=== PATIENT | female | born 1970 | race Caucasian/White ===

== ENCOUNTER → 2020-03-28 13:59 | Outpatient (BNVA) | payer MEDICAID, SELFPAY | PROVIDERS: Family Provider Family Medicine; PCP Family Medicine; Visit Provider Family Medicine | DX: R35.0 Frequency of micturition (principal); N39.0 Urinary tract infection, site not specified; R30.0 Dysuria; I10 Essential (primary) hypertension | CPT/HCPCS: 80053; 81003 ==

== ENCOUNTER → 2020-07-04 15:48 | Outpatient (BNVA) | payer MEDICAID, SELFPAY | PROVIDERS: Family Provider Family Medicine; PCP Family Medicine; Visit Provider Nurse Practitioner Family | DX: Z11.59 Encounter for screening for other viral diseases (principal); J06.9 Acute upper respiratory infection, unspecified | CPT/HCPCS: 87635 ==

== ENCOUNTER 2020-11-19 15:15 | Emergency (ER) | payer MEDICAID, SELFPAY ==
[2020-11-19] VITALS (8 sets, daily range): BP systolic 110–143; BP diastolic 76–92; PULSE 86–95; RESP 15–17; TEMP 36.2–36.5; O2SAT 98–100; BMI 31.9
--- NOTE | 2020-11-19 16:28 | XRR_ITS ---
PROCEDURE INFORMATION: Exam: XR Chest Exam date and time: 11/19/2020 4:40 PM Age: 50 years old Clinical indication: Cough; Prior surgery; Surgery date: 6+ months; Surgery type: Port, RT breast; Patient HX: PT has a HX of breast CA with chemo, last chemo 3-4 yrs ago TECHNIQUE: Imaging protocol: XR of the chest Views: 1 view. COMPARISON: No relevant prior studies available. FINDINGS: Tubes, catheters and devices: Infusion port catheter tip is in the superior vena cava. Lungs: Visualized portions of the lungs are clear. Pleural spaces: Unremarkable. No pleural effusion. No pneumothorax. Heart/Mediastinum: Heart is within normal limits of size. Bones/joints: Unremarkable. XR/XR chest 1V portable [id number] IMPRESSION: No acute infiltrates.
--- NOTE | 2020-11-19 17:20 | W.ED.NAVMDI ---
Documented by User: PAYTON Lawler 11/19/20 22:56 HPI - Nausea/Vomiting/Diarrhea General: Chief complaint: Nausea/Vomiting/Diarrhea Stated complaint: N/V, fatigue Time Seen by Provider: 11/19/20 16:37 History of Present Illness: HPI Narrative: Patient with nausea increased urination and thirst over the last week or 2. Was supposed to be worked up for diabetes. Was unable to make and to provider. Denies fever or chills. MD elicited complaint: nausea and diarrhea Onset (ago): week(s) Associated nausea: Yes Associated symtoms: Reports myalgias and nausea; Denies anxiety, change in vision, chest pain or headache(s) Review of Systems Const: Denies: fever(s), chills or body aches Eyes: Reports: blurry vision; Denies: change in vision ENMT: Reports: other (Increased thirst); Denies: throat pain or nasal congestion Card: Denies: chest pain or dyspnea on exertion Resp: Denies: dyspnea, productive cough or non-productive cough GI: Reports: nausea : Reports: urinary frequency Musc: Reports: other (Muscle aches); Denies: extremity pain Skin/Breast: Denies: rash Neuro: Denies: headache(s) Psych: Denies: anxiety or depression Sim/Lymph: Denies: easy bruising PFSH ED PFSH: Social History Smoking and tobacco status: current every day smoker cigarettes [ Other cigarette details: uses vape ] Alcohol intake: never Physical Exam Const: COMMON NORMALS: no acute distress, average body habitus and patient oriented x3 HENMT: COMMON NORMALS: normocephalic HEAD & SCALP: normal to inspection and normocephalic FACE & SINUS: normal facial exam Eye: COMMON NORMALS: conjunctivae normal GENERAL EYE: appearance normal, both eyes and all related structures CONJUNCTIVA: Yes conjunctivae normal Neck/C-Spine: COMMON NORMALS: no JVD Chest: COMMONS NORMALS: normal inspection of the chest Resp: COMMON NORMALS: normal respiratory effort and clear to auscultation bilaterally AUSCULTATION: clear to auscultation bilaterally Cardio: COMMON NORMALS: no JVD, regular rate and regular rhythm RATE: regular rate RHYTHM: regular rhythm GI: COMMON NORMALS: Normal to inspection, nondistended, normoactive bowel sounds present Extremity: COMMON NORMALS: normal to inspection and full ROM Neuro: COMMON NORMALS: patient oriented x3 Course Vital Signs: Vital signs: Vital Signs Temperature 97.5 F L 11/19/20 21:44 Pulse Rate 90 11/19/20 21:44 Respiratory Rate 16 11/19/20 21:44 Blood Pressure 131/82 11/19/20 21:44 Pulse Oximetry 100 11/19/20 21:44 MDM - Nausea/Vomiting/Diarrhea Lab Data: Labs: Lab Results 11/19/20 11/19/20 11/19/20 Range/Units 17:10 17:10 17:58 WBC 8.0 (4.0-10.0) 10^3/ uL RBC 2.55 L (4.1-5.3) 10^6/u L Hgb 6.4 L* (11.5-15.3) g/dL Hct 19.3 L* (37.0-47.0) % MCV 75.7 L (81-99) fL MCH 25.1 L (28.0-34.0) pg MCHC 33.2 (30.0-36.0) g/dL RDW 19.0 H (12.1-15.1) % Plt Count 309 (130-400) 10^3/c mm MPV 10.7 H (7.4-10.4) fL Neut % (Auto) 84.6 % Lymph % (Auto) 8.3 % [place] % (Auto) 4.4 % Eos % (Auto) 0.4 % Baso % (Auto) 0.4 % Neut # (Auto) 6.75 (1.8-7.7) 10^3/u L Lymph # (Auto) 0.7 L (0.8-4.8) 10^3/u L [place] # (Auto) 0.4 (0.2-0.9) 10^3/u L Eos # (Auto) 0.0 (0.0-0.8) 10^3/u L Baso # (Auto) 0.0 (0.0-0.1) 10^3/u L Nucleated RBC % (a uto) 0.3 % Nucleated RBCs # 0.0 /100WBC Sodium 124 L (136-145) mmol/L Potassium 4.5 (3.5-5.1) mmol/L Chloride 84 L (98-107) mmol/L Carbon Dioxide 8 L* (22-29) mmol/L Anion Gap 36.5 H (5-19) BUN 163 H* (6-20) mg/dL Creatinine 19.4 H* (0.5-0.9) mg/dL GFR Calculation 1.9 L (90-130) mL/min Glucose 92 (65-115) mg/dL Calculated Osmolal ity 311 H (285-295) mOsm/k g Calcium 8.4 L (8.5-10.5) mg/dL Total Bilirubin 0.2 (0.15-1.2) mg/dL AST 12 (0-32) U/L ALT 12 (0-33) U/L Alkaline Phosphata se 88 (35-105) IU/L Total Protein 6.9 (6.6-8.7) g/dL Albumin 3.7 (3.5-5.2) g/dL Globulin 3.2 (1.3-4.6) g/dL Lipase 200 H (13-60) U/L Urine Color (Yellow) Urine Appearance (CLEAR) Urine pH (5-7) Ur Specific Gravit y (1.005-1.030) Urine Protein (Negative) Urine Glucose (UA) (Normal) Urine Ketones (Negative) Urine Blood (Negative) Urine Nitrate (Negative) Urine Bilirubin (Negative) Urine Urobilinogen (Negative) mg/dL Ur Leukocyte Mechelle ase (Negative) Urine RBC (0-2) /hpf Urine WBC (0-5) /hpf Ur Squamous Epith Cells (0-5) /hpf Amorphous Sediment Urine Bacteria (NONE) /hpf Blood Type O Positive Rho(D) Type Positive Antibody Screen Negative Crossmatch See Detail 11/19/20 Range/Units 21:04 WBC (4.0-10.0) 10^3/ uL RBC (4.1-5.3) 10^6/u L Hgb (11.5-15.3) g/dL Hct (37.0-47.0) % MCV (81-99) fL MCH (28.0-34.0) pg MCHC (30.0-36.0) g/dL RDW (12.1-15.1) % Plt Count (130-400) 10^3/c mm MPV (7.4-10.4) fL Neut % (Auto) % Lymph % (Auto) % [place] % (Auto) % Eos % (Auto) % Baso % (Auto) % Neut # (Auto) (1.8-7.7) 10^3/u L Lymph # (Auto) (0.8-4.8) 10^3/u L [place] # (Auto) (0.2-0.9) 10^3/u L Eos # (Auto) (0.0-0.8) 10^3/u L Baso # (Auto) (0.0-0.1) 10^3/u L Nucleated RBC % (a uto) % Nucleated RBCs # /100WBC Sodium (136-145) mmol/L Potassium (3.5-5.1) mmol/L Chloride (98-107) mmol/L Carbon Dioxide (22-29) mmol/L Anion Gap (5-19) BUN (6-20) mg/dL Creatinine (0.5-0.9) mg/dL GFR Calculation (90-130) mL/min Glucose (65-115) mg/dL Calculated Osmolal ity (285-295) mOsm/k g Calcium (8.5-10.5) mg/dL Total Bilirubin (0.15-1.2) mg/dL AST (0-32) U/L ALT (0-33) U/L Alkaline Phosphata se (35-105) IU/L Total Protein (6.6-8.7) g/dL Albumin (3.5-5.2) g/dL Globulin (1.3-4.6) g/dL Lipase (13-60) U/L Urine Color Yellow (Yellow) Urine Appearance Sl cloudy A (CLEAR) Urine pH 5 (5-7) Ur Specific Gravit y 1.010 (1.005-1.030) Urine Protein Neg (Negative) Urine Glucose (UA) Norm (Normal) Urine Ketones Negative (Negative) Urine Blood 3+ H (Negative) Urine Nitrate Positive H (Negative) Urine Bilirubin Neg (Negative) Urine Urobilinogen Norm (Negative) mg/dL Ur Leukocyte Mechelle ase 2+ H (Negative) Urine RBC Too numerous to c nt H (0-2) /hpf Urine WBC Too numerous to c nt H (0-5) /hpf Ur Squamous Epith Cells 0-4 H (0-5) /hpf Amorphous Sediment Not Reportable Urine Bacteria 4+ H (NONE) /hpf Blood Type Rho(D) Type Antibody Screen Crossmatch Discharge Plan Discharge Patient Disposition: Xfer Other Clinical Impression: Bladder cancer, Acute renal failure, Severe anemia, Acute hyponatremia, Acute urinary obstruction Condition: Stable Referrals: Ortiz Clark DO [Primary Care Provider] - Coding Level of Care Code ED Hospital Admitting Clerk for Chg Fwd Exam Comprehensive Documented by User: Kalen Herrera MD 11/19/20 21:17 HPI - Nausea/Vomiting/Diarrhea General: Chief complaint: Nausea/Vomiting/Diarrhea Stated complaint: N/V, fatigue Time Seen by Provider: 11/19/20 16:37 PFSH ED PFSH: Social History Smoking and tobacco status: current every day smoker cigarettes [ Other cigarette details: uses vape ] Alcohol intake: never Course Vital Signs: Vital signs: Vital Signs Temperature 97.5 F L 11/19/20 21:44 Pulse Rate 90 11/19/20 21:44 Respiratory Rate 16 11/19/20 21:44 Blood Pressure 131/82 11/19/20 21:44 Pulse Oximetry 100 11/19/20 21:44 MDM - Nausea/Vomiting/Diarrhea MDM Narrative: Medical decision making narrative: I took over care of this patient from the midlevel provider. She has anemia which is severe 6.4. Guaiac is negative for blood. Creatinine is 19.4 and BUN 163. Potassium normal. She is in acute renal failure cause unknown and this is a new diagnosis today. Discussed with Dr. Brock who accepts for further care and will consult nephrology and surgery upstairs. The patient continues to urinate a normal amount she says. Gave her a liter of IV fluids prior to admission. Also typed and crossmatched for transfusion of 1 unit PRBC. Discussed with the hospitalist Dr Brock after the patient's CT scan but came back showing a primary cancer of the bladder obstructing the urethra and bilateral ureterovesicular junctions. Associated bladder distention and hydroureter and hydronephrosis. Discussed with Dr. Ibarra who recommended transfer as the patient likely needs urostomy tubes placed prior to a stenting procedure.. Discussed with patient and family and they preferred transfer to [place]. Discussed with [facility] physician Dr. Herrera who accepts for transfer. Lab Data: Labs: Lab Results 11/19/20 11/19/20 11/19/20 Range/Units 17:10 17:10 17:58 WBC 8.0 (4.0-10.0) 10^3/ uL RBC 2.55 L (4.1-5.3) 10^6/u L Hgb 6.4 L* (11.5-15.3) g/dL Hct 19.3 L* (37.0-47.0) % MCV 75.7 L (81-99) fL MCH 25.1 L (28.0-34.0) pg MCHC 33.2 (30.0-36.0) g/dL RDW 19.0 H (12.1-15.1) % Plt Count 309 (130-400) 10^3/c mm MPV 10.7 H (7.4-10.4) fL Neut % (Auto) 84.6 % Lymph % (Auto) 8.3 % [place] % (Auto) 4.4 % Eos % (Auto) 0.4 % Baso % (Auto) 0.4 % Neut # (Auto) 6.75 (1.8-7.7) 10^3/u L Lymph # (Auto) 0.7 L (0.8-4.8) 10^3/u L [place] # (Auto) 0.4 (0.2-0.9) 10^3/u L Eos # (Auto) 0.0 (0.0-0.8) 10^3/u L Baso # (Auto) 0.0 (0.0-0.1) 10^3/u L Nucleated RBC % (a uto) 0.3 % Nucleated RBCs # 0.0 /100WBC Sodium 124 L (136-145) mmol/L Potassium 4.5 (3.5-5.1) mmol/L Chloride 84 L (98-107) mmol/L Carbon Dioxide 8 L* (22-29) mmol/L Anion Gap 36.5 H (5-19) BUN 163 H* (6-20) mg/dL Creatinine 19.4 H* (0.5-0.9) mg/dL GFR Calculation 1.9 L (90-130) mL/min Glucose 92 (65-115) mg/dL Calculated Osmolal ity 311 H (285-295) mOsm/k g Calcium 8.4 L (8.5-10.5) mg/dL Total Bilirubin 0.2 (0.15-1.2) mg/dL AST 12 (0-32) U/L ALT 12 (0-33) U/L Alkaline Phosphata se 88 (35-105) IU/L Total Protein 6.9 (6.6-8.7) g/dL Albumin 3.7 (3.5-5.2) g/dL Globulin 3.2 (1.3-4.6) g/dL Lipase 200 H (13-60) U/L Urine Color (Yellow) Urine Appearance (CLEAR) Urine pH (5-7) Ur Specific Gravit y (1.005-1.030) Urine Protein (Negative) Urine Glucose (UA) (Normal) Urine Ketones (Negative) Urine Blood (Negative) Urine Nitrate (Negative) Urine Bilirubin (Negative) Urine Urobilinogen (Negative) mg/dL Ur Leukocyte Mechelle ase (Negative) Urine RBC (0-2) /hpf Urine WBC (0-5) /hpf Ur Squamous Epith Cells (0-5) /hpf Amorphous Sediment Urine Bacteria (NONE) /hpf Blood Type O Positive Rho(D) Type Positive Antibody Screen Negative Crossmatch See Detail 11/19/20 Range/Units 21:04 WBC (4.0-10.0) 10^3/ uL RBC (4.1-5.3) 10^6/u L Hgb (11.5-15.3) g/dL Hct (37.0-47.0) % MCV (81-99) fL MCH (28.0-34.0) pg MCHC (30.0-36.0) g/dL RDW (12.1-15.1) % Plt Count (130-400) 10^3/c mm MPV (7.4-10.4) fL Neut % (Auto) % Lymph % (Auto) % [place] % (Auto) % Eos % (Auto) % Baso % (Auto) % Neut # (Auto) (1.8-7.7) 10^3/u L Lymph # (Auto) (0.8-4.8) 10^3/u L [place] # (Auto) (0.2-0.9) 10^3/u L Eos # (Auto) (0.0-0.8) 10^3/u L Baso # (Auto) (0.0-0.1) 10^3/u L Nucleated RBC % (a uto) % Nucleated RBCs # /100WBC Sodium (136-145) mmol/L Potassium (3.5-5.1) mmol/L Chloride (98-107) mmol/L Carbon Dioxide (22-29) mmol/L Anion Gap (5-19) BUN (6-20) mg/dL Creatinine (0.5-0.9) mg/dL GFR Calculation (90-130) mL/min Glucose (65-115) mg/dL Calculated Osmolal ity (285-295) mOsm/k g Calcium (8.5-10.5) mg/dL Total Bilirubin (0.15-1.2) mg/dL AST (0-32) U/L ALT (0-33) U/L Alkaline Phosphata se (35-105) IU/L Total Protein (6.6-8.7) g/dL Albumin (3.5-5.2) g/dL Globulin (1.3-4.6) g/dL Lipase (13-60) U/L Urine Color Yellow (Yellow) Urine Appearance Sl cloudy A (CLEAR) Urine pH 5 (5-7) Ur Specific Gravit y 1.010 (1.005-1.030) Urine Protein Neg (Negative) Urine Glucose (UA) Norm (Normal) Urine Ketones Negative (Negative) Urine Blood 3+ H (Negative) Urine Nitrate Positive H (Negative) Urine Bilirubin Neg (Negative) Urine Urobilinogen Norm (Negative) mg/dL Ur Leukocyte Mechelle ase 2+ H (Negative) Urine RBC Too numerous to c nt H (0-2) /hpf Urine WBC Too numerous to c nt H (0-5) /hpf Ur Squamous Epith Cells 0-4 H (0-5) /hpf Amorphous Sediment Not Reportable Urine Bacteria 4+ H (NONE) /hpf Blood Type Rho(D) Type Antibody Screen Crossmatch Discharge Plan Discharge Patient Disposition: Xfer Other Clinical Impression: Bladder cancer, Acute renal failure, Severe anemia, Acute hyponatremia, Acute urinary obstruction Condition: Stable Referrals: Ortiz Clark DO [Primary Care Provider] - Coding Level of Care Code ED Hospital Admitting Clerk for Chg Fwd Exam Comprehensive
[2020-11-19 17:22] LABS: Basophils % 0.4 %; Eosinophils % 0.4 %; Lymphocytes # 0.7 10^3/uL (0.8-4.8); Lymphocytes % 8.3 %; Mean Corpuscular HGB Conc 33.2 g/dL (30.0-36.0); Mean Corpuscular Hemoglobin 25.1 pg (28.0-34.0); Mean Corpuscular Volume 75.7 fL (81-99); Mean Platelet Volume 10.7 fL (7.4-10.4); Monocytes # 0.4 10^3/uL (0.2-0.9); Monocytes % 4.4 %; Neutrophils # 6.75 10^3/uL (1.8-7.7); Neutrophils % 84.6 %; Nucleated Red Blood Cells % 0.3 %; Platelet Count 309 10^3/cmm (130-400); Red Blood Count 2.55 10^6/uL (4.1-5.3)
[2020-11-19 17:34] LABS: Hematocrit 19.3 % (37.0-47.0); Hemoglobin 6.4 g/dL (11.5-15.3)
[2020-11-19 18:00] LABS: Alanine Aminotransferase 12 U/L (0-33); Albumin Level 3.7 g/dL (3.5-5.2); Alkaline Phosphatase 88 IU/L (35-105); Aspartate Amino Transferase 12 U/L (0-32); Calcium 8.4 mg/dL (8.5-10.5); Chloride 84 mmol/L (98-107); Globulin 3.2 g/dL (1.3-4.6); Glomerular Filtration Rate 1.9 mL/min (90-130); Glucose 92 mg/dL (65-115); Lipase 200 U/L (13-60); Sodium 124 mmol/L (136-145); Total Bilirubin 0.2 mg/dL (0.15-1.2); Total Protein 6.9 g/dL (6.6-8.7)
[2020-11-19 18:11] LABS: Anion Gap 36.5 (5-19); Blood Urea Nitrogen 163 mg/dL (6-20); Carbon Dioxide 8 mmol/L (22-29); Osmolality Calculated 311 mOsm/kg (285-295); Potassium 4.5 mmol/L (3.5-5.1)
--- NOTE | 2020-11-19 18:13 | CTR_ITS ---
PROCEDURE INFORMATION: Exam: CT Abdomen And Pelvis Without Contrast Exam date and time: 11/19/2020 6:19 PM Age: 50 years old Clinical indication: Abdominal pain; Additional info: Abd pain TECHNIQUE: Imaging protocol: Computed tomography of the abdomen and pelvis without contrast. Radiation optimization: All CT scans at this facility use at least one of these dose optimization techniques: automated exposure control; mA and/or kV adjustment per patient size (includes targeted exams where dose is matched to clinical indication); or iterative reconstruction. COMPARISON: No relevant prior studies available. RADIATION DOSE METRICS: Total DLP (mGy-cm): 1464.47 FINDINGS: Liver: Normal. No mass. Gallbladder and bile ducts: Normal. No calcified stones. No ductal dilation. Pancreas: Normal. No ductal dilation. Spleen: Normal. No splenomegaly. Adrenal glands: Normal. No mass. Kidneys and ureters: [id number] bilateral hydronephrosis and hydroureter. Stomach and bowel: Colonic constipation is present. Appendix: No evidence of appendicitis. Intraperitoneal space: Unremarkable. No free air. No significant fluid collection. Vasculature: See Urinary bladder finding. Lymph nodes: Unremarkable. No enlarged lymph nodes. Urinary bladder: There are multiple masses arising from the bladder wall both endophytic an exophytic. The largest is at the base of the bladder and measures 9.4 cm in the transverse dimension. The bladder masses appear to obstruct the bilateral UVJ. Urethra appears to be obstructed as well. The bladder is distended. Reproductive: Unremarkable as visualized. Bones/joints: Unremarkable. No acute fracture. Soft tissues: Unremarkable. CT/CT abdomen pelvis wo con [id number] IMPRESSION: 1. Multiple masses arise from the bladder wall. Top differential diagnosis is transitional cell carcinoma. There is resultant bilateral hydronephrosis and hydroureter. The bladder is distended consistent with bladder outlet obstruction as well. 2. Colonic constipation is present. Radiation Dose CTDIVOL = (mGy): DLP = 1464.47 (mGy-cm)
[2020-11-19] MEDS: sodium chloride 0.9% 1,000 ML 999 ML IV (20:18)
[2020-11-19 21:24] LABS: Bilirubin Urine Neg (Negative); Blood Urine 3+ (Negative); Glucose Urine UA Norm (Normal); Ketones Urine Negative (Negative); Leukocyte Esterase Urine 2+ (Negative); Nitrate Urine Positive (Negative); Protein Urine Neg (Negative); Urine Color Yellow (Yellow); Urobilinogen Urine Norm (Negative); pH Urine 5 (5-7)
[2020-11-19 21:27] LABS: Add Urine Culture? Yes; Bacteria Urine 4+ /hpf; RBC Urine TOO NUMEROUS TO CNT /hpf (0-2); Squamous Epithelial Cell Urine 0-4 /hpf (0-5); WBC Urine TOO NUMEROUS TO CNT /hpf (0-5)
== END 2020-11-19 21:49 | disposition other institution (70) ==
PROVIDERS: Physician Assistant; Emergency Provider Family Medicine; PCP Family Medicine
DX: D64.89 Other specified anemias (principal); E87.1 Hypo-osmolality and hyponatremia; N13.9 Obstructive and reflux uropathy, unspecified; N17.9 Acute kidney failure, unspecified; C67.9 Malignant neoplasm of bladder, unspecified; F17.210 Nicotine dependence, cigarettes, uncomplicated
CPT/HCPCS: 36430; 51702; 71045; 74176; 80053; 81001; 83690; 85025; 86850; 86900; 86920; 87086; 96360; 99285; J7030; P9016

== ENCOUNTER 2022-09-17 | Emergency (ER) | payer MEDICAID, SELFPAY ==
[2022-09-17] VITALS (20 sets, daily range): BP systolic 94–111; BP diastolic 50–81; PULSE 87–109; RESP 11–19; TEMP 36.8–36.9; O2SAT 89–99; BMI 22.8
--- NOTE | 2022-09-17 00:05 | ECG_ITS ---
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 Measurements Intervals [place] Rate: 111 P: 62 [place]: 150 QRS: 17 QRSD: 106 T: 93 QT: 358 QTc: 488 Interpretive Statements SINUS TACHYCARDIA NONSPECIFIC T-WAVE ABNORMALITY INTERPRETATION BASED ON A DEFAULT AGE OF 40 YEARS No previous ECG available for comparison Electronically Signed On 09-17-2022 9:29:51 SHINGLE CATCHER by Laura Dooley M.D. [id number]
--- NOTE | 2022-09-17 00:08 | CTR_ITS ---
PROCEDURE INFORMATION: Exam: CT Chest Without Contrast; Diagnostic Exam date and time: 09/17/2022 1:46 AM Age: 52 years old Clinical indication: Abnormal findings; Abnormal lab test; Abnormal kidney function lab tests and elevated wbc; Other: N/a; Prior surgery; Surgery type: Partial mastectomy. Chest port. Ileostomy. Patient HX: Wbc of 25k. Creat. Of 8. Bacteriuria. ; Additional info: AMS TECHNIQUE: Imaging protocol: Diagnostic computed tomography of the chest without contrast. Radiation optimization: All CT scans at this facility use at least one of these dose optimization techniques: automated exposure control; mA and/or kV adjustment per patient size (includes targeted exams where dose is matched to clinical indication); or iterative reconstruction. COMPARISON: CR (CHEST, ) 09/17/2022 12:26 AM RADIATION DOSE METRICS: Total DLP (mGy-cm): 760.44 FINDINGS: Tubes, catheters and devices: A right port is noted. Lungs: Lungs show no dominant mass or spiculated nodule. No consolidation. No evidence of CHF. Pleural spaces: No effusion or pneumothorax. Heart: The heart is normal size. No pericardial effusion. Coronary arteries: No evidence of significant coronary artery calcification. Lymph nodes: No overt lymphadenopathy. Vasculature: No acute finding noted. No aortic aneurysm. Bones/joints: No acute or aggressive bone lesion. Soft tissues: Unremarkable. PROCEDURE INFORMATION: Exam: CT Abdomen And Pelvis Without Contrast Exam date and time: 09/17/2022 1:46 AM Age: 52 years old Clinical indication: Abnormal findings; Abnormal lab test; Abnormal kidney function lab tests and elevated wbc; Other: N/a; Prior surgery; Surgery type: Partial mastectomy. Chest port. Ileostomy. Patient HX: Wbc of 25k. Creat. Of 8. Bacteriuria. ; Additional info: AMS TECHNIQUE: Imaging protocol: Computed tomography of the abdomen and pelvis without contrast. Radiation optimization: All CT scans at this facility use at least one of these dose optimization techniques: automated exposure control; mA and/or kV adjustment per patient size (includes targeted exams where dose is matched to clinical indication); or iterative reconstruction. COMPARISON: CT abdomen pelvis wo con [id number] 11/19/2020 6:41 PM RADIATION DOSE METRICS: Total DLP (mGy-cm): 760.44 FINDINGS: Lungs: The visualized lung bases are clear. Liver: Large liver. Gallbladder and bile ducts: No calcified gallstones or biliary dilation identified. Pancreas: Unremarkable with no suspicious mass. No ductal dilation. Spleen: The spleen is not enlarged. No suspicious mass is noted. Adrenal glands: Unchanged bilateral adrenal hyperplasia. Kidneys and ureters: Lobular scarred kidneys present with essentially resolved hydronephrosis from prior. Stomach and bowel: Advanced constipation. No small bowel obstruction, abscess or free air. Mild sigmoid diverticulosis. Multifocal bowel postop changes. Appendix: No evidence of appendicitis. Intraperitoneal space: See Stomach and bowel finding. Vasculature: Advanced diffuse vascular calcification noted. Lymph nodes: Multiple left retroperitoneal mainly periaortic lymph nodes measure up to 2.3 cm. Urinary bladder: The bladder is surgically absent. Reproductive: Absent uterus. Bones/joints: No acute fracture. Diffuse osteopenia. Soft tissues: A right mid abdominal urostomy is seen with a parastomal fat hernia. Small fat umbilical hernia. CT/[place] [id number] IMPRESSION: No acute finding. IMPRESSION: 1. No definite acute finding. 2. Interval cystectomy with formation of a right mid abdominal urostomy and virtually resolved bilateral hydroureteronephrosis. The kidneys are lobular and scarred on a chronic basis. 3. There is vqaq-[id number]-[id number] retroperitoneal lymphadenopathy. These nodes should be appropriately followed up. These nodes may be reactive or metastatic. 4. Constipation with no bowel obstruction. Numerous chronic findings above.
--- NOTE | 2022-09-17 00:08 | CTR_ITS ---
PROCEDURE INFORMATION: Exam: CT Head Without Contrast Exam date and time: 09/17/2022 1:41 AM Age: 52 years old Clinical indication: Altered mental status/memory loss; Confusion or disorientation; Patient HX: AMS. Patient acting confused. TECHNIQUE: Imaging protocol: Computed tomography of the head without contrast. Radiation optimization: All CT scans at this facility use at least one of these dose optimization techniques: automated exposure control; mA and/or kV adjustment per patient size (includes targeted exams where dose is matched to clinical indication); or iterative reconstruction. COMPARISON: No relevant prior studies available. RADIATION DOSE METRICS: Total DLP (mGy-cm): 1599.48 FINDINGS: Brain: No focal hemorrhage or midline shift is identified. Cerebral ventricles: No ventriculomegaly or evidence of acute hydrocephalus. Paranasal sinuses: The partially assessed sinuses are grossly clear. Mastoid air cells: Visualized mastoid air cells are well aerated. Bones/joints: No displaced skull fracture is noted. Soft tissues: Unremarkable. CT/CT head wo con* [id number] IMPRESSION: 1. No focal hemorrhage or midline shift. 2. The exam is motion limited. This causes some likely artifactual blurring of the delaney-white matter interface on a few levels. 3. If there is concern for acute CVA, MRI may be helpful.
--- NOTE | 2022-09-17 00:08 | XRR_ITS ---
PROCEDURE INFORMATION: Exam: XR Chest Exam date and time: 09/17/2022 12:26 AM Age: 52 years old Clinical indication: Shortness of breath; Chest pressure; Prior surgery; Surgery type: RT partial mastectomy. Port; Patient HX: C/O chest pain with SOB. History of breast cancer. ; Additional info: AMS TECHNIQUE: Imaging protocol: Radiologic exam of the chest. Views: 1 view. COMPARISON: CR XR chest 1V portable [id number] 11/19/2020 4:31 PM FINDINGS: Tubes, catheters and devices: Right IJ port in place. Lungs: A few minute calcified lung nodules are seen incidentally. No consolidation. Pleural spaces: Unremarkable. No pleural effusion. No pneumothorax. Heart/Mediastinum: The heart is large. Vasculature: Diffuse vascular calcification. Bones/joints: Unremarkable. Soft tissues: Right breast and axillary clips. XR/XR chest 1V portable [id number] IMPRESSION: Chronic findings above, negative for acute process.
--- NOTE | 2022-09-17 00:11 | ED_ITS ---
HPI - General Adult General: Chief complaint: General Medical Stated complaint: CP/SOB/AMS Time Seen by Provider: 09/17/22 00:06 Source: patient and EMS Mode of arrival: EMS Limitations: altered mental status History of Present Illness: 52-year-old female history of breast and bladder cancer she has had her bladder removed has a urostomy per EMS patient's been having weakness along with some chest pain shortness of breath fatigue and altered male status over the last few days they states a history from her and family is very difficult he states that she has some sort of infection diagnosed at her clinic and is currently on Bactrim she had mental decline they state over the last 2 days here she is able to tell me her name is not really able to answer many questions she has had some dyspnea and cough she is afebrile here denies any pain anywhere. Review of Systems General: Reports: ROS unobtainable due to mental status PFS ED PFSH: Medical History (Updated 09/17/22 @ 02:29 by Shahana Perez MD) History of breast cancer Surgical History (Updated 09/17/22 @ 00:12 by Shahana Perez MD) History of partial mastectomy of right breast Social History Smoking and tobacco status: current every day smoker cigarettes [ Other cigarette details: uses vape] Alcohol intake: never Physical Exam Const: COMMON NORMALS: alert; negative for patient oriented x3 GENERAL APPEARANCE: ill appearing ORIENTATION/CONSCIOUSNESS: Yes oriented to person; not oriented to place and not oriented to time HENMT: COMMON NORMALS: normocephalic and atraumatic HEAD & SCALP: normocephalic and atraumatic Eye: COMMON NORMALS: Equal, round and reactive pupils present and EOMs intact bilaterally PUPIL: Yes Equal, round and reactive pupils present Neck/C-Spine: COMMON NORMALS: full ROM and supple Chest: COMMONS NORMALS: normal inspection of the chest and normal palpation of entire chest wall Resp: COMMON NORMALS: normal respiratory effort, No retractions, No use of accessory muscles and clear to auscultation bilaterally AUSCULTATION: clear to auscultation bilaterally Cardio: COMMON NORMALS: regular rhythm and No murmurs present (Cardio) RATE: tachycardic RHYTHM: regular rhythm GI: COMMON NORMALS: Normal to inspection, nondistended, normoactive bowel s ounds present, Soft to palpation, non-tender and no masses PALPATION: Yes Soft to palpation Extremity: COMMON NORMALS: normal to inspection and full ROM Neuro: COMMON NORMALS: moves all extremities and no focal motor deficits; negative for patient oriented x3 SENSORIUM/ORIENTATION: Yes alert, Yes oriented to person, No oriented to place and No oriented to time Psych: COMMON NORMALS: cooperative; negative for mental status grossly normal and negative for Normal thought process present THOUGHT PROCESS: abnormal Skin: COMMON NORMALS: no rashes or lesions noted and no wounds GENERAL SKIN EXAM: no rashes or lesions noted Course Vital Signs: Vital signs: Vital Signs Temperature 98.4 F 09/17/22 00:04 Pulse Rate 92 09/17/22 02:50 Respiratory Rate 15 09/17/22 02:50 Blood Pressure 105/65 09/17/22 02:30 Pulse Oximetry 97 09/17/22 02:50 Oxygen Delivery Me thod 09/17/22 00:45 [facility] - General Adult Medical Decision Making Patient presents here with acute renal failure with a severe metabolic acidosis patient also is altered mental status likely due to her metabolic acidosis she also tested positive for amphetamines she does have an elevated white count a possible UTI treated antibiotics did speak to outpatient psychiatrist at [facility] and will transfer there for ICU availability Lab Data 09/17/22 00:14 09/17/22 00:14 Radiology Impressions Chest X-Ray 09/17/22 00:08 IMPRESSION: Chronic findings above, negative for acute process. Chest/Abdomen/Pelvis CT 09/17/22 00:08 IMPRESSION: No acute finding. IMPRESSION: 1. No definite acute finding. 2. Interval cystectomy with formation of a right mid abdominal urostomy and virtually resolved bilateral hydroureteronephrosis. The kidneys are lobular and scarred on a chronic basis. 3. There is [id number] retroperitoneal lymphadenopathy. These nodes should be appropriately followed up. These nodes may be reactive or metastatic. 4. Constipation with no bowel obstruction. Numerous chronic findings above. Head CT 09/17/22 00:08 IMPRESSION: 1. No focal hemorrhage or midline shift. 2. The exam is motion limited. This causes some likely artifactual blurring of the delaney-white matter interface on a few levels. 3. If there is concern for acute CVA, MRI may be helpful. Laboratory Results WBC 25.7 10^3/uL (4.0-10.0) H 09/17/22 00:14 RBC 3.09 10^6/uL (4.1-5.3) L 09/17/22 00:14 Hgb 8.3 g/dL (11.5-15.3) L 09/17/22 00:14 Hct 26.5 % (37.0-47.0) L 09/17/22 00:14 MCV 85.8 fl (81-99) 09/17/22 00:14 MCH 26.9 pg (28.0-34.0) L 09/17/22 00:14 MCHC 31.3 g/dL (30.0-36.0) 09/17/22 00:14 RDW 18.3 % (12.1-15.1) H 09/17/22 00:14 Plt Count 253 10^3/cmm (130-400) 09/17/22 00:14 MPV 11.4 fL (7.4-10.4) H 09/17/22 00:14 Neut % (Auto) 87.3 % 09/17/22 00:14 Lymph % (Auto) 1.3 % 09/17/22 00:14 Harper % (Auto) 4.2 % 09/17/22 00:14 Eos % (Auto) 0.0 % 09/17/22 00:14 Baso % (Auto) 0.2 % 09/17/22 00:14 Neut # (Auto) 22.50 10^3/uL (1.8-7.7) H 09/17/22 00:14 Lymph # (Auto) 0.3 10^3/uL (0.8-4.8) L 09/17/22 00:14 Harper # (Auto) 1.1 10^3/uL (0.2-0.9) H 09/17/22 00:14 Eos # (Auto) 0.0 10^3/uL (0.0-0.8) 09/17/22 00:14 Baso # (Auto) 0.0 10^3/uL (0.0-0.1) 09/17/22 00:14 Nucleated RBC % (auto) 0.1 % 09/17/22 00:14 Nucleated RBCs # 0.0 /100WBC 09/17/22 00:14 PT 15.90 SECONDS (12.1-14.9) H 09/17/22 00:14 INR 1.24 (0.8-1.2) H 09/17/22 00:14 Specimen Type Arterial 09/17/22 02:07 Sample Site Brachial, right 09/17/22 02:07 ABG pH 7.04 (7.35-7.45) L* 09/17/22 02:07 ABG pCO2 14.1 mmHg (35-45) L* 09/17/22 02:07 ABG pO2 120.0 mmHg (80.0-100.0) H 09/17/22 02:07 ABG HCO3 3.8 mmol/L (22-26) L 09/17/22 02:07 ABG Base Excess -24.7 mmol/L (-2.0-2.0) L 09/17/22 02:07 Dajuan Test N/a 09/17/22 02:07 Hematocrit 22.5 % (37-47) L 09/17/22 02:07 O2 Delivery Device None 09/17/22 02:07 FiO2 21.0 % 09/17/22 02:07 Manufacturing Sales Representative ID Benitadavid 09/17/22 02:07 Sodium 131 mmol/L (136-145) L 09/17/22 00:14 Potassium 4.3 mmol/L (3.5-5.1) 09/17/22 00:14 Chloride 103 mmol/L (98-107) 09/17/22 00:14 Carbon Dioxide 4 mmol/L (22-29) L* 09/17/22 00:14 Anion Gap 28.3 (5-19) H 09/17/22 00:14 BUN 149 mg/dL (6-20) H* 09/17/22 00:14 Creatinine 8.0 mg/dL (0.5-0.9) H* 09/17/22 00:14 GFR Calculation 5.2 mL/min (90-130) L 09/17/22 00:14 Glucose 76 mg/dL (65-115) 09/17/22 00:14 Calculated Osmolality 319 mOsm/kg (285-295) H 09/17/22 00:14 Lactate 0.6 mmol/L (0.5-2.2) 09/17/22 00:14 Calcium 7.4 mg/dL (8.5-10.5) L 09/17/22 00:14 Total Bilirubin 0.2 mg/dL (0.15-1.2) 09/17/22 00:14 AST 9 U/L (0-32) 09/17/22 00:14 ALT 18 U/L (0-33) 09/17/22 00:14 Alkaline Phosphatase 146 U/L (35-105) H 09/17/22 00:14 Troponin T Baseline 82 ng/L (0-10) H 09/17/22 00:14 Troponin T 120 Minute 70.18 ng/L (0-10) H 09/17/22 02:15 Delta Troponin T -11.82 ABS# (0-10) L 09/17/22 02:15 NT-Pro-B Natriuret Pep 82800 pg/mL (0-125) H 09/17/22 00:14 Total Protein 7.3 g/dL (6.6-8.7) 09/17/22 00:14 Albumin 3.8 g/dL (3.5-5.2) 09/17/22 00:14 Globulin 3.5 g/dL (1.3-4.6) 09/17/22 00:14 TSH 0.78 uIU/mL (0.27-4.20) 09/17/22 00:14 Urine Color Yellow (Yellow) 09/17/22 00:32 Urine Appearance Sl hazy (CLEAR) A 09/17/22 00:32 Urine pH 6 (5-7) 09/17/22 00:32 Ur Specific [place] 1.010 (1.005-1.030) 09/17/22 00:32 Urine Protein 1+ (Negative) H 09/17/22 00:32 Urine Glucose (UA) Norm (Normal) 09/17/22 00:32 Urine Ketones Negative (Negative) 09/17/22 00:32 Urine Blood 3+ (Negative) H 09/17/22 00:32 Urine Nitrate Negative (Negative) 09/17/22 00:32 Urine Bilirubin Neg (Negative) 09/17/22 00:32 Urine Urobilinogen Norm mg/dL (Negative) 09/17/22 00:32 Ur Leukocyte Esterase 2+ (Negative) H 09/17/22 00:32 Urine RBC Too numerous to cnt /hpf (0-2) H 09/17/22 00:32 Urine WBC Too numerous to cnt /hpf (0-5) H 09/17/22 00:32 Ur Squamous Epith Cells 5-10 /hpf (0-5) H 09/17/22 00:32 Amorphous Sediment Not Reportable 09/17/22 00:32 Urine Bacteria 3+ /hpf (NONE) H 09/17/22 00:32 Urine Opiates Screen Negative ng/mL (Negative) 09/17/22 00:32 Ur Barbiturates Screen Negative ng/mL (Negative) 09/17/22 00:32 Ur Phencyclidine Scrn Negative ng/mL (Negative) 09/17/22 00:32 Ur Amphetamines Screen Positive ng/mL (Negative) H 09/17/22 00:32 U Benzodiazepines Scrn Positive ng/mL (Negative) H 09/17/22 00:32 Urine Cocaine Screen Negative ng/mL (Negative) 09/17/22 00:32 U Marijuana (THC) Screen Negative ng/mL (Negative) 09/17/22 00:32 Ethyl Alcohol < 10 mg/dL (0-10) 09/17/22 00:14 Influenza Type A Ag negative (Negative) 09/17/22 00:19 Influenza Type B Ag negative (Negative) 09/17/22 00:19 SARS-CoV-2 Ag (Rapid) negative (Negative) 09/17/22 00:19 EKG Data EKG 1: I personally reviewed and interpreted this EKG as follows: EKG interpretation date: 09/17/22 EKG interpretation time: 00:05 Interpretation: sinus tach hr [address] or t wave abnormalities Computer generated interpretation: Chest X-Ray 09/17/22 00:08 IMPRESSION: Chronic findings above, negative for acute process. Chest/Abdomen/Pelvis CT 09/17/22 00:08 IMPRESSION: No acute finding. IMPRESSION: 1. No definite acute finding. 2. Interval cystectomy with formation of a right mid abdominal urostomy and virtually resolved bilateral hydroureteronephrosis. The kidneys are lobular and scarred on a chronic basis. 3. There is yheh-we-fokdzuqo retroperitoneal lymphadenopathy. These nodes should be appropriately followed up. These nodes may be reactive or metastatic. 4. Constipation with no bowel obstruction. Numerous chronic findings above. Head CT 09/17/22 00:08 IMPRESSION: 1. No focal hemorrhage or midline shift. 2. The exam is motion limited. This causes some likely artifactual blurring of the delaney-white matter interface on a few levels. 3. If there is concern for acute CVA, MRI may be helpful. Critical Care Time Critical Care Time: Critical Care Time: Yes Total Critical Care Time: 45 Attestation: The high probability of a clinically significant, sudden or life threatening deterioration of the patient's endocrine system(s) required my full and direct attention, intervention and personal management. The critical care time is as shown. This time is in addition to time spent performing any reported procedures but includes the following: [x] Data and vital sign review and interpretation [x] Patient assessment, examination and intervention [x] Documentation [x] Medication orders and management Discharge Plan Discharge Patient Disposition: Xfer Short-Term Hosp Clinical Impression: Altered mental status, Acute kidney failure, Metabolic acidosis, Methamp hetamine abuse Condition: Stable Referrals: Ortiz Clark DO [Primary Care Provider] - Coding Level of Care Code ED Fruit Farmer for Chg Fwd Exam Comprehensive
[2022-09-17 00:36] LABS: Hematocrit 26.5 % (37.0-47.0); Hemoglobin 8.3 g/dL (11.5-15.3); Mean Corpuscular HGB Conc 31.3 g/dL (30.0-36.0); Mean Corpuscular Hemoglobin 26.9 pg (28.0-34.0); Mean Corpuscular Volume 85.8 fl (81-99); Mean Platelet Volume 11.4 fL (7.4-10.4); Platelet Count 253 10^3/cmm (130-400); Red Blood Count 3.09 10^6/uL (4.1-5.3); Red Cell Distribution Width 18.3 % (12.1-15.1); White Blood Count 25.7 10^3/uL (4.0-10.0)
--- NOTE | 2022-09-17 00:40 | PC.NURSE ---
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
[2022-09-17 00:44] LABS: Slide Review Slide Review Perform
[2022-09-17 00:51] LABS: Influenza A by IFA negative (Negative); Influenza B by IFA negative (Negative); SARS Covid-2 Antigen negative (Negative)
[2022-09-17] MEDS: sodium chloride 0.9% 1,000 ML 999 ML IV (00:51)
[2022-09-17 00:55] LABS: INR 1.24 (0.8-1.2)
[2022-09-17 00:55] LABS: Add Urine Microscopic? YES; Bilirubin Urine Neg (Negative); Blood Urine 3+ (Negative); Glucose Urine UA Norm (Normal); Ketones Urine Negative (Negative); Leukocyte Esterase Urine 2+ (Negative); Nitrate Urine Negative (Negative); Protein Urine 1+ (Negative); Urine Appearance SL Hazy (CLEAR); Urine Color Yellow (Yellow); Urobilinogen Urine Norm (Negative); pH Urine 6 (5-7)
[2022-09-17 00:58] LABS: RBC Urine TOO NUMEROUS TO CNT /hpf (0-2)
[2022-09-17 00:59] LABS: Add Urine Culture? Yes; Bacteria Urine 3+ /hpf; WBC Urine TOO NUMEROUS TO CNT /hpf (0-5)
[2022-09-17 01:01] LABS: Troponin(5th) Baseline 82 ng/L (0-10)
[2022-09-17 01:02] LABS: Amphetamines Screen Urine Positive (Negative); Barbiturates Screen Urine Negative (Negative); Benzodiazepines Screen Urine Positive (Negative); Cocaine Screen Urine Negative (Negative); Opiate Screen Urine Negative (Negative); PCP Screen Urine Negative (Negative); THC Screen Urine Negative (Negative)
[2022-09-17 01:02] LABS: Lactate (Lactic Acid level) 0.6 mmol/L (0.5-2.2)
[2022-09-17 01:07] LABS: Alanine Aminotransferase 18 U/L (0-33); Albumin Level 3.8 g/dL (3.5-5.2); Alkaline Phosphatase 146 U/L (35-105); Anion Gap 28.3 (5-19); Aspartate Amino Transferase 9 U/L (0-32); Calcium 7.4 mg/dL (8.5-10.5); Chloride 103 mmol/L (98-107); Globulin 3.5 g/dL (1.3-4.6); Glomerular Filtration Rate 5.2 mL/min (90-130); Glucose 76 mg/dL (65-115); NT Pro B Type Natriuretic Pept 12483 pg/mL (0-125); Potassium 4.3 mmol/L (3.5-5.1); Sodium 131 mmol/L (136-145); Thyroid Stimulating Hormone 0.78 uIU/mL (0.27-4.20); Total Bilirubin 0.2 mg/dL (0.15-1.2); Total Protein 7.3 g/dL (6.6-8.7)
[2022-09-17] MEDS: piperacillin-tazobactam 3.375 GM in sodium chloride 0.9% (plus) 50 ML IV (01:12)
[2022-09-17 01:33] LABS: Alcohol Level < 10 mg/dL (0-10); Osmolality Calculated 319 mOsm/kg (285-295)
[2022-09-17 01:35] LABS: Blood Urea Nitrogen 149 mg/dL (6-20); Carbon Dioxide 4 mmol/L (22-29); Creatinine Clr Calc Pharmacy 8.3196
[2022-09-17] MEDS: vancomycin 1,000 MG in sodium chloride 0.9% 250 ML 250 MG IV (02:00)
--- NOTE | 2022-09-17 02:08 | ECG_ITS ---
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 Measurements Intervals [place] Rate: 93 P: 56 MT: 155 QRS: 16 QRSD: 110 T: 96 QT: 382 QTc: 477 Interpretive Statements SINUS RHYTHM POSSIBLE LATERAL MYOCARDIAL INFARCTION , OF INDETERMINATE AGE [30 ms Q WAVE IN I/aVL/V5/V6] Compared to ECG 09/17/2022 00:05:52 Myocardial infarct finding now present Sinus tachycardia no longer present T-wave abnormality no longer present Electronically Signed On 09-17-2022 20:45:03 BENEFITS CONSULTING ANALYST by Laura Dooley M.D. [email or web address]
[2022-09-17 02:18] LABS: Arterial Blood Gas Hematocrit 22.5 % (37-47); Base Excess ABG -24.7 mmol/L (-2.0-2.0); Blood Gas Sample Type Arterial; HCO3 ABG 3.8 mmol/L (22-26)
[2022-09-17 02:19] LABS: Blood Gas Sample Site Brachial, right
[2022-09-17 02:20] LABS: ABG PCO2 14.1 mmHg (35-45); ABG PH Result 7.04 (7.35-7.45)
[2022-09-17 02:49] LABS: Troponin 5 2HR 70.18 ng/L (0-10)
[2022-09-17 02:51] LABS: Troponin 5 2HR Delta -11.82 ABS# (0-10)
[2022-09-17] MEDS: sodium bicarbonate 150 MEQ in dextrose 5% 1,000 ML 100 MEQ IV (03:05)
[2022-09-17 03:30] LABS: Absolute Eosinophils 0.2 10^3/cmm (0.0-0.7); Absolute Neutrophil 23.4 10^3/cmm (1.4-6.5); Absolute Segmented Neutrophil 22.4 10/cmm (1.6-7.1); Anisocytosis 2+; Burr Cells 1+; Eosinophils 1 %; Lymphocytes 2 %; Lymphocytes Absolute 0.5 10^3/cmm (1.2-3.4); Monocytes Absolute 1.3 10^3/cmm (0.1-0.6); Ovalocytes 1+; Platelet Estimate Normal (Normal); Segmented Neutrophils 87 %; Total Cells Counted 100 (0-100)
[2022-09-18 12:47] LABS: Acinetobacter baumannii Not Detected (NOT DETECT); Bacteroides fragilis Not Detected (NOT DETECT); CTX-M Not Detected (NOT DETECT); Citrobacter Not Detected (NOT DETECT); Cronobacter sakazakii Not Detected (NOT DETECT); Enterobacter cloacae complex Not Detected (NOT DETECT); Enterobacter non cloacae Not Detected (NOT DETECT); Fusobacterium necrophorum Not Detected (NOT DETECT); Fusobacterium nucleatum Not Detected (NOT DETECT); Haemophilus influenzae Not Detected (NOT DETECT); IMP Resistance Gene Not Detected (NOT DETECT); KPC Resistance Gene Not Detected (NOT DETECT); Klebsiella pneumoniae group Not Detected (NOT DETECT); Morganella morganii Not Detected (NOT DETECT); NDM Resistance Gene Not Detected (NOT DETECT); Neisseria meningitidis Not Detected (NOT DETECT); OXA Resistance Gene Not Detected (NOT DETECT); Pan Candida Not Detected (NOT DETECT); Pan Gram-Positive Not Detected (NOT DETECT); Proteus mirabilis Not Detected (NOT DETECT); Pseudomonas aeruginosa Detected (NOT DETECT); Salmonella Not Detected (NOT DETECT); Serratia Not Detected (NOT DETECT); Serratia marcescens Not Detected (NOT DETECT); Stenotrophomonas maltophilia Not Detected (NOT DETECT); VIM Resistance Gene Not Detected (NOT DETECT)
== END 2022-09-17 04:31 | disposition short-term general hospital (02) ==
PROVIDERS: Emergency Provider Emergency Medicine; PCP Family Medicine
DX: R41.82 Altered mental status, unspecified (principal); F15.10 Other stimulant abuse, uncomplicated; N17.9 Acute kidney failure, unspecified; E87.20 Acidosis, unspecified; Z20.822 Contact with and (suspected) exposure to COVID-19; F17.210 Nicotine dependence, cigarettes, uncomplicated; Z85.3 Personal history of malignant neoplasm of breast; Z85.51 Personal history of malignant neoplasm of bladder; Z90.6 Acquired absence of other parts of urinary tract
CPT/HCPCS: 36600; 70450; 71045; 71250; 74176; 80053; 80306; 80307; 81001; 82803; 83605; 83880; 84443; 84484; 85007; 85025; 85610; 87040; 87077; 87086; 87150; 87186; 87205; 87426; 87804; 93005; 96365; 96366; 96367; 99285; J2543; J3370; J7030; J7050; J7070

== ENCOUNTER → 2023-03-20 11:44 | Outpatient (BNVA) | payer MEDICAID, SELFPAY | PROVIDERS: PCP Family Medicine; Visit Provider Nurse Practitioner Family | DX: E87.6 Hypokalemia (principal); C79.51 Secondary malignant neoplasm of bone; N18.4 Chronic kidney disease, stage 4 (severe) | CPT/HCPCS: 80053 ==

== ENCOUNTER 2023-04-01 21:10 | Inpatient (IN) | payer MEDICAID, SELFPAY ==
[2023-04-01] VITALS (8 sets, daily range): BP systolic 172–217; BP diastolic 108–118; PULSE 60–68; RESP 17–20; TEMP 36.7; O2SAT 90–94; BMI 22.8
--- NOTE | 2023-04-01 21:20 | ED_ITS ---
HPI - General Adult General: Chief complaint: General Medical Stated complaint: LEG PAIN Time Seen by Provider: 04/01/23 21:16 Source: patient and EMS Mode of arrival: EMS Limitations: no limitations History of Present Illness: 53-year-old female has a history of hypertension she is sent here from the senior living she had had a recent leg surgery and has been at the senior living states she has been dealing with hypertension since being there she was recently at [facility] and had her meds adjusted and states that tonight her blood pressure had increased again. She has no other complaints denies any chest pain denies any shortness of breath denies any pain anywhere Associated symptoms: Deny chest pain, dyspnea, headache(s), nausea, rash or vomiting Review of Systems Const: Denies: fever(s), chills, body aches or change in appetite Eyes: Denies: blurry vision or eye discomfort ENMT: Denies: throat pain or dental pain Card: Denies: chest pain Resp: Denies: dyspnea GI: Denies: abdominal pain, nausea, vomiting or diarrhea : Denies: dysuria Musc: Denies: neck pain or back pain Skin/Breast: Denies: rash Neuro: Denies: headache(s) Psych: Denies: depression Sim/Lymph: Denies: easy bruising All/Imm: Denies: urticaria PFSH ED PFSH: Medical History History of breast cancer Surgical History (Updated 04/02/23 @ 01:35 by Sujit Stafford MD) History of partial mastectomy of right breast History of urostomy Social History Smoking and tobacco status: current every day smoker cigarettes [ Other c igarette details: uses vape] Alcohol intake: never Physical Exam Const: COMMON NORMALS: no acute distress, patient oriented x3 and healthy appearing HENMT: COMMON NORMALS: normocephalic and atraumatic HEAD & SCALP: normocephalic and atraumatic Eye: COMMON NORMALS: Equal, round and reactive pupils present and EOMs intact bilaterally PUPIL: Yes Equal, round and reactive pupils present Neck/C-Spine: COMMON NORMALS: full ROM and supple Chest: COMMONS NORMALS: normal inspection of the chest and normal palpation of entire chest wall Resp: COMMON NORMALS: normal respiratory effort, No retractions, No use of accessory muscles and clear to auscultation bilaterally AUSCULTATION: clear to auscultation bilaterally Cardio: COMMON NORMALS: regular rate, regular rhythm and No murmurs present (Cardio) RATE: regular rate RHYTHM: regular rhythm GI: COMMON NORMALS: Normal to inspection, nondistended, normoactive bowel sounds present, Soft to palpation, non-tender and no masses PALPATION: Yes Soft to palpation Extremity: COMMON NORMALS: normal to inspection and full ROM Neuro: COMMON NORMALS: patient oriented x3, moves all extremities and no focal motor deficits Psych: COMMON NORMALS: mental status grossly normal, Normal thought process present and cooperative THOUGHT PROCESS: Normal thought process present Skin: COMMON NORMALS: no rashes or lesions noted and no wounds GENERAL SKIN EXAM: no rashes or lesions noted Course Vital Signs: Vital signs: Vital Signs Temperature 98.0 F 04/01/23 21:11 Pulse Rate 62 04/02/23 01:23 Respiratory Rate 16 04/02/23 01:23 Blood Pressure 195/109 04/02/23 01:23 Pulse Oximetry 92 04/02/23 01:23 Oxygen Delivery Me thod Room Air 04/02/23 01:16 MDM - General Adult Medical Decision Making Patient presents here with hypertensive urgency given multiple IV meds blood pressures continue to be high she has had extensive history including cancer patient seen by Dr. Rojo will start on nitro drip and admit to the ICU Medical Records I reviewed the patient's medical records. Lab Data I reviewed the patient's lab results. 04/01/23 21:18 04/01/23 21:18 Radiology Impressions Chest X-Ray 04/01/23 23:31 IMPRESSION: 1. Stable right Mediport catheter. 2. Borderline to mild cardiomegaly. 3. Hyperaerated lungs consistent with COPD . Laboratory Results WBC 9.7 10^3/uL (4.0-10.0) 04/01/23 21:18 RBC 3.82 10^6/uL (4.1-5.3) L 04/01/23 21:18 Hgb 10.8 g/dL (11.5-15.3) L 04/01/23 21:18 Hct 33.0 % (37.0-47.0) L 04/01/23 21:18 MCV 86.4 fl (81-99) 04/01/23 21:18 MCH 28.3 pg (28.0-34.0) 04/01/23 21:18 MCHC 32.7 g/dL (30.0-36.0) 04/01/23 21:18 RDW 18.4 % (12.1-15.1) H 04/01/23 21:18 Plt Count 192 10^3/cmm (130-400) 04/01/23 21:18 MPV 9.7 fL (7.4-10.4) 04/01/23 21:18 Neut % (Auto) 82.9 % 04/01/23 21:18 Lymph % (Auto) 6.3 % 04/01/23 21:18 Bowie % (Auto) 5.0 % 04/01/23 21:18 Eos % (Auto) 0.9 % 04/01/23 21:18 Baso % (Auto) 0.5 % 04/01/23 21:18 Neut # (Auto) 8.01 10^3/uL (1.8-7.7) H 04/01/23 21:18 Lymph # (Auto) 0.6 10^3/uL (0.8-4.8) L 04/01/23 21:18 Bowie # (Auto) 0.5 10^3/uL (0.2-0.9) 04/01/23 21:18 Eos # (Auto) 0.1 10^3/uL (0.0-0.8) 04/01/23 21:18 Baso # (Auto) 0.1 10^3/uL (0.0-0.1) 04/01/23:18 Nucleated RBC % (auto) 0 % 04/01/23 21:18 Nucleated RBCs # 0.0 /100WBC 04/01/23 21:18 Sodium 132 mmol/L (136-145) L 04/01/23 21:18 Potassium 3.7 mmol/L (3.5-5.1) 04/01/23 21:18 Chloride 93 mmol/L (98-107) L 04/01/23 21:18 Carbon Dioxide 27 mmol/L (22-29) 04/01/23 21:18 Anion Gap 15.7 (5-19) 04/01/23 21:18 BUN 56 mg/dL (6-20) H 04/01/23 21:18 Creatinine 2.5 mg/dL (0.5-0.9) H 04/01/23 21:18 GFR Calculation 20.0 mL/min (90-130) L 04/01/23 21:18 Glucose 98 mg/dL (65-115) 04/01/23 21:18 Calculated Osmolality 289 mOsm/kg (285-295) 04/01/23 21:18 Calcium 9.6 mg/dL (8.5-10.5) 04/01/23 21:18 Troponin T Baseline 70 ng/L (0-10) H 04/01/23 21:18 Troponin T 120 Minute 68.83 ng/L (0-10) H 04/01/23 23:50 Delta Troponin T -1.17 ABS# (0-10) L 04/01/23 23:50 EKG Data EKG 1: I personally reviewed and interpreted this EKG as follows: EKG interpretation date: 04/01/23 EKG interpretation time: 21:21 Interpretation: nsr hr [address] or t wave abnormalities qrs 114 qtc 469 Computer generated interpretation: Chest X-Ray 04/01/23 23:31 IMPRESSION: 1. Stable right Mediport catheter. 2. Borderline to mild cardiomegaly. 3. Hyperaerated lungs consistent with COPD . Critical Care Time Critical Care Time: Critical Care Time: Yes Total Critical Care Time: 55 Attestation: The high probability of a clinically significant, sudden or life threatening deterioration of the patient's htn system(s) required my full and direct attention, intervention and personal management. The critical care time is as shown. This time is in addition to time spent performing any reported procedures but includes the following: [x] Data and vital sign review and interpretation [x] Patient assessment, examination and intervention [x] Documentation [x] Medication orders and management Discharge Plan Discharge Patient Disposition: Admitted As Inpatient Admit Provider: uSjit Stafford Clinical Impression: Hypertensive urgency Condition: Stable Discharge Diet: Advance as tolerated Discharge Activity: Resume usual activity Coding Level of Care Code ED Septic Tank Setter for Chg Kimani
[2023-04-01 21:27] LABS: Basophils # 0.1 10^3/uL (0.0-0.1); Basophils % 0.5 %; Eosinophils # 0.1 10^3/uL (0.0-0.8); Eosinophils % 0.9 %; Hemoglobin 10.8 g/dL (11.5-15.3); Lymphocytes # 0.6 10^3/uL (0.8-4.8); Lymphocytes % 6.3 %; Mean Corpuscular HGB Conc 32.7 g/dL (30.0-36.0); Mean Corpuscular Hemoglobin 28.3 pg (28.0-34.0); Mean Corpuscular Volume 86.4 fl (81-99); Mean Platelet Volume 9.7 fL (7.4-10.4); Monocytes # 0.5 10^3/uL (0.2-0.9); Neutrophils # 8.01 10^3/uL (1.8-7.7); Neutrophils % 82.9 %; Nucleated Red Blood Cells % 0 %; Platelet Count 192 10^3/cmm (130-400); Red Blood Count 3.82 10^6/uL (4.1-5.3); Red Cell Distribution Width 18.4 % (12.1-15.1); White Blood Count 9.7 10^3/uL (4.0-10.0)
[2023-04-01] MEDS: hyDRALAzine 20 mg/mL INJ 1 mL 10 MG IVP ×2 (21:29→22:16)
[2023-04-01 21:50] LABS: Anion Gap 15.7 (5-19); Blood Urea Nitrogen 56 mg/dL (6-20); Calcium 9.6 mg/dL (8.5-10.5); Carbon Dioxide 27 mmol/L (22-29); Chloride 93 mmol/L (98-107); Glucose 98 mg/dL (65-115); Osmolality Calculated 289 mOsm/kg (285-295); Potassium 3.7 mmol/L (3.5-5.1); Sodium 132 mmol/L (136-145)
[2023-04-01] MEDS: sodium chloride 0.9% 500 ML 999 ML IV (22:16)
[2023-04-01] MEDS: morphine 4 mg/mL SDV 1 mL IVP (22:35)
[2023-04-01] MEDS: ondansetron 2 mg/ML SDV 2 mL 4 MG IVP (22:35)
[2023-04-01] MEDS: hyDRALAzine 20 mg/mL INJ 1 mL IVP ×2 (22:38→23:31)
[2023-04-01] MEDS: cloNIDine 0.1 mg Tablet PO (22:39)
[2023-04-01] MEDS: cloNIDine 0.1 mg Tablet 0.2 MG PO (23:16)
--- NOTE | 2023-04-01 23:30 | ECG_ITS ---
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
--- NOTE | 2023-04-01 23:31 | XRR_ITS ---
PROCEDURE INFORMATION: Exam: XR Chest Exam date and time: 04/01/2023 11:34 PM Age: 53 years old Clinical indication: Other: HTN TECHNIQUE: Imaging protocol: Radiologic exam of the chest. Views: 1 view. COMPARISON: [place] [id number] 09/17/2022 1:46 AM FINDINGS: Tubes, catheters and devices: Stable right Mediport catheter. Lungs: Hyperaerated lungs consistent with COPD . Pleural spaces: Unremarkable. No pleural effusion. No pneumothorax. Heart/Mediastinum: Borderline to mild cardiomegaly. Bones/joints: Unremarkable. XR/XR chest 1V portable [id number] IMPRESSION: 1. Stable right Mediport catheter. 2. Borderline to mild cardiomegaly. 3. Hyperaerated lungs consistent with COPD .
[2023-04-02] VITALS (98 sets, daily range): BP systolic 118–202; BP diastolic 83–127; PULSE 44–71; RESP 6–23; TEMP 36.2–36.7; O2SAT 80–100
[2023-04-02 00:21] LABS: Troponin(5th) Baseline 70 ng/L (0-10)
[2023-04-02 00:21] LABS: Troponin 5 2HR 68.83 ng/L (0-10)
[2023-04-02 00:22] LABS: Troponin 5 2HR Delta -1.17 ABS# (0-10)
--- NOTE | 2023-04-02 00:59 | CTR_ITS ---
PROCEDURE INFORMATION: Exam: CT Head Without Contrast Exam date and time: 04/02/2023 1:26 AM Age: 53 years old Clinical indication: Stroke-like symptoms; Altered mental status/memory loss; Additional info: Decreased loc. partial mastectomy. TECHNIQUE: Imaging protocol: Computed tomography of the head without contrast. Radiation optimization: All CT scans at this facility use at least one of these dose optimization techniques: automated exposure control; mA and/or kV adjustment per patient size (includes targeted exams where dose is matched to clinical indication); or iterative reconstruction. Other technique: STROKE PROTOCOL was implemented. REPORTING DATA: Count of CT and Cardiac NM exams in prior 12 months: This patient has received 2 known CTs and 0 known cardiac nuclear medicine studies in the 12 months prior to the current study. COMPARISON: CT head wo con* [id number] 09/17/2022 1:41 AM RADIATION DOSE METRICS: Total DLP (mGy-cm): 1167.02 FINDINGS: Brain: Mild cerebral atrophy and ischemic leukoencephalopathy. Cerebral ventricles: No ventriculomegaly. Paranasal sinuses: Visualized sinuses are unremarkable. No fluid levels. Mastoid air cells: Visualized mastoid air cells are well aerated. Bones/joints: Interval appearance of multiple lytic lesions throughout the calvarium consistent with multiple myeloma versus bone metastasis. Multiple additional lytic bone lesions which have broken through the inner table suggesting possible extradural soft tissue lesions. Soft tissues: 1.5 x 0.7 cm soft tissue mass extending into the right occipital scalp from lytic bone destruction, axial series 5, image 40. 1.4 x 0.9 cm soft tissue lesion extending into the left frontal scalp in the region of the lytic bone destruction. Axial series 5, image 30. Additional lytic bone destruction with soft tissue extension into the right forehead soft tissues, axial series 5, image 24. CT/CT head wo con* [id number] IMPRESSION: 1. Interval appearance of multiple lytic lesions throughout the calvarium consistent with multiple myeloma versus bone metastasis. 2. 1.5 x 0.7 cm soft tissue mass extending into the right occipital scalp from lytic bone destruction, axial series 5, image 40. 3. 1.4 x 0.9 cm soft tissue lesion extending into the left frontal scalp in the region of the lytic bone destruction. Axial series 5, image 30. 4. Additional lytic bone destruction with soft tissue extension into the right forehead soft tissues, axial series 5, image 24. 5. Multiple additional lytic bone lesions which have broken through the inner table suggesting possible extradural soft tissue lesions. 6. No acute intracranial findings. CT with contrast and MRI with contrast or more sensitive for detection of intracranial metastasis. ASSESSMENT: ASPECTS ([place] Stroke Program Early CT Score) is 10.
--- NOTE | 2023-04-02 01:14 | P.HP_ITS ---
Providers/Chief Complaint Admitting Physician: Sujit Stafford MD Primary Care Provider: Ortiz Clark DO Chief Complaint: LEG PAIN History of Present Illness Bee Manjarrez is a 53 year old female with history of breast cancer, bladder cancer, and concern for lytic lesion in the pelvis with recent hospitalization at [facility] for marked hypertension from March 25 through presenting from the retirement for evaluation of hypertension. Unfortunately records from [facility] are not available. In talking with the nurse from the nursing facility, patient requested to go to [facility] instead of [facility] where all of her health care has been given recently. There has been concern that she has metastatic bladder cancer. She recently had a hip fracture and repair. Her most recent hospital stay from March 25 through metoprolol was increased to 100 mg twice daily from 25 twice a day, nifedipine from 30 to 90 mg daily, Aldactone added, Bumex added, clonidine added, and hydralazine added. I am not for sure if she got any significant other work-up. There are no medications that appear to have been withdrawn from her nursing facility record. During this time patient has been relatively asymptomatic according to the nursing facility. She usually does not have any chest pain or shortness of breath. She does seem somewhat sluggish, especially in the emergency department currently. This is hard to delineate whether it is significant as she recently received from morphine. There is no history of any fever. She denies any headache, or vomiting. Secondary to concern of marked hypertension, likely hypertensive urgency and possible look encephalopathy from this nitroglycerin drip has been ordered to lower blood pressure approximately 20%, no lower than 160 systolic. Will also check CT head. Further evaluation in the ICU to include echocardiogram and renal artery duplex Review of Systems General: Reports: 10 or more systems reviewed and unremarkable except in HPI and below Card: Denies: chest pain Resp: Denies: dyspnea Medications/Allergies Home Medications Medication Instructions Recorded Confirmed Last Taken Type buspirone 30 mg tablet 30 mg PO BID #60 tabs 06/29/20 07/04/20 Unknown Rx lisinopril 5 mg tablet 5 mg PO DAILY #30 tabs 07/03/20 07/04/20 Unknown Rx cyclobenzaprine 10 mg tablet 10 mg PO DAILY PRN muscle spasm 11/13/20 Unknown R x #20 tabs trazodone 50 mg tablet See Rx Instructions PO .at HS PRN 12/05/21 Unknown Rx insomnia #45 tabs albuterol 90 mcg/actuation aerosol mcg inhalation 04/01/23 Unknown History inhaler apixaban 2.5 mg tablet 2.5 mg PO BID 04/01/23 04/01/23 Unknown History bumetanide 1 mg tablet 1 mg PO DAILY 04/01/23 04/01/23 Unknown History clonidine HCl 0.1 mg tablet mg PRN 04/01/23 Unknown History docusate sodium 100 mg tablet 100 mg PO BID 04/01/23 04/01/23 Unknown History hydralazine 50 mg tablet 50 mg PO TID 04/01/23 04/01/23 Unknown History metoprolol tartrate 100 mg tablet 100 mg PO BID 04/01/23 04/01/23 Unknown History morphine 30 mg tablet,extended 30 mg PO Q12H 04/01/23 04/01/23 Unknown History release nifedipine 90 mg tablet,extended 90 mg PO DAILY 04/01/23 04/01/23 Unknown History release ondansetron 8 mg disintegrating 8 mg PO Q8H PRN Nausea 04/01/23 04/01/23 Unknown History tablet oxycodone-acetaminophen 5 mg-325 1 tab PO Q4H PRN Pain 04/01/23 04/01/23 Unknown History mg tablet spironolactone 25 mg tablet 25 mg PO DAILY 04/01/23 04/01/23 Unknown History Allergies Allergy/AdvReac Type Severity Reaction Status Date / Time No Known Allergies Allergy Verified 04/01/23 21:20 PFSH Acute PFSH: Medical History (Updated 04/02/23 @ 01:43 by Sujit Stafford MD) Anemia Chronic renal failure History of breast cancer Tobacco dependency Surgical History (Updated 04/02/23 @ 01:35 by Sujit Stafford MD) History of partial mastectomy of right breast History of urostomy Social History Smoking and tobacco status: current every day smoker cigarettes [ Other cigarette details: uses vape] Alcohol intake: never Other PFSH information: Supplemental PFSH Information: I could not obtain a meaningful family history for the patient currently. Vitals/I&O/Wt Last Vital Signs Temp 98.0 F 04/01/23 21:11 Pulse 58 L 04/02/23 00:45 Resp 16 04/02/23 00:45 BP 194/113 04/02/23 00:45 Pulse Ox 93 04/02/23 00:45 O2 Del Method Room Air 04/02/23 00:45 04/01/23 04/01/23 04/02/23 14:59 22:59 06:59 Intake Total 500 / 500 Balance 500 / 500 Weight last 48 hrs Weight 68.039 kg Physical Exam Narrative: General exam demonstrates a white female, who opens her eyes and answers few questions but seems sleepy. HEENT: Pupils round. Left eye with esotropia. Oropharynx clear Neck is supple no lymphadenopathy thyromegaly Cardiovascular regular rate and rhythm, 2/6 systolic murmur Lungs few faint expiratory wheezes bilaterally Abdomen is soft with positive bowel sounds. No obvious organomegaly. Urostomy noted. exam is deferred Extremities no cyanosis clubbing or edema Skin no rash Neuro no obvious focal deficits, but patient somewhat sleepy, and seems confused regarding the state of her malignancy. Data 04/01/23 21:18 04/01/23 21:18 Other Labs: I have ordered liver function tests Troponin 70 with repeat of 68 Calcium normal Chest x-ray by my read demonstrates COPD, cardiomegaly, port. Head CT by my read demonstrates bony mets, awaiting final read EKG by my read demonstrates sinus bradycardia, normal axis, flipped T waves laterally, biphasic T in V1 While dictating this her records from [facility] returned, and they had done an echocardiogram demonstrating an EF of 50-50 provide percent, dilation of left atrium, right ventricular systolic pressure around 40, moderate aortic regurgitation, left ventricular hypertrophy. A renal artery duplex was also done demonstrating no renal artery stenosis. A&P Assessment and plan (1) Hypertensive urgency: Patient has hypertensive urgency There is concern of endorgan dysfunction with encephalopathy. Unfortunately her baseline is not completely known. Initiate nitroglycerin drip, titrate to approximately 20% blood pressure reduction. For her a systolic of around 160. As blood pressure becomes under better control consider adding long-acting nitrate in the form of Imdur Continue current doses of metoprolol, Bumex, Aldactone, nifedipine Consider increasing hydralazine doses Could consider addition of angiotensin receptor kalia or ADRI inhibitor Echocardiogram and renal artery duplex of already been done At this point I do not think it will likely be useful considering her widespread malignancy to evaluate for pheochromocytoma (2) Acute encephalopathy: Will try to figure out what her exact baseline is. Hopefully will be able to contact family or friends at some point. (3) Chronic renal failure: Baseline renal function close to normal Monitor BMP daily (4) Anemia: Continue to follow CBC, monitor CBC daily (5) Bladder cancer: Patient with evidence of widespread metastasis to bone Discharge planning to try to determine if she has follow-up for malignancy, or overall plan. There seems to be some confusion in regards to who is treating her cancer on evaluation of her old records at [facility]. Plan Tobacco dependency Chronic pain, currently getting morphine History of diastolic heart failure. She does not appear to be fluid overloaded currently. Likely COPD. DuoNeb as needed, budesonide twice daily Other medical problems as outlined in past medical history Full code currently Eliquis for DVT prophylaxis Attestations Medical Necessity Statement*: Will require greater than 2 midnight stay for evaluation and treatment of hypertensive urgency Critical Care Time: The high probability of a clinically significant, sudden or life threatening deterioration of the patient's [neurologic, vascular] system(s) required my full and direct attention, intervention and personal management. The critical care time is as shown. This time is in addition to time spent performing any reported procedures but includes the following: [x] Data and vital sign review and interpretation [x] Patient assessment, examination and intervention [x] Documentation [x] Medication orders and management Critical Care Time (min): 61 Coding Level of Care Code Critical Care >/= 30 minutes Critical care time (in minutes): 61 The high probability of a clinically significant, sudden or life threatening deterioration, as referenced in this documentation, required my full and direct attention, intervention and personal management. The critical care time shown is in addition to time spent performing any reported separately billable procedures and includes the following: [x] Data and vital sign review and interpretation [x ] Patient assessment, examination and intervention [x] Medication orders and management [x] Patient/Family updates as able [x] Care Coordination and Documentation. Diagnoses Hypertensive urgency I16.0 Acute encephalopathy G93.40 Chronic renal failure N18.9 Anemia D64.9 Bladder cancer C67.9
[2023-04-02] MEDS: nitroglycerin drip 50 MG/250 ML PREMIX 6 MG IV (01:15)
--- NOTE | 2023-04-02 01:30 | ECG_ITS ---
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 Measurements Intervals [place] Rate: 67 P: 59 DE: 153 QRS: 17 QRSD: 114 T: 112 QT: 454 QTc: 480 Interpretive Statements SINUS RHYTHM POSSIBLE LEFT ATRIAL ENLARGEMENT [-0.1mV P-WAVE IN V1/V2] LEFT VENTRICULAR HYPERTROPHY AND ST-T CHANGE [VOLTAGE CRITERIA PLUS ST/T ABNORMALITY] Compared to ECG 09/17/2022 02:17:18 Left ventricular hypertrophy now present ST (T wave) deviation now present Myocardial infarct finding no longer present Electronically Signed On 04-02-2023 10:22:08 CDT by Brenna Torres M.D. [email or web address]/store/NU/[id number] f
[2023-04-02 01:57] LABS: Alanine Aminotransferase 29 U/L (0-33); Alkaline Phosphatase 26 U/L (35-105); Aspartate Amino Transferase 24 U/L (0-32); Globulin 2.6 g/dL (1.3-4.6); Total Bilirubin 0.4 mg/dL (0.15-1.2); Total Protein 5.6 g/dL (6.6-8.7)
[2023-04-02] MEDS: morphine ER (12 HR) 30 mg tablet PO ×2 (02:46→14:08)
[2023-04-02 04:00] LABS: Basophils % 0.5 %; Eosinophils # 0.1 10^3/uL (0.0-0.8); Eosinophils % 1.3 %; Hematocrit 28.8 % (37.0-47.0); Hemoglobin 9.2 g/dL (11.5-15.3); Lymphocytes # 0.7 10^3/uL (0.8-4.8); Lymphocytes % 7.8 %; Mean Corpuscular HGB Conc 31.9 g/dL (30.0-36.0); Mean Corpuscular Hemoglobin 27.7 pg (28.0-34.0); Mean Corpuscular Volume 86.7 fl (81-99); Mean Platelet Volume 10.3 fL (7.4-10.4); Monocytes # 0.5 10^3/uL (0.2-0.9); Monocytes % 6.1 %; Neutrophils # 6.93 10^3/uL (1.8-7.7); Neutrophils % 80.2 %; Nucleated Red Blood Cells % 0 %; Platelet Count 190 10^3/cmm (130-400); Red Blood Count 3.32 10^6/uL (4.1-5.3); Red Cell Distribution Width 18.3 % (12.1-15.1); White Blood Count 8.6 10^3/uL (4.0-10.0)
[2023-04-02 04:26] LABS: Troponin 5 6HR 70.24 ng/L (0-10)
[2023-04-02 04:37] LABS: Troponin 5 6HR Delta 0.24 ng/L (0-12)
[2023-04-02 04:38] LABS: Alanine Aminotransferase 29 U/L (0-33); Alkaline Phosphatase 307 U/L (35-105); Anion Gap 14.4 (5-19); Aspartate Amino Transferase 22 U/L (0-32); Blood Urea Nitrogen 53 mg/dL (6-20); Calcium 9.1 mg/dL (8.5-10.5); Carbon Dioxide 27 mmol/L (22-29); Chloride 95 mmol/L (98-107); Globulin 1.9 g/dL (1.3-4.6); Glomerular Filtration Rate 19.1 mL/min (90-130); Glucose 101 mg/dL (65-115); Magnesium 1.9 mg/dL (1.7-2.3); Osmolality Calculated 291 mOsm/kg (285-295); Potassium 3.4 mmol/L (3.5-5.1); Sodium 133 mmol/L (136-145); Total Bilirubin 0.4 mg/dL (0.15-1.2); Total Protein 4.9 g/dL (6.6-8.7)
--- NOTE | 2023-04-02 05:30 | ECG_ITS ---
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 Measurements Intervals [place] Rate: 68 P: 50 [place]: 152 QRS: -11 QRSD: 105 T: 132 QT: 426 QTc: 456 Interpretive Statements SINUS RHYTHM LEFT VENTRICULAR HYPERTROPHY AND ST-T CHANGE [VOLTAGE CRITERIA PLUS ST/T ABNORMALITY] Compared to ECG 04/01/2023 23:38:12 Left ventricular hypertrophy now present ST (T wave) deviation now present Sinus bradycardia no longer present Myocardial infarct finding no longer present Electronically Signed On 04-02-2023 21:20:52 CDT by Laura Dooley M.D. [id number]
[2023-04-02] MEDS: acetaminophen 325 mg Tablet 650 MG PO (06:20)
--- NOTE | 2023-04-02 08:00 | PC.NURSE ---
Stoma bag to catheter drainage system. Stoma WNL.
[2023-04-02] MEDS: budesonide 0.5 mg/2 mL Neb INHALATION ×2 (08:30→21:44)
[2023-04-02] MEDS: ipratropium-albuterol 3 mL Neb INHALATION ×2 (08:30→21:44)
--- NOTE | 2023-04-02 08:44 | XRR_ITS ---
PROCEDURE INFORMATION: Exam: XR Osseous Survey; Complete Axial And Appendicular Skeleton Exam date and time: 04/02/2023 9:22 AM Age: 53 years old Clinical indication: Condition or disease; Prior surgery; Surgery date: 6+ months; Surgery type: Partial mast port hyst urostomy; Patient HX: HX of breast cancer, multiple myeloma TECHNIQUE: Imaging protocol: Radiological examination. Complete osseous survey. Axial and appendicular skeleton. COMPARISON: CR (CHEST, ) 04/01/2023 11:34 PM FINDINGS: Bones/joints: Multiple lytic lesions are seen within the calvarium. There is a suspected pathological comminuted displaced fracture of the right humeral head and neck. There is a suspected pathological fracture of the left mid femoral diaphysis. A compression screw and long intramedullary garo are seen in the left femur. There is an approximately 4 cm oval lytic lesion in the distal left tibia. There is a suspected lucency in the proximal right femoral diaphysis with scalloping of the endosteal margins. Remaining long bones are unremarkable. No abnormalities are seen in the spine, ribcage, or pelvis. Soft tissues: Unremarkable. XR/XR bone survey* [id number] IMPRESSION: Abnormal bone survey with findings described above.
[2023-04-02] MEDS: NIFEdipine ER (24 hr) 30 mg Tablet 90 MG PO (08:55)
[2023-04-02] MEDS: docusate sodium 100 mg Capsule PO ×2 (08:55→17:40)
[2023-04-02] MEDS: hyDRALAzine 50 mg Tablet PO ×3 (08:56→20:30)
[2023-04-02] MEDS: apixaban 5 mg Tablet 2.5 MG PO ×2 (08:56→17:40)
[2023-04-02] MEDS: metoprolol tartrate 50 mg Tablet 100 MG PO ×2 (08:56→17:40)
[2023-04-02] MEDS: pantoprazole DR 40 mg Tablet PO (08:56)
[2023-04-02] MEDS: cloNIDine 0.1 mg Tablet PO ×2 (08:58→17:40)
[2023-04-02 09:26] LABS: Ferritin 730 ng/mL (15-150); Iron 75 ug/dL (37-145); Percent Saturation 47.7 % (20-50); Total Iron Binding Capacity 157 mcg/dl; Unsaturated Iron Binding 82 ug/dL (112-347)
[2023-04-02 09:38] LABS: LAB Peripheral Smear Sent for Review
--- NOTE | 2023-04-02 12:23 | CTR_ITS ---
PROCEDURE INFORMATION: Exam: CT Chest Without Contrast; Diagnostic Exam date and time: 04/02/2023 1:38 PM Age: 53 years old Clinical indication: Other: Lymphadenoapthy; Prior surgery; Surgery date: 6+ months; Surgery type: Hip, ostomy, breast TECHNIQUE: Imaging protocol: Diagnostic computed tomography of the chest without contrast. Radiation optimization: All CT scans at this facility use at least one of these dose optimization techniques: automated exposure control; mA and/or kV adjustment per patient size (includes targeted exams where dose is matched to clinical indication); or iterative reconstruction. REPORTING DATA: Count of CT and Cardiac NM exams in prior 12 months: This patient has received 2 known CTs and 0 known cardiac nuclear medicine studies in the 12 months prior to the current study. COMPARISON: 1[place] [id number] 09/17/2022 1:46 AM 2. CR (CHEST, ) 04/01/2023 11:34 PM RADIATION DOSE METRICS: Total DLP (mGy-cm): 684.13 FINDINGS: Tubes, catheters and devices: Right chest port terminates in the SVC just above the superior cavoatrial junction. Lungs: Mild atelectasis associated with pleural effusions. No pulmonary mass. Pleural spaces: Small bilateral pleural effusions. No pneumothorax. Heart: Unremarkable. No cardiomegaly. No pericardial effusion. Coronary arteries: Mild coronary artery calcification. Lymph nodes: Mediastinal lymphadenopathy evidenced by right lower paratracheal lymph node measuring 1.3 cm on axial image 25 of series 3, previously 0.8 cm and subcarinal lymph node measuring 1.1 cm in the short axis, previously 0.6 cm. Asymmetric left lower neck masslike soft tissue fullness. Vasculature: Mild atherosclerotic calcification without aortic aneurysm. Bones/joints: Displaced and angulated pathologic fracture at the proximal right humerus. Destructive lytic lesion at the left acromion. Small nonaggressive lucent lesion at the inferior right scapula. Moderate C6 compression fracture in the setting of lytic lesion. Milder compression fracture of the T1 vertebral body in the setting of lytic lesion. Severe compression deformity of the T3 vertebral body. Expansile lucent lesion at the left T8 transverse process. Multifocal lytic lesions at the T10 vertebra. Lytic lesion at the anterior right T12 vertebral body. Soft tissues: Multiple right breast and axillary surgical clips. PROCEDURE INFORMATION: Exam: CT Abdomen And Pelvis Without Contrast Exam date and time: 04/02/2023 1:38 PM Age: 53 years old Clinical indication: Other: Lymphadenoapthy; Prior surgery; Surgery date: 6+ months; Surgery type: Hip, ostomy, breast TECHNIQUE: Imaging protocol: Computed tomography of the abdomen and pelvis without contrast. Radiation optimization: All CT scans at this facility use at least one of these dose optimization techniques: automated exposure control; mA and/or kV adjustment per patient size (includes targeted exams where dose is matched to clinical indication); or iterative reconstruction. REPORTING DATA: Count of CT and Cardiac NM exams in prior 12 months: This patient has received 2 known CTs and 0 known cardiac nuclear medicine studies in the 12 months prior to the current study. COMPARISON: [place] [id number] 09/17/2022 1:[address] abdomen pelvis wo con [id number] 11/19/2020 6:41 PM 3. CR XR bone survey* [id number] 04/02/2023 9:22 AM RADIATION DOSE METRICS: Total DLP (mGy-cm): 684.13 FINDINGS: Liver: Enlarged liver measuring 19.6 cm in craniocaudal dimension with numerous hypodense lesions. Gallbladder and bile ducts: Normal. No calcified stones. No ductal dilation. Pancreas: Fatty infiltration of the pancreas. Spleen: Normal. Adrenal glands: Mild bilateral adrenal gland thickening. Kidneys and ureters: Bilateral lobulated renal atrophy. Ureteroileal conduit. No calculi or hydronephrosis. Stomach and bowel: No bowel dilatation. Stable ureteral ileostomy changes. Mild colonic diverticulosis. Appendix: Normal. Intraperitoneal space: No free air, free fluid, or well-organized fluid collection. Vasculature: Moderate aortoiliac atherosclerotic calcification. Lymph nodes: Retroperitoneal lymphadenopathy with index left para-aortic lymph node measuring 4.7 x 3.4 cm on axial image 35 of series 9 and right iliac lymph node measuring 6.5 by 4.0 cm on axial image 50 of series 9. Urinary bladder: Prior cystectomy. Reproductive: The uterus is surgically absent. Bones/joints: Multifocal lucent lesions at the L2 and L3 vertebral bodies. Mild compression deformity of the L5 vertebral body in the setting of lytic lesion. Multiple additional lytic lesions throughout the sacrum, pelvis, and proximal femora. Partially visualized proximal left femoral nail and screw. Soft tissues: Stable appearance of right abdominal ostomy and small fat containing umbilical hernia. Diffuse body wall edema. CT/[place] [id number] IMPRESSION: 1. Small bilateral pleural effusions. 2. Multiple lytic lesions with right proximal humerus pathologic fracture, pathologic C6, T1, and T3 vertebral body compression fractures. Destructive left acromial lesion. Additional sites of involvement detailed above. 3. Mediastinal lymphadenopathy. Suspect left supraclavicular and cervical lymphadenopathy. 4. Constellation of findings most suspicious for metastatic disease or possibly multiple myeloma. IMPRESSION: 1. Hepatomegaly with numerous hypodense liver lesions suspicious for metastatic disease. 2. Retroperitoneal lymphadenopathy. Suspect malignancy. 3. Multiple osseous lytic lesions with mild compression deformity of the L5 vertebral body in keeping with metastatic disease or multiple myeloma. 4. Bilateral renal atrophy and cystectomy status post ureteroileal conduit. 5. Atherosclerosis.
--- NOTE | 2023-04-02 12:44 | CTR_ITS ---
PROCEDURE INFORMATION: Exam: CT Right Upper Extremity Without Contrast, Shoulder Exam date and time: 04/02/2023 1:42 PM Age: 53 years old Clinical indication: Pain; Shoulder; Right TECHNIQUE: Imaging protocol: Computed tomography of the right upper extremity without contrast. Exam focused on the shoulder. Radiation optimization: All CT scans at this facility use at least one of these dose optimization techniques: automated exposure control; mA and/or kV adjustment per patient size (includes targeted exams where dose is matched to clinical indication); or iterative reconstruction. REPORTING DATA: Count of CT and Cardiac NM exams in prior 12 months: This patient has received 2 known CTs and 0 known cardiac nuclear medicine studies in the 12 months prior to the current study. COMPARISON: 1. CR XR bone survey* [id number] 04/02/2023 9:[address] [place] [id number] 04/02/2023 1:[address] [place] [id number] 09/17/2022 1:46 AM RADIATION DOSE METRICS: Total DLP (mGy-cm): 263.43 FINDINGS: Bones/joints: Destructive expansile proximal right humerus lytic lesion with displaced angulated pathologic fracture involving the head and neck. Associated joint effusion and inferior subluxation of the humeral head with respect to the glenoid. Soft tissues: Normal. Other findings: For findings in the chest, please refer to the separately dictated chest CT report under a separate accession number. CT/CT shoulder RT wo con* [id number] IMPRESSION: Displaced angulated pathologic fracture involving the humeral head and neck from aggressive/destructive expansile lytic lesion concerning for metastatic disease or multiple myeloma.
--- NOTE | 2023-04-02 16:14 | PM.PN ---
Subjective Subjective: - Patient was examined multiple times throughout the morning -She tells me that she had a history of breast cancer, ER VA positive, HER2/eve positive, status postlumpectomy, she received chemotherapy, -She was also diagnosed with urothelial cancer, she had a cystectomy and diverting urostomy, at [facility] -She got chemotherapy through [facility] in [place] roughly 2 years ago, but she had to stop it as her mom was sick and she had to take care of her, at that time she was also receiving dialysis -So for roughly the last 2 years also she has not received any chemotherapy or dialysis -She tells me that since then she has been functioning at home, by herself, taking care of herself, -When 1 day, roughly in early February, she started developing pain in her left lower extremity, and she suddenly felt a pop -She was diagnosed with a pathologic femur fracture at [facility], and had surgery -I reviewed the records, and she had gamma nailing, -Her biopsy came back positive for urothelial cancer, metastatic -She was also hospitalized for hypertensive urgency, acute renal failure, metastatic bone disease -She had hypertensive emergency at that time, she also had acute on chronic CHF exacerbation, hyponatremia, CKD stage IV, intractable cancer related pain, anemia chronic disease, -She was then sent to long-term facility, for which she has been there for roughly about a week -She was readmitted at [facility] for altered mental status -She tells me that she since her left femur surgery she does describe an incident in which she fell on her right shoulder -She indeed does have a pathologic fracture of her right shoulder, but really does not complain of any pain -I had extensive discussion with orthopedic team about her right shoulder pathologic fracture, for now they recommended a CT of the right shoulder and conservative management, further discussion based upon CT scan findings -I done a CT scan abdomen pelvis, it seems as if she has diffuse metastatic lesions in her spine, with evidence of compression fracture, she also has lesions in the liver, she also has mediastinal lymphadenopathy, concerning for metastatic disease -I have gone over these findings with Dr. Smith, he recommended for her to have next generation sequencing, and to follow-up, through outpatient clinic -Was reexamined, her granddaughter is at bedside -I discussed findings as above, I am concerned for diffusely metastatic urothelial cancer, and now her poor performance status, she continues to have episodes of hypertensive emergency, they are difficult to control, and with the renal failure it looks like her creatinine is roughly at baseline compared to her lab work from [facility] but I do not know what her kidney function was before she went to [place], but it seems as if her kidney function during her hospitalization is not in the month of February was anywhere between 1.8-2.6, -We will have to discuss with nephrology service -She will reexamined in the evening time, she continues to be on the nitroglycerin drip, we will have to tailor her blood pressure medications, watch her kidney function -she tells me that she does not want to , she wants to pursue treatment for her bladder cancer Vitals/I&O/Wt Last Vital Signs Temp 97.1 F L 04/02/23 07:45 Pulse 53 L 04/02/23 15:15 Resp 13 04/02/23 15:15 BP 160/105 04/02/23 15:15 Pulse Ox 95 04/02/23 15:15 O2 Del Method Nasal Cannula 04/02/23 15:15 O2 Flow Rate 2 04/02/23 15:15 04/02/23 04/02/23 04/02/23 06:59 14:59 22:59 Intake Total 527.50 / 527.50 1399.70 / 1399.70 Output Total 40 / 40 Balance 487.50 / 487.50 1399.70 / 1399.70 Weight last 48 hrs Weight 60.645 kg Weight 68.039 kg Physical Exam Const: COMMON NORMALS: no acute distress and patient oriented x3 Cardio: COMMON NORMALS: regular rate, regular rhythm, S1 normal heart sound present and S2 normal heart sound present RATE: regular rate RHYTHM: regular rhythm HEART SOUNDS: S1 normal heart sound present and S2 normal heart sound present GI: COMMON NORMALS: Normal to inspection, nondistended, normoactive bowel sounds present and non-tender OTHER: Diverting urostomy in place Extremity: COMMON NORMALS: no pedal edema Neuro: COMMON NORMALS: patient oriented x3 Psych: COMMON NORMALS: mental status grossly normal Data 04/02/23 03:29 04/02/23 03:29 A&P Assessment and plan (1) Hypertensive urgency: (2) Acute encephalopathy: (3) Chronic renal failure: (4) Anemia: (5) Bladder cancer: (6) Urothelial cancer: (7) Cancer, metastatic to bone: (8) Humerus head fracture: (9) Pathologic fracture of femur: (10) Pathological fracture of right humerus with delayed healing: (11) Protein calorie malnutrition: (12) Physical deconditioning: (13) Metastasis to liver: (14) Mediastinal lymphadenopathy: (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: (16) Retroperitoneal lymphadenopathy: (17) Hx of total cystectomy: (18) Closed compression fracture of body of lumbar vertebra: (19) NSTEMI (non-ST elevated myocardial infarction): (20) Intractable pain: Plan Hypertensive urgency -This is patient's second hospitalization in the last week for hypertensive urgency -Last hospitalization was at [facility] -Currently on nitro drip -Continue clonidine, hydralazine, nifedipine, metoprolol, spironolactone -Wean as tolerated -Requires ICU admission as she is on nitro drip Acute encephalopathy -Still has cognitive slowing -But is alert and oriented to person, to place, not to time -We will consider head MRI based on clinical progress Head CT shows multiple lytic lesions throughout the calvarium 1. ? Interval appearance of multiple lytic lesions throughout the calvarium consistent with multiple myeloma versus bone metastasis. 2. ? 1.5 x 0.7 cm soft tissue mass extending into the right occipital scalp from lytic bone destruction, axial series 5, image 40. 3. ? 1.4 x 0.9 cm soft tissue lesion extending into the left frontal scalp in the region of the lytic bone destruction. Axial series 5, image 30. 4. ? Additional lytic bone destruction with soft tissue extension into the right forehead soft tissues, axial series 5, image 24. 5. ? Multiple additional lytic bone lesions which have broken through the inner table suggesting possible extradural soft tissue lesions. 6. ? No acute intracranial findings. CT with contrast and MRI with contrast or more sensitive for detection of intracranial metastasis. CKD stage IV -From records from [facility], her creatinine ranges from 1.8-2.7 -She does report a history of dialysis, through her right [facility]ip[facility], roughly 2 years ago when she used to receive chemotherapy -Consult nephrology -She might need dialysis for blood pressure control NSTEMI -Likely type II, supply demand ischemia, from hypertensive urgency -No chest pain complaints -We will monitor Metastatic urothelial cancer -Status post cystectomy, ileal conduit -She was receiving chemotherapy and dialysis to [facility] roughly 2 years ago but had to stop due to an illness in her mother for which she had to help take care of her -Biopsy results from her left femur, from [facility] show that she has metastatic urothelial cancer -Now metastatic to bone, with pathologic fractures, compression deformities, metastasis to the liver -We will have her follow-up with Dr. Smith as outpatient, Protein calorie malnutrition, consult dietary Physical deconditioning, PT OT, right shoulder in a sling Right humeral head fracture Displaced angulated pathologic fracture involving the humeral head and neck from aggressive/destructive expansile lytic lesion concerning for metastatic disease or multiple myeloma. -Currently in a sling -Discussed with orthopedic service, medical management, CT -Patient wants to pursue treatments, will potentially have to discuss with oncology orthopedic service at [place] Multiple osseous lytic lesions with mild compression deformity of the L5 vertebral body in keeping with metastatic disease or multiple myeloma. 2. ? Multiple lytic lesions with right proximal humerus pathologic fracture, pathologic C6, T1, and T3 vertebral body compression fractures. Destructive left acromial lesion. Additional sites of involvement detailed above. -No back pain complaints -We will monitor Has evidence of liver metastasis, retroperitoneal and mediastinal lymphadenopathy 1. ? Hepatomegaly with numerous hypodense liver lesions suspicious for metastatic disease. 2. ? Retroperitoneal lymphadenopathy. Suspect malignancy. 3. ? Mediastinal lymphadenopathy. Suspect left supraclavicular and cervical lymphadenopathy. ? Full code currently Eliquis for DVT prophylaxis Attestations Medical Necessity Statement*: Patient requires hospitalization, inpatient, greater than 2 midnights, for hypertensive urgency remains on nitro glycerin drip, in the intensive care unit, acute encephalopathy, metastatic urethral cancer with acute right humeral head fracture, multiple compression fractures, evidence of metastatic disease, acute renal failure, physical deconditioning, protein calorie malnutrition, Coding Level of Care Code Critical Care >/= 30 minutes Critical care time (in minutes): 60 The high probability of a clinically significant, sudden or life threatening deterioration, as referenced in this documentation, required my full and direct attention, intervention and personal management. The critical care time shown is in addition to time spent performing any reported separately billable procedures and includes the following: [x] Data and vital sign review and interpretation [x] Patient assessment, examination and intervention [x] Medication orders and management [x] Patient/Family updates as able [x] Care Coordination and Documentation. Diagnoses Hypertensive urgency I16.0 Acute encephalopathy G93.40 Chronic renal failure N18.9 Anemia D64.9 Bladder cancer C67.9 Urothelial cancer C68.9 Cancer, metastatic to bone C79.51 Humerus head fracture S42.293A Pathologic fracture of femur M84.453A Pathological fracture of right humerus with delayed healing M84.421G Protein calorie malnutrition E46 Physical deconditioning R53.81 Metastasis to liver C78.7 Mediastinal lymphadenopathy R59.0 Cancer of left acromial process C40.02 Retroperitoneal lymphadenopathy R59.0 Hx of total cystectomy Z90.6 Closed compression fracture of body of lumbar vertebra S32.000A NSTEMI (non-ST elevated myocardial infarction) I21.4 Intractable pain R52
[2023-04-02] MEDS: spironolactone 25 mg Tablet PO (17:40)
[2023-04-02] MEDS: nitroglycerin drip 50 MG/250 ML PREMIX 9 MG IV (18:45)
--- NOTE | 2023-04-02 19:17 | PC.NURSE ---
Shift summary: Pt has rested in bed throughout the shift. She has been to xray and CT today, she has tolerated both fairly well. Pathological fracture on right humoral head noted, so now pt has shoulder immobilizer in place. She is less drowsy later in the day. She does not complain about pain. She remains on Nitro gtt, now down to 30mcg/min. her heart rate has been 47-66 this shift, Sinus. She Has ate adequately. She really likes Sprite, chicken broth, chocolate milk and ice cream. She has stated multiple times today she does not want to . Her Granddaughter was in to visit today. Family is suppose to gather tomorrow and speak with Dr Gomes about her condition and plan of care. Urinary stoma red and intact. 425ml of foul smellng urine noted. No BM noted.
[2023-04-02] MEDS: oxyCODONE-APAP 5-325 mg Tablet 1 TAB PO (20:33)
--- NOTE | 2023-04-02 21:55 | P.CONIM_ITS ---
Providers/Reason For Consult Consulting Physician/Specialty*: [facility]/Nephrology Reason for Consult*: CKD hYPERTENSIVE URGENCY Attending Physician: Josias Gomes MD Primary Care Provider: Ortiz Clark DO History of Present Illness History of Present Illness Bee Manjarrez is a 53 year old female With past medical history of breast cancer and urothelial cancer which is metastatic, history of hypertension was recently admitted to the hospital at [place] for malignant hypertension. Her medications were adjusted and was discharged . She was sent back to the ED due to altered mental status and elevated blood pressure.Patient reports that she was not taking any blood pressure medications currently at home. Blood pressures in the ED were 190s to 200s systolic 1 teens diastolic. Patient was started on nitroglycerin drip and is transferred to ICU. Currently blood pressures improved, continues to be on nitro drip and oral meds being titrated. Also she has a history of CKD with a creatinine in the 2 range usually. She did have prior ESTEFANIA's in the past. Renal ultrasound pending, UA is negative for protein and negative for blood. Review of Systems Narrative: Other ROS negative Medications/Allergies Home Medications Medication Instructions Recorded Confirmed Last Taken Type apixaban 2.5 mg tablet 2.5 mg PO BID 04/01/23 04/02/23 Unknown History bumetanide 1 mg tablet 1 mg PO DAILY 04/01/23 04/01/23 Unknown History clonidine HCl 0.1 mg tablet 0.1 mg PO Q1H PRN Blood Pressure 04/01/23 04/02/23 Unknown History docusate sodium 100 mg tablet 100 mg PO BID 04/01/23 04/02/23 Unknown History hydralazine 50 mg tablet 50 mg PO TID 04/01/23 04/02/23 Unknown History metoprolol tartrate 100 mg tablet 100 mg PO BID 04/01/23 04/02/23 Unknown History morphine 30 mg tablet,extended 30 mg PO Q12H 04/01/23 04/02/23 Unknown History release nifedipine 90 mg tablet,extended 90 mg PO DAILY 04/01/23 04/02/23 Unknown History release ondansetron 8 mg disintegrating 8 mg PO Q8H PRN Nausea 04/01/23 04/02/23 Unknown History tablet oxycodone-acetaminophen 5 mg-325 1 tab PO Q4H PRN Pain 04/01/23 04/02/23 Unknown History mg tablet spironolactone 25 mg tablet 25 mg PO DAILY 04/01/23 04/02/23 Unknown History acetaminophen 325 mg tablet 650 mg PO Q4H PRN Pain 04/02/23 04/02/23 Unknown History albuterol sulfate 90 mcg/actuation 2 puff inhalation Q6H PRN 04/02/23 04/02/23 Unknown History aerosol inhaler Shortness Of Breath Or Wheezing Allergies Allergy/AdvReac Type Severity Reaction Status Date / Time No Known Allergies Allergy Verified 04/01/23 21:20 Current Medications Generic Name Dose Route Start Last Admin Trade Name Freq PRN Reason Stop Dose Admin Acetaminophen 650 mg 04/02/23 01:47 04/02/23 06:20 Acetaminophen 325 Mg Tablet PO 650 mg Q6H PRN Administration MILD PAIN Albuterol/Ipratropium 3 ml 04/02/23 01:47 04/02/23 21:44 Ipratropium-Albuterol 3 Ml Neb INHALATION 3 ml Q6H PRN Administration SHORTNESS OF BREATH Apixaban 2.5 mg 04/02/23 09:00 04/02/23 17:40 Apixaban 5 Mg Tablet PO 2.5 mg BID MARY Administration Budesonide 0.5 mg 04/02/23 08:00 04/02/23 21:44 Budesonide 0.5 Mg/2 Ml Neb INHALATION 0.5 mg BID.RESPIRATORY MARY Administration Clonidine HCl 0.1 mg 04/02/23 09:00 04/02/23 17:40 Clonidine 0.1 Mg Tablet PO 0.1 mg BID MARY Administration Docusate Sodium 100 mg 04/02/23 09:00 04/02/23 17:40 Docusate Sodium 100 Mg Capsule PO 100 mg BID MARY Administration Hydralazine HCl 50 mg 04/02/23 09:00 04/02/23 20:30 Hydralazine 50 Mg Tablet PO 50 mg TID MARY Administration Nitroglycerin/Dextrose 50 mg in 250 mls @ 0 mls/hr 04/02/23 01:00 04/02/23 18:45 Nitroglycerin Drip IV 30 mcg/min .Q0M MARY 9 mls/hr Administration Protocol Per Protocol Metoprolol Tartrate 100 mg 04/02/23 09:00 04/02/23 17:40 Metoprolol Tartrate 50 Mg Tablet PO 100 mg BID MARY Administration Morphine Sulfate 30 mg 04/02/23 01:47 04/02/23 14:08 Morphine Er (12 Hr) 30 Mg Tablet PO 30 mg Q12H MARY Administration Nifedipine 90 mg 04/02/23 09:00 04/02/23 08:55 Nifedipine Er (24 Hr) 30 Mg Tablet PO 90 mg DAILY MARY Administration Oxycodone/Acetaminophen 1 tab 04/02/23 01:47 04/02/23 20:33 Oxycodone-Apap 5-325 Mg Tablet PO 1 tab Q4H PRN Administration Pain Pantoprazole Sodium 40 mg 04/02/23 09:00 04/02/23 08:[address] 40 Mg Tablet PO 40 mg DAILY MARY Administration Spironolactone 25 mg 04/02/23 16:15 04/02/23 17:40 Spironolactone 25 Mg Tablet PO 25 mg DAILY MARY Administration PFSH Acute PFSH: Medical History (Updated 04/02/23 @ 17:23 by Joisas Gomes MD) Anemia Chronic renal failure Depressed History of breast cancer Tobacco dependency Surgical History (Updated 04/02/23 @ 17:23 by Josias Gomes MD) History of partial mastectomy of right breast History of urostomy Social History Smoking and tobacco status: current every day smoker cigarettes [ Other cigarette details: uses vape] Alcohol intake: never Vitals/I&O/Wt Last Vital Signs Temp 97.1 F L 04/02/23 07:45 Pulse 50 L 04/02/23 20:00 Resp 18 04/02/23 20:33 BP 118/93 04/02/23 19:00 Pulse Ox 98 04/02/23 20:33 O2 Del Method Nasal Cannula 04/02/23 20:00 O2 Flow Rate 2 04/02/23 20:00 04/02/23 04/02/23 04/02/23 06:59 14:59 22:59 Intake Total 527.50 / 527.50 1399.70 / 1399.70 472.8 / 1872.50 Output Total 40 / 40 425 / 425 Balance 487.50 / 487.50 1399.70 / 1399.70 47.8 / 1447.50 Weight last 48 hrs Weight 60.645 kg Weight 68.039 kg Physical Exam Narrative: Awake alert, no acute distress, on nitroglycerin drip, On room air HEENT Respiratory rate and rhythm per report Clear to auscultation per report No pedal edema Data 04/02/23 03:29 04/02/23 03:29 A&P Assessment and plan (1) Hypertensive urgency: (2) Chronic renal failure: Plan 1. Chronic kidney disease stage III: Baseline creatinine is in the 2 range, creatinine is currently at 2.6. 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 No proteinuria no hematuria on UA. Renal ultrasound pending. Continue to monitor. Arrange nephrology follow-up at discharge No indication for starting [employer] currently. 2. Hypertensive urgency: Unclear if patient was compliant with BP meds. Reports that she is not taking any BP meds at home. She presented with a blood pressure of 200 systolic and 1 teens diastolic and currently on nitro drip. She is on metoprolol 100 twice daily hydralazine 100mg 3 times daily and nifedipine extended release 90 mg daily, clonidine is 6.2 twice daily, Aldactone 25 g daily and Cardura added today. -We will do further work-up as has refractory HTN -We will check Doppler renal ultrasound also check cortisol, renin and aldosterone levels, check catecholamine levels -Check urine drug screen - add lasix 40 mg IV bid -If creatinine remains stable, could consider adding low-dose ADRI inhibitor 3. History of CHF: Order echo, has elevated BNP 4. History of metastatic malignancy Patient evaluated using audiovisual cart. Time spent 40 minutes Consult Attestations Medical Necessity Statement: per medicine Coding Level of Care Code Acute Code for Chg Fwd Diagnoses Hypertensive urgency I16.0 Chronic renal failure N18.9
[2023-04-02 22:18] LABS: Add Urine Microscopic? YES; Bilirubin Urine Neg (Negative); Blood Urine Neg (Negative); Glucose Urine UA Norm (Normal); Ketones Urine Negative (Negative); Leukocyte Esterase Urine 2+ (Negative); Nitrate Urine Negative (Negative); Protein Urine Neg (Negative); RBC Urine 0-4 /hpf (0-2); Sulfosalicylic Acid Urine Positive (Negative); Urine Appearance SL Hazy (CLEAR); Urine Color Yellow (Yellow); Urobilinogen Urine Neg (Negative); pH Urine 9 (5-7)
[2023-04-02 22:19] LABS: Add Urine Culture? Yes; Amorphous Sediment Urine 2+ /hpf; Bacteria Urine 1+ /hpf
[2023-04-03] VITALS (103 sets, daily range): BP systolic 109–199; BP diastolic 70–136; PULSE 48–68; RESP 6–21; TEMP 36.2–36.7; O2SAT 85–97
[2023-04-03] MEDS: morphine ER (12 HR) 30 mg tablet PO ×2 (01:09→13:16)
[2023-04-03 04:19] LABS: Basophils % 0.6 %; Eosinophils # 0.1 10^3/uL (0.0-0.8); Hemoglobin 9.6 g/dL (11.5-15.3); Lymphocytes # 0.7 10^3/uL (0.8-4.8); Mean Corpuscular Hemoglobin 28.2 pg (28.0-34.0); Mean Corpuscular Volume 88.2 fl (81-99); Mean Platelet Volume 10.4 fL (7.4-10.4); Monocytes # 0.3 10^3/uL (0.2-0.9); Monocytes % 4.7 %; Neutrophils # 5.73 10^3/uL (1.8-7.7); Neutrophils % 80.7 %; Nucleated Red Blood Cells % 0 %; Platelet Count 170 10^3/cmm (130-400); Red Cell Distribution Width 18.2 % (12.1-15.1); White Blood Count 7.1 10^3/uL (4.0-10.0)
[2023-04-03 04:35] LABS: INR 1.05 (0.8-1.2)
[2023-04-03 04:51] LABS: Alanine Aminotransferase 24 U/L (0-33); Albumin Level 3.2 g/dL (3.5-5.2); Alkaline Phosphatase 297 U/L (35-105); Anion Gap 17.9 (5-19); Aspartate Amino Transferase 17 U/L (0-32); Blood Urea Nitrogen 56 mg/dL (6-20); C Reactive Protein 31.5 mg/L (0.0-4.9); Calcium 8.7 mg/dL (8.5-10.5); Carbon Dioxide 25 mmol/L (22-29); Chloride 92 mmol/L (98-107); Glomerular Filtration Rate 18.3 mL/min (90-130); Glucose 123 mg/dL (65-115); Magnesium 1.8 mg/dL (1.7-2.3); Osmolality Calculated 289 mOsm/kg (285-295); Phosphorus 5.9 mg/dL (2.5-4.5); Potassium 3.9 mmol/L (3.5-5.1); Sodium 131 mmol/L (136-145); Total Bilirubin 0.3 mg/dL (0.15-1.2); Total Protein 5.2 g/dL (6.6-8.7)
[2023-04-03 05:02] LABS: Procalcitonin 0.68 ng/mL (0-0.5)
[2023-04-03 05:14] LABS: Creatine Phosphokinase 22 U/L (26-192)
--- NOTE | 2023-04-03 08:08 | USCV_ITS ---
Bee Manjarrez Age: 53 Gender: F : 1970 Exam Date: 04/03/2023 08:38 Ordering Phys: Josias Gomes MD Technologist: Jaylen Ricks Exam Location: [facility] [place] Indication: htn Aortic Velocity @ SMA (cm/s) RIGHT KIDNEY LEFT KIDNEY Velocity (cm/s) Velocity (cm/s) Sys/Strauss Sys/Strauss Resistive Index Resistive Index 140.0 / 27.7 0.80 Proximal Renal Artery 74.0 / 22.9 0.69 63.3 / 10.1 0.84 Mid Renal Artery 75.6 / 27.6 0.64 53.1 / 13.1 0.75 Distal Renal Artery 72.5 / 20.5 0.72 60.3 / 10.7 0.82 Hilar 66.2 / 24.4 0.63 46.0 / 11.3 0.75 Upper Pole 71.7 / 14.2 0.80 49.5 / 11.9 0.76 Mid Pole 74.8 / 18.1 0.76 69.2 / 11.3 0.84 Lower Pole 85.8 / 29.1 0.66 1.40 Renal Aortic Ratio 0.70 Accleration Index (cm/sec2) 1485.0 Hilar 656.00 0 2388.0 Upper Pole 808.00 0 2671.0 Mid Pole 940.00 0 763.00 Lower Pole 2148.0 0 110.9 Kidney Length (mm) 110.0 FINDINGS Mild renal atropy. Limited visualization of the kidneys. Multiple liver metastatic sites. No evidence of abdominal aortic aneurysm. There is no evidence of hemodynamically significant right renal artery stenosis. There is no evidence of hemodynamically significant left renal artery stenosis. CONCLUSIONS No sonographic evidence of renal aortic stenosis or aneurysm. Dr. Danika Lozada DO (Electronically Signed) Final Date: 03 April 2023 12:53 S
[2023-04-03] MEDS: apixaban 5 mg Tablet 2.5 MG PO ×2 (08:20→17:00)
[2023-04-03] MEDS: NIFEdipine ER (24 hr) 30 mg Tablet 90 MG PO (08:21)
[2023-04-03] MEDS: hyDRALAzine 50 mg Tablet 100 MG PO ×3 (08:21→20:14)
[2023-04-03] MEDS: cloNIDine 0.1 mg Tablet 0.2 MG PO ×2 (08:21→17:00)
[2023-04-03] MEDS: spironolactone 25 mg Tablet PO (08:21)
[2023-04-03] MEDS: pantoprazole DR 40 mg Tablet PO (08:22)
[2023-04-03] MEDS: metoprolol tartrate 50 mg Tablet 100 MG PO ×2 (08:22→17:01)
[2023-04-03] MEDS: docusate sodium 100 mg Capsule PO ×2 (08:22→17:01)
[2023-04-03] MEDS: doxazosin 1 mg Tablet PO (08:27)
[2023-04-03] MEDS: ipratropium-albuterol 3 mL Neb INHALATION ×2 (09:34→20:04)
[2023-04-03] MEDS: budesonide 0.5 mg/2 mL Neb INHALATION ×2 (09:34→20:04)
[2023-04-03] MEDS: FUROsemide 10 mg/mL SDV 4mL 40 MG IVP ×2 (10:20→21:47)
[2023-04-03] MEDS: oxyCODONE-APAP 5-325 mg Tablet 1 TAB PO ×2 (11:02→20:14)
[2023-04-03 11:29] LABS: KAPPA LIGHT CHAIN, FREE, SERUM 54.1 mg/L (3.3-19.4); KAPPA/LAMBDA LIGHT CHAINS FREE 1.23 (0.26-1.65); LAMBDA LIGHT CHAIN, FREE, SERU 43.9 mg/L (5.7-26.3)
[2023-04-03 11:55] LABS: ALBUMIN 2.5 g/dL (3.8-4.8); ALPHA 1 GLOBULIN 0.6 g/dL (0.2-0.3); ALPHA 2 GLOBULIN 0.7 g/dL (0.5-0.9); BETA 1 GLOBULIN 0.3 g/dL (0.4-0.6); BETA 2 GLOBULIN 0.3 g/dL (0.2-0.5); GAMMA GLOBULIN 0.6 g/dL (0.8-1.7)
--- NOTE | 2023-04-03 12:17 | USCV_ITS ---
Bee Manjarrze Age: 53 Gender: F : 1970 Exam Date: 04/03/2023 13:45 Ordering Phys: Josias Gomes MD Technologist: DEVORA [place] [facility] [place]ication: RT LEG PAIN HISTORY: Lower extremity pain. PROCEDURES: Venous duplex imaging was performed in bilateral lower extremities. The following venous structures were evaluated: common femoral vein, profunda vein, proximal portion of the greater saphenous vein, superficial femoral vein, and the popliteal vein. In addition, the posterior tibial and peroneal trunk were evaluated. Serial compression, augmentation maneuvers, and spectral Doppler flow evaluation were performed. FINDINGS: No evidence of DVT seen in any vessel visualized at this time. CONCLUSIONS No evidence of right lower extremity DVT. No evidence of left lower extremity DVT. Trent Bruce MD (Electronically Signed) Final Date: 03 April 2023 14:41 S
--- NOTE | 2023-04-03 15:48 | PM.PN ---
Subjective Subjective: - Patient was examined multiple times throughout the morning -Early she was examined, she complains of right lower extremity pain, especially under her thigh, she denies a history of DVTs she is on Eliquis -She continues to have resistant hypertension remains on nitro drip, -Which were titrating, monitoring her blood pressures, but blood pressure still 180s over 110 -Her clonidine dose was increased, I started her on Cardura she was given Lasix -Spoke to nephrology, the concern is that she might have a secondary reason for resistant hypertension, urine catecholamines ordered, renal aldosterone level, renal artery ultrasound -Had a family meeting with patient's family, her nieces, and her fianc? -She tells me that she wants to continue to live, she wants to continue to fight, she was walking 2 weeks ago -She was able to get up with physical therapy here, she tells me that she wants to proceed with treatment for her cancer -Her family is worried about her risk of further fractures, risk of falls, they are also worried about her elevated blood pressures -I discussed her evidence of metastatic urothelial cancer, discussed her performance status especially given her right shoulder fracture, I am discussing with physicians at [facility] for surgical evaluation, currently her kidney function is stable, there wondering how long she has to live -I advised him that our goal is to try to improve her blood pressure so that she can be discharged in the hospital I am going to have her follow-up with Dr. Smith as outpatient -For her right shoulder will have to get a surgical consultation from specialist, at [facility], -They voiced understanding, all questions answered I am-also getting the records from [facility] in [place], and from [facility] Vitals/I&O/Wt Last Vital Signs Temp 97.2 F L 04/03/23 04:00 Pulse 60 04/03/23 14:00 Resp 14 04/03/23 14:00 BP 125/83 04/03/23 14:00 Pulse Ox 93 04/03/23 14:00 O2 Del Method Nasal Cannula 04/03/23 09:34 O2 Flow Rate 2 04/03/23 09:34 04/03/23 04/03/23 04/03/23 06:59 14:59 22:59 Intake Total 404.35 / 2499.35 240 / 240 Output Total 500 / 1275 Balance -95.65 / 1224.35 240 / 240 Weight last 48 hrs Weight 61.689 kg Weight 60.645 kg Weight 68.039 kg Physical Exam Const: COMMON NORMALS: no acute distress and patient oriented x3 Resp: COMMON NORMALS: normal respiratory effort, No retractions, No use of accessory muscles and clear to auscultation bilaterally AUSCULTATION: clear to auscultation bilaterally Cardio: COMMON NORMALS: regular rate, regular rhythm, S1 normal heart sound present and S2 normal heart sound present RATE: regular rate RHYTHM: regular rhythm HEART SOUNDS: S1 normal heart sound present and S2 normal heart sound present GI: COMMON NORMALS: Normal to inspection, nondistended, normoactive bowel sounds present and non-tender Extremity: COMMON NORMALS: no pedal edema NARRATIVE EXTREMITY EXAM: Right shoulder in a sling Neuro: COMMON NORMALS: patient oriented x3 Psych: COMMON NORMALS: mental status grossly normal Data 04/03/23 04:05 04/03/23 04:05 A&P Assessment and plan (1) Hypertensive urgency: (2) Acute encephalopathy: (3) Chronic renal failure: (4) Anemia: (5) Bladder cancer: (6) Urothelial cancer: (7) Cancer, metastatic to bone: (8) Humerus head fracture: (9) Pathologic fracture of femur: (10) Pathological fracture of right humerus with delayed healing: (11) Protein calorie malnutrition: (12) Physical deconditioning: (13) Metastasis to liver: (14) Mediastinal lymphadenopathy: (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: (16) Retroperitoneal lymphadenopathy: (17) Hx of total cystectomy: (18) Closed compression fracture of body of lumbar vertebra: (19) NSTEMI (non-ST elevated myocardial infarction): (20) Intractable pain: (21) Resistant hypertension: Plan Hypertensive urgency -This is patient's second hospitalization in the last week for hypertensive urgency -We will look for secondary causes for resistant hypertension including renin aldosterone level urine catecholamines, renal artery ultrasound -Last hospitalization was at [facility] -Currently on nitro drip -Continue clonidine, hydralazine, nifedipine, metoprolol, spironolactone, Lasix, Cardura -Wean as tolerated -Requires ICU admission as she is on nitro drip, requires blood pressure monitoring, titration Acute encephalopathy -Overall back to baseline -But is alert and oriented to person, to place, not to time -We will consider head MRI based on clinical progress Head CT shows multiple lytic lesions throughout the calvarium 1. ? Interval appearance of multiple lytic lesions throughout the calvarium consistent with multiple myeloma versus bone metastasis. 2. ? 1.5 x 0.7 cm soft tissue mass extending into the right occipital scalp from lytic bone destruction, axial series 5, image 40. 3. ? 1.4 x 0.9 cm soft tissue lesion extending into the left frontal scalp in the region of the lytic bone destruction. Axial series 5, image 30. 4. ? Additional lytic bone destruction with soft tissue extension into the right forehead soft tissues, axial series 5, image 24. 5. ? Multiple additional lytic bone lesions which have broken through the inner table suggesting possible extradural soft tissue lesions. 6. ? No acute intracranial findings. CT with contrast and MRI with contrast or more sensitive for detection of intracranial metastasis. CKD stage IV -From records from [facility], her creatinine ranges from 1.8-2.7 -She does report a history of dialysis, through her right Mediport, roughly 2 years ago when she used to receive chemotherapy -Consult nephrology NSTEMI -Likely type II, supply demand ischemia, from hypertensive urgency -No chest pain complaints -We will monitor Metastatic urothelial cancer -Status post cystectomy, ileal conduit -She was receiving chemotherapy and dialysis to [facility] roughly 2 years ago but had to stop due to an illness in her mother for which she had to help take care of her -Biopsy results from her left femur, from [facility] show that she has metastatic urothelial cancer -Now metastatic to bone, with pathologic fractures, compression deformities, metastasis to the liver -We will have her follow-up with Dr. Smith as outpatient, Protein calorie malnutrition, consult dietary Physical deconditioning, PT OT, right shoulder in a sling Right humeral head fracture Displaced angulated pathologic fracture involving the humeral head and neck from aggressive/destructive expansile lytic lesion concerning for metastatic disease or multiple myeloma. -Currently in a sling -Discussed with orthopedic service, medical management, CT -Patient wants to pursue treatments, will potentially have to discuss with oncology orthopedic service at [facility] Multiple osseous lytic lesions with mild compression deformity of the L5 vertebral body in keeping with metastatic disease or multiple myeloma. 2. ? Multiple lytic lesions with right proximal humerus pathologic fracture, pathologic C6, T1, and T3 vertebral body compression fractures. Destructive left acromial lesion. Additional sites of involvement detailed above. -No back pain complaints -We will monitor -No back pain complaints -Can consider back brace if she becomes symptomatic Has evidence of liver metastasis, retroperitoneal and mediastinal lymphadenopathy 1. ? Hepatomegaly with numerous hypodense liver lesions suspicious for metastatic disease. 2. ? Retroperitoneal lymphadenopathy. Suspect malignancy. 3. ? Mediastinal lymphadenopathy. Suspect left supraclavicular and cervical lymphadenopathy. ? Full code currently Eliquis for DVT prophylaxis Plan for today add Cardura increase clonidine dose continue nitro drip ordered renal artery ultrasound, urine catecholamines, renin aldosterone, PT OT, speak to nephrology, spoke to [facility], Attestations Medical Necessity Statement*: Patient requires hospitalization for hypertensive urgency Coding Level of Care Code Critical Care >/= 30 minutes Critical care time (in minutes): 45 The high probability of a clinically significant, sudden or life threatening deterioration, as referenced in this documentation, required my full and direct attention, intervention and personal management. The critical care time shown is in addition to time spent performing any reported separately billable procedures and includes the following: [x] Data and vital sign review and interpretation [x] Patient assessment, examination and intervention [x] Medication orders and management [x] Patient/Family updates as able [x] Care Coordination and Documentation. Diagnoses Hypertensive urgency I16.0 Acute encephalopathy G93.40 Chronic renal failure N18.9 Anemia D64.9 Bladder cancer C67.9 Urothelial cancer C68.9 Cancer, metastatic to bone C79.51 Humerus head fracture S42.293A Pathologic fracture of femur M84.453A Pathological fracture of right humerus with delayed healing M84.421G Protein calorie malnutrition E46 Physical deconditioning R53.81 Metastasis to liver C78.7 Mediastinal lymphadenopathy R59.0 Cancer of left acromial process C40.02 Retroperitoneal lymphadenopathy R59.0 Hx of total cystectomy Z90.6 Closed compression fracture of body of lumbar vertebra S32.000A NSTEMI (non-ST elevated myocardial infarction) I21.4 Intractable pain R52 Resistant hypertension I10
[2023-04-03 16:15] LABS: Creatinine, Random Urine 68 mg/dL (20-275); Protein, Total, Random 957 mg/dL (5-24); Protein/Creatinine Ratio 14.074 (0.024-0.184); Protein/Creatinine Ratio 14074 mg/g creat (24-184)
--- NOTE | 2023-04-03 19:27 | PM.PN ---
Subjective Subjective: no new complaints Medications: Reviewed: Yes Vitals/I&O/Wt Last Vital Signs Temp 98.0 F 04/07/23 10:42 Pulse 56 L 04/07/23 11:00 Resp 14 04/07/23 11:00 BP 139/82 04/07/23 12:00 Pulse Ox 98 04/07/23 11:00 O2 Del Method Room Air 04/07/23 11:00 O2 Flow Rate 2 04/07/23 10:00 Physical Exam Const: COMMON NORMALS: no acute distress and alert Neuro: SENSORIUM/ORIENTATION: Yes alert Data 04/07/23 03:00 04/07/23 11:00 A&P Assessment and plan (1) Hypertensive urgency: (2) Chronic renal failure: Plan 1. Chronic kidney disease stage III: Baseline creatinine is in the 2 range, creatinine is currently at 2.6. 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 No proteinuria no hematuria on UA. Renal ultrasound pending. Continue to monitor. 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 2. Hypertensive urgency: Unclear if patient was compliant with BP meds. Reports that she is not taking any BP meds at home. She presented with a blood pressure of 200 systolic and 110's diastolic. s/p nitro drip. She is on metoprolol 100 twice daily hydralazine 100mg 3 times daily and nifedipine extended release 90 mg daily, clonidine is 0.2 twice daily, Aldactone 25 g daily and Cardura 1 mg BID -We will do further work-up as pt has refractory HTN -No REJI on Doppler renal ultrasound -check cortisol, renin and aldosterone levels, check catecholamine levels -Check urine drug screen - added lasix 40 mg IV bid 3. History of CHF: Order echo, has elevated BNP 4. History of metastatic malignancy Patient evaluated using audiovisual cart. Time spent 40 minutes Attestations Medical Necessity Statement*: per medicine Coding Level of Care Code Acute Code for Chg Fwd Diagnoses Hypertensive urgency I16.0 Chronic renal failure N18.9
[2023-04-04] VITALS (82 sets, daily range): BP systolic 105–197; BP diastolic 67–115; PULSE 55–83; RESP 6–24; TEMP 36.5–36.9; O2SAT 86–98
[2023-04-04] MEDS: morphine ER (12 HR) 30 mg tablet PO ×2 (01:21→14:17)
[2023-04-04 05:02] LABS: Basophils # 0.1 10^3/uL (0.0-0.1); Basophils % 0.5 %; Eosinophils # 0.1 10^3/uL (0.0-0.8); Eosinophils % 0.7 %; Hematocrit 30.1 % (37.0-47.0); Hemoglobin 9.2 g/dL (11.5-15.3); Lymphocytes # 0.7 10^3/uL (0.8-4.8); Lymphocytes % 7.4 %; Mean Corpuscular HGB Conc 30.6 g/dL (30.0-36.0); Mean Corpuscular Hemoglobin 27.8 pg (28.0-34.0); Mean Corpuscular Volume 90.9 fl (81-99); Mean Platelet Volume 10.9 fL (7.4-10.4); Monocytes # 0.5 10^3/uL (0.2-0.9); Monocytes % 4.9 %; Neutrophils # 8.03 10^3/uL (1.8-7.7); Neutrophils % 84.2 %; Nucleated Red Blood Cells % 0 %; Platelet Count 148 10^3/cmm (130-400); Red Blood Count 3.31 10^6/uL (4.1-5.3); Red Cell Distribution Width 18.2 % (12.1-15.1); White Blood Count 9.6 10^3/uL (4.0-10.0)
[2023-04-04 05:26] LABS: Magnesium 1.7 mg/dL (1.7-2.3)
[2023-04-04 05:28] LABS: Blood Urea Nitrogen 56 mg/dL (6-20); Calcium 8.5 mg/dL (8.5-10.5); Carbon Dioxide 22 mmol/L (22-29); Chloride 93 mmol/L (98-107); Glomerular Filtration Rate 18.3 mL/min (90-130); Glucose 118 mg/dL (65-115); Osmolality Calculated 289 mOsm/kg (285-295); Sodium 131 mmol/L (136-145)
[2023-04-04 05:34] LABS: Anion Gap 19.2 (5-19); Potassium 3.2 mmol/L (3.5-5.1)
[2023-04-04] MEDS: potassium chloride ER 20 mEq Tablet 40 MEQ PO (08:12)
[2023-04-04] MEDS: doxazosin 1 mg Tablet PO (08:12)
[2023-04-04] MEDS: NIFEdipine ER (24 hr) 30 mg Tablet 90 MG PO (08:12)
[2023-04-04] MEDS: spironolactone 25 mg Tablet PO (08:13)
[2023-04-04] MEDS: pantoprazole DR 40 mg Tablet PO (08:13)
[2023-04-04] MEDS: apixaban 5 mg Tablet 2.5 MG PO ×2 (08:13→17:23)
[2023-04-04] MEDS: cloNIDine 0.1 mg Tablet 0.3 MG PO ×2 (08:13→17:22)
[2023-04-04] MEDS: docusate sodium 100 mg Capsule PO ×2 (08:13→17:22)
[2023-04-04] MEDS: hyDRALAzine 50 mg Tablet 100 MG PO ×3 (08:14→21:18)
[2023-04-04] MEDS: ipratropium-albuterol 3 mL Neb INHALATION ×2 (08:57→20:12)
[2023-04-04] MEDS: budesonide 0.5 mg/2 mL Neb INHALATION ×2 (08:57→20:12)
[2023-04-04] MEDS: FUROsemide 10 mg/mL SDV 4mL 40 MG IVP ×2 (09:13→21:19)
[2023-04-04 09:15] LABS: Albumin,Urine Random 50 %; Alpha-1-Globulins Urine Random 13 %; Alpha-2-Globulins Urine Random 9 %; Beta-Globulin,Urine Random 17 %; Gamma Globulin,Urine Random 12 %
[2023-04-04 09:45] LABS: Amphetamines Screen Urine Negative (Negative); Barbiturates Screen Urine Negative (Negative); Benzodiazepines Screen Urine Negative (Negative); Cocaine Screen Urine Negative (Negative); Opiate Screen Urine Positive (Negative); PCP Screen Urine Negative (Negative); THC Screen Urine Negative (Negative)
--- NOTE | 2023-04-04 13:47 | P.PN_ITS ---
Vitals/I&O/Wt Last Vital Signs Temp 98.0 F 04/04/23 04:00 Pulse 70 04/04/23 12:00 Resp 12 04/04/23 12:00 BP 177/102 04/04/23 12:00 Pulse Ox 91 04/04/23 12:00 O2 Del Method Nasal Cannula 04/04/23 08:50 O2 Flow Rate 2.5 04/04/23 08:50 04/03/23 04/04/23 04/04/23 22:59 06:59 14:59 Intake Total 500.72 / 740.72 250 / 990.72 600 / 600 Output Total 1550 / 1550 1200 / 2750 Balance -1049.28 / -809.28 -950 / -1759.28 600 / 600 Weight last 48 hrs Weight 61.507 kg Weight 61.689 kg Physical Exam Const: COMMON NORMALS: no acute distress and patient oriented x3 Resp: COMMON NORMALS: normal respiratory effort, No retractions, No use of accessory muscles and clear to auscultation bilaterally AUSCULTATION: clear to auscultation bilaterally Cardio: COMMON NORMALS: regular rate, regular rhythm, S1 normal heart sound present and S2 normal heart sound present RATE: regular rate RHYTHM: regular rhythm HEART SOUNDS: S1 normal heart sound present and S2 normal heart sound present GI: COMMON NORMALS: Normal to inspection, nondistended, normoactive bowel sounds present and non-tender Extremity: COMMON NORMALS: no pedal edema Neuro: COMMON NORMALS: patient oriented x3 Psych: COMMON NORMALS: mental status grossly normal Data 04/04/23 04:48 04/04/23 04:48 Micro: Microbiology 04/02/23 21:15 Urine Culture - Preliminary Urine,Clean Catch Gram Negative Rods A&P Assessment and plan (1) Hypertensive urgency: (2) Acute encephalopathy: (3) Chronic renal failure: (4) Anemia: (5) Bladder cancer: (6) Urothelial cancer: (7) Cancer, metastatic to bone: (8) Humerus head fracture: (9) Pathologic fracture of femur: (10) Pathological fracture of right humerus with delayed healing: (11) Protein calorie malnutrition: (12) Physical deconditioning: (13) Metastasis to liver: (14) Mediastinal lymphadenopathy: (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: (16) Retroperitoneal lymphadenopathy: (17) Hx of total cystectomy: (18) Closed compression fracture of body of lumbar vertebra: (19) NSTEMI (non-ST elevated myocardial infarction): (20) Intractable pain: (21) Resistant hypertension: Plan Hypertensive urgency -This is patient's second hospitalization in the last week for hypertensive urgency -We will look for secondary causes for resistant hypertension including renin aldosterone level urine catecholamines so far pending -renal artery ultrasound so far no significant ultrasound evidence of renal artery stenosis -Last hospitalization was at [facility] -Currently off nitro drip -Continue clonidine, hydralazine, nifedipine, metoprolol, spironolactone, Lasix, Cardura -Wean as tolerated -We will move out of ICU Acute encephalopathy -Overall back to baseline -But is alert and oriented to person, to place, not to time -We will consider head MRI based on clinical progress Head CT shows multiple lytic lesions throughout the calvarium 1. ? Interval appearance of multiple lytic lesions throughout the calvarium consistent with multiple myeloma versus bone metastasis. 2. ? 1.5 x 0.7 cm soft tissue mass extending into the right occipital scalp from lytic bone destruction, axial series 5, image 40. 3. ? 1.4 x 0.9 cm soft tissue lesion extending into the left frontal scalp in the region of the lytic bone destruction. Axial series 5, image 30. 4. ? Additional lytic bone destruction with soft tissue extension into the right forehead soft tissues, axial series 5, image 24. 5. ? Multiple additional lytic bone lesions which have broken through the inner table suggesting possible extradural soft tissue lesions. 6. ? No acute intracranial findings. CT with contrast and MRI with contrast or more sensitive for detection of intracranial metastasis. CKD stage IV -From records from [facility], her creatinine ranges from 1.8-2.7 -She does report a history of dialysis, through her right Mediport, roughly 2 years ago when she used to receive chemotherapy -Consult nephrology NSTEMI -Likely type II, supply demand ischemia, from hypertensive urgency -No chest pain complaints -We will monitor Metastatic urothelial cancer -Status post cystectomy, ileal conduit -She was receiving chemotherapy and dialysis to [facility] roughly 2 years ago but had to stop due to an illness in her mother for which she had to help take care of her -Biopsy results from her left femur, from [facility] show that she has metastatic urothelial cancer -Now metastatic to bone, with pathologic fractures, compression deformities, metastasis to the liver -We will have her follow-up with Dr. Smith as outpatient, Protein calorie malnutrition, consult dietary Physical deconditioning, PT OT, right shoulder in a sling Left femur fracture, status post pinning at [facility] Right humeral head fracture Displaced angulated pathologic fracture involving the humeral head and neck from aggressive/destructive expansile lytic lesion concerning for metastatic disease or multiple myeloma. -Currently in a sling -Discussed with orthopedic service, medical management, CT -Patient wants to pursue treatments, will potentially have to discuss with spoke to Dr. Walker, at [facility], he is agreed to see the patient as outpatient, for surgical consultation, I have had nursing staff fax over her information for possible consultation next week in office Multiple osseous lytic lesions with mild compression deformity of the L5 vertebral body in keeping with metastatic disease or multiple myeloma. 2. ? Multiple lytic lesions with right proximal humerus pathologic fracture, pathologic C6, T1, and T3 vertebral body compression fractures. Destructive left acromial lesion. Additional sites of involvement detailed above. -No back pain complaints -We will monitor -No back pain complaints -TLSO brace Has evidence of liver metastasis, retroperitoneal and mediastinal lymphadenopathy 1. ? Hepatomegaly with numerous hypodense liver lesions suspicious for metastatic disease. 2. ? Retroperitoneal lymphadenopathy. Suspect malignancy. 3. ? Mediastinal lymphadenopathy. Suspect left supraclavicular and cervical lymphadenopathy. ? Full code currently Eliquis for DVT prophylaxis Plan for today increase clonidine 0.3 twice daily, add Imdur, I looked at records from [facility], seems as if she was on immunotherapy back in August 2021, [place], awaiting her further records, spoke to oncology about her improving performance status, plan for today up out of bed, monitor for lightheadedness and dizziness risk of falls as she is on multiple blood pressure medications, spoke to patient, spoke to nursing staff Attestations Medical Necessity Statement*: Patient requires hospitalization for hypertensive urgency, Diagnoses Hypertensive urgency I16.0 Acute encephalopathy G93.40 Chronic renal failure N18.9 Anemia D64.9 Bladder cancer C67.9 Urothelial cancer C68.9 Cancer, metastatic to bone C79.51 Humerus head fracture S42.293A Pathologic fracture of femur M84.453A Pathological fracture of right humerus with delayed healing M84.421G Protein calorie malnutrition E46 Physical deconditioning R53.81 Metastasis to liver C78.7 Mediastinal lymphadenopathy R59.0 Cancer of left acromial process C40.02 Retroperitoneal lymphadenopathy R59.0 Hx of total cystectomy Z90.6 Closed compression fracture of body of lumbar vertebra S32.000A NSTEMI (non-ST elevated myocardial infarction) I21.4 Intractable pain R52 Resistant hypertension I10
[2023-04-04] MEDS: isosorbide mononitrate ER 60 mg Tablet PO (14:17)
--- NOTE | 2023-04-04 15:38 | P.PN_ITS ---
Subjective Subjective: BP still high off Nitro drip Medications: Reviewed: Yes Vitals/I&O/Wt Last Vital Signs Temp 98.0 F 04/04/23 04:00 Pulse 73 04/04/23 14:30 Resp 13 04/04/23 14:30 BP 197/105 04/04/23 14:30 Pulse Ox 91 04/04/23 14:30 O2 Del Method Nasal Cannula 04/04/23 08:50 O2 Flow Rate 2.5 04/04/23 08:50 04/04/23 04/04/23 04/04/23 06:59 14:59 22:59 Intake Total 250 / 990.72 600 / 600 Output Total 1200 / 2750 Balance -950 / -1759.28 600 / 600 Weight last 48 hrs Weight 61.507 kg Weight 61.689 kg Physical Exam Narrative: Awake alert, no acute distress, on nitroglycerin drip, On room air HEENT Respiratory rate and rhythm per report Clear to auscultation per report No pedal edema Data 04/04/23 04:48 04/04/23 04:48 Micro: Microbiology 04/02/23 21:15 Urine Culture - Preliminary Urine,Clean Catch Gram Negative Rods A&P Assessment and plan (1) Hypertensive urgency: (2) Chronic renal failure: Plan 1. Chronic kidney disease stage III: Baseline creatinine is in the 2 range, creatinine is currently at 2.6. 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 No proteinuria no hematuria on UA. Renal ultrasound pending. Continue to monitor. 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 2. Hypertensive urgency: Unclear if patient was compliant with BP meds. Reports that she is not taking any BP meds at home. She presented with a blood pressure of 200 systolic and 110's diastolic. s/p nitro drip. She is on metoprolol 100 twice daily hydralazine 100mg 3 times daily and nifedipine extended release 90 mg daily, clonidine is 0.2 twice daily, Aldactone 25 g daily and Cardura 1 mg BID -We will do further work-up as pt has refractory HTN -No REJI on Doppler renal ultrasound -check cortisol, renin and aldosterone levels, check catecholamine levels -Check urine drug screen - added lasix 40 mg IV bid 3. History of CHF: Order echo, has elevated BNP 4. History of metastatic malignancy Patient evaluated using audiovisual cart. Time spent 40 minutes Attestations Medical Necessity Statement*: per medicine Coding Level of Care Code Acute Code for Chg Fwd Diagnoses Hypertensive urgency I16.0 Chronic renal failure N18.9
[2023-04-04] MEDS: metoprolol tartrate 50 mg Tablet 100 MG PO (17:23)
[2023-04-04] MEDS: oxyCODONE-APAP 5-325 mg Tablet 1 TAB PO (19:14)
[2023-04-05] VITALS (34 sets, daily range): BP systolic 103–180; BP diastolic 47–144; PULSE 54–84; RESP 6–27; TEMP 36.7–37.1; O2SAT 90–97
[2023-04-05] MEDS: morphine ER (12 HR) 30 mg tablet PO ×2 (01:47→13:25)
[2023-04-05 02:53] LABS: Basophils % 0.1 %; Eosinophils # 0.1 10^3/uL (0.0-0.8); Eosinophils % 0.8 %; Hematocrit 27.3 % (37.0-47.0); Hemoglobin 8.8 g/dL (11.5-15.3); Lymphocytes # 0.7 10^3/uL (0.8-4.8); Lymphocytes % 7.7 %; Mean Corpuscular HGB Conc 32.2 g/dL (30.0-36.0); Mean Corpuscular Hemoglobin 27.8 pg (28.0-34.0); Mean Corpuscular Volume 86.4 fl (81-99); Mean Platelet Volume 10.3 fL (7.4-10.4); Monocytes # 0.4 10^3/uL (0.2-0.9); Monocytes % 4.6 %; Neutrophils # 7.34 10^3/uL (1.8-7.7); Neutrophils % 84.7 %; Nucleated Red Blood Cells % 0 %; Platelet Count 135 10^3/cmm (130-400); Red Blood Count 3.16 10^6/uL (4.1-5.3); Red Cell Distribution Width 18.2 % (12.1-15.1); White Blood Count 8.7 10^3/uL (4.0-10.0)
[2023-04-05 03:46] LABS: Magnesium 1.5 mg/dL (1.7-2.3)
[2023-04-05 03:52] LABS: Anion Gap 16.9 (5-19); Blood Urea Nitrogen 59 mg/dL (6-20); Calcium 8.5 mg/dL (8.5-10.5); Carbon Dioxide 25 mmol/L (22-29); Chloride 86 mmol/L (98-107); Glucose 116 mg/dL (65-115); Osmolality Calculated 278 mOsm/kg (285-295); Sodium 125 mmol/L (136-145)
[2023-04-05 03:53] LABS: Potassium 2.9 mmol/L (3.5-5.1)
[2023-04-05] MEDS: lidocaine 1% 5 ML in potassium chloride premix 100 ML 26.25 ML IV (04:43)
[2023-04-05] MEDS: magnesium sulfate premix 2 GM/50 ML PIGGYBACK IV (04:46)
[2023-04-05] MEDS: oxyCODONE-APAP 5-325 mg Tablet 1 TAB PO ×2 (06:29)
[2023-04-05] MEDS: budesonide 0.5 mg/2 mL Neb INHALATION ×2 (07:35→19:53)
[2023-04-05] MEDS: ipratropium-albuterol 3 mL Neb INHALATION ×2 (07:35→19:53)
[2023-04-05] MEDS: ondansetron 2 mg/ML SDV 2 mL 4 MG IVP (08:06)
[2023-04-05] MEDS: metoprolol tartrate 50 mg Tablet 100 MG PO ×2 (08:08→17:02)
[2023-04-05] MEDS: apixaban 5 mg Tablet 2.5 MG PO ×2 (08:08→17:02)
[2023-04-05] MEDS: cloNIDine 0.1 mg Tablet 0.3 MG PO ×2 (08:09→17:02)
[2023-04-05] MEDS: docusate sodium 100 mg Capsule PO ×2 (08:09→17:02)
[2023-04-05] MEDS: spironolactone 25 mg Tablet PO (08:09)
[2023-04-05] MEDS: isosorbide mononitrate ER 60 mg Tablet PO (08:09)
[2023-04-05] MEDS: pantoprazole DR 40 mg Tablet PO (08:09)
[2023-04-05] MEDS: NIFEdipine ER (24 hr) 30 mg Tablet 90 MG PO (08:09)
[2023-04-05] MEDS: hyDRALAzine 50 mg Tablet 100 MG PO ×3 (08:09→20:43)
[2023-04-05] MEDS: doxazosin 1 mg Tablet PO ×2 (08:10→20:43)
--- NOTE | 2023-04-05 09:39 | PM.PN ---
Subjective Subjective: states she is feeling a little better Vitals/I&O/Wt Last Vital Signs Temp 98.6 F 04/05/23 04:00 Pulse 62 04/05/23 09:00 Resp 14 04/05/23 09:00 BP 180/144 04/05/23 09:00 Pulse Ox 91 04/05/23 08:00 O2 Del Method Nasal Cannula 04/05/23 07:35 O2 Flow Rate 2 04/05/23 07:35 current BP 138/99 04/04/23 04/05/23 04/05/23 22:59 06:59 14:59 Intake Total 1040 / 1640 500 / 2140 105 / 105 Output Total 2350 / 2350 1800 / 4150 Balance -1310 / -710 -1300 / -2009 105 / 105 Weight last 48 hrs Weight 60.6 kg Weight 61.507 kg Physical Exam Const: GENERAL APPEARANCE: cooperative and ill appearing Extremity: NARRATIVE EXTREMITY EXAM: UE edema Data 04/05/23 02:42 04/05/23 02:42 Other Labs: Mg 1.5, Ca 8.5, albumin 3.2 Micro: Microbiology 04/02/23 21:15 Urine Culture - Preliminary Urine,Clean Catch Gram Negative Rods CT Abd/Pel: Radiologist's impression: 1. ? Small bilateral pleural effusions. 2. ? Multiple lytic lesions with right proximal humerus pathologic fracture, pathologic C6, T1, and T3 vertebral body compression fractures. Destructive left acromial lesion. Additional sites of involvement detailed above. 3. ? Mediastinal lymphadenopathy. Suspect left supraclavicular and cervical lymphadenopathy. 4. ? Constellation of findings most suspicious for metastatic disease or possibly multiple myeloma. bilateral adrenal gland thickening US: Radiologist's impression: Mild renal atropy. Limited visualization of the kidneys. ?Multiple liver metastatic sites. ?No evidence of abdominal aortic aneurysm. There is no evidence ?of hemodynamically significant right renal artery stenosis. ?There is no evidence of hemodynamically significant left renal ?artery stenosis. Other data: seen via telemedicine with assistance of RN at bedside A&P Assessment and plan (1) Hypertensive urgency: (2) Chronic renal failure: Plan 1. Hypertension, overall BP improved 2. Chronic kidney disease, renal function stable 3. Hyponatremia, possible SIADH due to metastatic cancer +effect of furosemide 4. Hypokalemia, low magnesium 5. Anemia, iron replete 6. Metastatic urothelial cancer Recommend: replace KCl, Mg, check phos. increase spironolactone Attestations Medical Necessity Statement*: see above Time Spent in Patient Care: 16 - 35 minutes Coding Level of Care Code Acute Code for Chg Fwd Diagnoses Hypertensive urgency I16.0 Chronic renal failure N18.9
--- NOTE | 2023-04-05 11:06 | PM.PN ---
Subjective Subjective: - Patient was seen this morning -She is alert and awake, follows all commands -Her pain is well controlled, -Denies any headache, blurry vision, no nausea, no vomiting - Vitals/I&O/Wt Last Vital Signs Temp 98.6 F 04/05/23 04:00 Pulse 58 L 04/05/23 10:00 Resp 16 04/05/23 10:00 BP 138/99 04/05/23 10:00 Pulse Ox 90 04/05/23 10:00 O2 Del Method Nasal Cannula 04/05/23 07:35 O2 Flow Rate 2 04/05/23 07:35 04/04/23 04/05/23 04/05/23 22:59 06:59 14:59 Intake Total 1040 / 1640 500 / 2140 345 / 345 Output Total 2350 / 2350 1800 / 4150 Balance -1310 / -710 -1300 / -2009 345 / 345 Weight last 48 hrs Weight 60.6 kg Weight 61.507 kg Physical Exam Const: COMMON NORMALS: no acute distress and patient oriented x3 Chest: OTHER: Right arm in the sling Resp: COMMON NORMALS: normal respiratory effort, No retractions, No use of accessory muscles and clear to auscultation bilaterally AUSCULTATION: clear to auscultation bilaterally Cardio: COMMON NORMALS: regular rate, regular rhythm, S1 normal heart sound present and S2 normal heart sound present RATE: regular rate RHYTHM: regular rhythm HEART SOUNDS: S1 normal heart sound present and S2 normal heart sound present GI: COMMON NORMALS: Normal to inspection, nondistended, normoactive bowel sounds present and non-tender Extremity: COMMON NORMALS: no pedal edema Neuro: COMMON NORMALS: patient oriented x3 Psych: COMMON NORMALS: mental status grossly normal Data 04/05/23 02:42 04/05/23 02:42 Micro: Microbiology 04/02/23 21:15 Urine Culture - Preliminary Urine,Clean Catch Gram Negative Rods A&P Assessment and plan (1) Hypertensive urgency: (2) Acute encephalopathy: (3) Chronic renal failure: (4) Anemia: (5) Bladder cancer: (6) Urothelial cancer: (7) Cancer, metastatic to bone: (8) Humerus head fracture: (9) Pathologic fracture of femur: (10) Pathological fracture of right humerus with delayed healing: (11) Protein calorie malnutrition: (12) Physical deconditioning: (13) Metastasis to liver: (14) Mediastinal lymphadenopathy: (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: (16) Retroperitoneal lymphadenopathy: (17) Hx of total cystectomy: (18) Closed compression fracture of body of lumbar vertebra: (19) NSTEMI (non-ST elevated myocardial infarction): (20) Intractable pain: (21) Resistant hypertension: (22) Hyponatremia: Plan Hypertensive urgency -This is patient's second hospitalization in the last week for hypertensive urgency -We will look for secondary causes for resistant hypertension including renin aldosterone level urine catecholamines so far pending -renal artery ultrasound so far no significant ultrasound evidence of renal artery stenosis -Last hospitalization was at [facility] -Currently off nitro drip -Continue clonidine, hydralazine, nifedipine, metoprolol, spironolactone, Cardura -Wean as tolerated -move patient out of icu -hyponatremia 125 -Repeat serum sodium in the afternoon -Possible SIADH, -Hold Lasix therapy Acute encephalopathy -Overall back to baseline -But is alert and oriented to person, to place, not to time -We will consider head MRI based on clinical progress Head CT shows multiple lytic lesions throughout the calvarium 1. ? Interval appearance of multiple lytic lesions throughout the calvarium consistent with multiple myeloma versus bone metastasis. 2. ? 1.5 x 0.7 cm soft tissue mass extending into the right occipital scalp from lytic bone destruction, axial series 5, image 40. 3. ? 1.4 x 0.9 cm soft tissue lesion extending into the left frontal scalp in the region of the lytic bone destruction. Axial series 5, image 30. 4. ? Additional lytic bone destruction with soft tissue extension into the right forehead soft tissues, axial series 5, image 24. 5. ? Multiple additional lytic bone lesions which have broken through the inner table suggesting possible extradural soft tissue lesions. 6. ? No acute intracranial findings. CT with contrast and MRI with contrast or more sensitive for detection of intracranial metastasis. CKD stage IV -From records from [facility], her creatinine ranges from 1.8-2.7 -She does report a history of dialysis, through her right Mediport, roughly 2 years ago when she used to receive chemotherapy -Consult nephrology NSTEMI -Likely type II, supply demand ischemia, from hypertensive urgency -No chest pain complaints -We will monitor Metastatic urothelial cancer -Status post cystectomy, ileal conduit -She was receiving chemotherapy and dialysis to [facility] roughly 2 years ago but had to stop due to an illness in her mother for which she had to help take care of her -Biopsy results from her left femur, from [facility] show that she has metastatic urothelial cancer -Now metastatic to bone, with pathologic fractures, compression deformities, metastasis to the liver -We will have her follow-up with Dr. Smith as outpatient, Protein calorie malnutrition, consult dietary Physical deconditioning, PT OT, right shoulder in a sling Left femur fracture, status post pinning at [facility] Right humeral head fracture Displaced angulated pathologic fracture involving the humeral head and neck from aggressive/destructive expansile lytic lesion concerning for metastatic disease or multiple myeloma. -Currently in a sling -Discussed with orthopedic service, medical management, CT -Patient wants to pursue treatments, will potentially have to discuss with spoke to Dr. Walker, at [facility], he is agreed to see the patient as outpatient, for surgical consultation, I have had nursing staff fax over her information for possible consultation next week in office Multiple osseous lytic lesions with mild compression deformity of the L5 vertebral body in keeping with metastatic disease or multiple myeloma. 2. ? Multiple lytic lesions with right proximal humerus pathologic fracture, pathologic C6, T1, and T3 vertebral body compression fractures. Destructive left acromial lesion. Additional sites of involvement detailed above. -No back pain complaints -We will monitor -No back pain complaints -TLSO brace Has evidence of liver metastasis, retroperitoneal and mediastinal lymphadenopathy 1. ? Hepatomegaly with numerous hypodense liver lesions suspicious for metastatic disease. 2. ? Retroperitoneal lymphadenopathy. Suspect malignancy. 3. ? Mediastinal lymphadenopathy. Suspect left supraclavicular and cervical lymphadenopathy. ? Full code currently Eliquis for DVT prophylaxis Plan for today hyponatremia, monitor serum sodium, stop Lasix therapy increase Cardura to 1 twice daily, spironolactone has been increased, up out of bed, physical therapy, watch creatinine, hypomagnesemia replaced overnight, hypokalemia, replaced Attestations Medical Necessity Statement*: Patient requires hospitalization for hypertensive urgency, now with hyponatremia Diagnoses Hypertensive urgency I16.0 Acute encephalopathy G93.40 Chronic renal failure N18.9 Anemia D64.9 Bladder cancer C67.9 Urothelial cancer C68.9 Cancer, metastatic to bone C79.51 Humerus head fracture S42.293A Pathologic fracture of femur M84.453A Pathological fracture of right humerus with delayed healing M84.421G Protein calorie malnutrition E46 Physical deconditioning R53.81 Metastasis to liver C78.7 Mediastinal lymphadenopathy R59.0 Cancer of left acromial process C40.02 Retroperitoneal lymphadenopathy R59.0 Hx of total cystectomy Z90.6 Closed compression fracture of body of lumbar vertebra S32.000A NSTEMI (non-ST elevated myocardial infarction) I21.4 Intractable pain R52 Resistant hypertension I10 Hyponatremia E87.1
[2023-04-05 18:27] LABS: Anion Gap 16.5 (5-19); Blood Urea Nitrogen 61 mg/dL (6-20); Calcium 8.8 mg/dL (8.5-10.5); Carbon Dioxide 24 mmol/L (22-29); Chloride 86 mmol/L (98-107); Glucose 103 mg/dL (65-115); Osmolality Calculated 274 mOsm/kg (285-295); Potassium 3.5 mmol/L (3.5-5.1); Sodium 123 mmol/L (136-145)
[2023-04-06] VITALS (33 sets, daily range): BP systolic 116–158; BP diastolic 69–102; PULSE 48–66; RESP 8–18; TEMP 36.8–37.2; O2SAT 92–98; BMI 21.4
[2023-04-06] MEDS: morphine ER (12 HR) 30 mg tablet PO ×2 (00:51→13:08)
[2023-04-06 02:58] LABS: Basophils % 0.2 %; Eosinophils % 0.4 %; Hematocrit 25.8 % (37.0-47.0); Hemoglobin 8.3 g/dL (11.5-15.3); Lymphocytes # 0.5 10^3/uL (0.8-4.8); Mean Corpuscular HGB Conc 32.2 g/dL (30.0-36.0); Mean Corpuscular Hemoglobin 28.2 pg (28.0-34.0); Mean Corpuscular Volume 87.8 fl (81-99); Mean Platelet Volume 10.6 fL (7.4-10.4); Monocytes # 0.4 10^3/uL (0.2-0.9); Monocytes % 4.5 %; Neutrophils # 7.35 10^3/uL (1.8-7.7); Neutrophils % 87.6 %; Nucleated Red Blood Cells % 0 %; Platelet Count 146 10^3/cmm (130-400); Red Blood Count 2.94 10^6/uL (4.1-5.3); Red Cell Distribution Width 18.2 % (12.1-15.1); White Blood Count 8.4 10^3/uL (4.0-10.0)
[2023-04-06 03:23] LABS: Magnesium 1.9 mg/dL (1.7-2.3); Phosphorus 5.7 mg/dL (2.5-4.5)
[2023-04-06 04:12] LABS: Anion Gap 17.4 (5-19); Blood Urea Nitrogen 61 mg/dL (6-20); Calcium 8.7 mg/dL (8.5-10.5); Carbon Dioxide 24 mmol/L (22-29); Chloride 89 mmol/L (98-107); Glomerular Filtration Rate 19.1 mL/min (90-130); Glucose 92 mg/dL (65-115); Osmolality Calculated 281 mOsm/kg (285-295); Potassium 3.4 mmol/L (3.5-5.1); Sodium 127 mmol/L (136-145)
[2023-04-06] MEDS: spironolactone 25 mg Tablet 50 MG PO (09:01)
[2023-04-06] MEDS: hyDRALAzine 50 mg Tablet 100 MG PO ×3 (09:01→20:02)
[2023-04-06] MEDS: pantoprazole DR 40 mg Tablet PO (09:01)
[2023-04-06] MEDS: NIFEdipine ER (24 hr) 30 mg Tablet 90 MG PO (09:01)
[2023-04-06] MEDS: docusate sodium 100 mg Capsule PO ×2 (09:02→17:13)
[2023-04-06] MEDS: apixaban 5 mg Tablet 2.5 MG PO ×2 (09:02→17:13)
[2023-04-06] MEDS: cloNIDine 0.1 mg Tablet 0.3 MG PO ×2 (09:02→17:11)
[2023-04-06] MEDS: metoprolol tartrate 50 mg Tablet 100 MG PO ×2 (09:03→17:11)
[2023-04-06] MEDS: doxazosin 1 mg Tablet PO ×2 (09:03→20:02)
[2023-04-06] MEDS: isosorbide mononitrate ER 60 mg Tablet PO (09:04)
[2023-04-06] MEDS: budesonide 0.5 mg/2 mL Neb INHALATION ×2 (09:33→19:26)
[2023-04-06] MEDS: ipratropium-albuterol 3 mL Neb INHALATION ×2 (09:35→19:25)
--- NOTE | 2023-04-06 10:22 | P.PN_ITS ---
Subjective Subjective: no new complaints. denies pain Vitals/I&O/Wt Last Vital Signs Temp 98.2 F 04/06/23 04:00 Pulse 59 L 04/06/23 09:00 Resp 10 L 04/06/23 09:00 BP 158/90 04/06/23 09:02 Pulse Ox 94 04/06/23 09:00 O2 Del Method Nasal Cannula 04/06/23 09:00 O2 Flow Rate 1.5 04/06/23 07:55 04/05/23 04/06/23 04/06/23 22:59 06:59 14:59 Intake Total 222 / 807 480 / 1287 Output Total 1000 / 1000 850 / 1850 Balance -778 / -193 -370 / -563 Weight last 48 hrs Weight 63.775 kg Weight 60.6 kg Physical Exam Const: COMMON NORMALS: no acute distress and alert; negative for healthy appearing Neuro: SENSORIUM/ORIENTATION: Yes alert Data 04/06/23 02:32 04/06/23 02:32 Other Labs: Ca 8.7, phos 5.7, Mg 1.9 Other data: seen via telemedicine with assistance of RN at bedside A&P Assessment and plan (1) Hypertensive urgency: (2) Chronic renal failure: Plan 1. Hypertension, BP improved, not on ACEi or ARB due to advanced renal dy sfunction. 2. Chronic kidney disease, renal function stable 3. Hyponatremia, possible SIADH due to metastatic cancer, improved 4. Hypokalemia, spironolactone increased, replace po 5. Anemia, iron replete 6. Metastatic urothelial cancer Recommend: continue current medications. Attestations Medical Necessity Statement*: per primary service Time Spent in Patient Care: 16 - 35 minutes Coding Level of Care Code Acute Code for Chg Fwd Diagnoses Hypertensive urgency I16.0 Chronic renal failure N18.9
--- NOTE | 2023-04-06 13:03 | PC.NURSE ---
At this time, patient refuses turning. Education provided on pressure injury and infection risk of pressure injuries. Will continue to offer turning/ positioning.
--- NOTE | 2023-04-06 15:44 | PM.PN ---
Subjective Subjective: Patient was seen this morning she is alert oriented x3, she denies any lightheadedness, no dizziness, denies any nausea, no vomiting, she does feel weak, she does work physical therapy, she is agreeable to go home with her family, if there is issues on placing her at a detention facility, Vitals/I&O/Wt Last Vital Signs Temp 98.9 F 04/06/23 12:00 Pulse 53 L 04/06/23 14:24 Resp 12 04/06/23 14:00 BP 144/92 04/06/23 14:00 Pulse Ox 98 04/06/23 14:00 O2 Del Method Nasal Cannula 04/06/23 14:00 O2 Flow Rate 1.5 04/06/23 07:55 04/06/23 04/06/23 04/06/23 06:59 14:59 22:59 Intake Total 480 / 1287 360 / 360 Output Total 850 / 1850 500 / 500 Balance -370 / -563 -140 / -140 Weight last 48 hrs Weight 63.775 kg Weight 60.6 kg Physical Exam Const: COMMON NORMALS: no acute distress and patient oriented x3 Resp: COMMON NORMALS: normal respiratory effort, No retractions, No use of accessory muscles and clear to auscultation bilaterally AUSCULTATION: clear to auscultation bilaterally Cardio: COMMON NORMALS: regular rate, regular rhythm, S1 normal heart sound present and S2 normal heart sound present RATE: regular rate RHYTHM: regular rhythm HEART SOUNDS: S1 normal heart sound present and S2 normal heart sound present GI: COMMON NORMALS: Normal to inspection, nondistended, normoactive bowel sounds present and non-tender Extremity: COMMON NORMALS: no pedal edema Neuro: COMMON NORMALS: patient oriented x3 Psych: COMMON NORMALS: mental status grossly normal Data 04/06/23 02:32 04/06/23 02:32 A&P Assessment and plan (1) Hypertensive urgency: (2) Acute encephalopathy: (3) Chronic renal failure: (4) Anemia: (5) Bladder cancer: (6) Urothelial cancer: (7) Cancer, metastatic to bone: (8) Humerus head fracture: (9) Pathologic fracture of femur: (10) Pathological fracture of right humerus with delayed healing: (11) Protein calorie malnutrition: (12) Physical deconditioning: (13) Metastasis to liver: (14) Mediastinal lymphadenopathy: (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: (16) Retroperitoneal lymphadenopathy: (17) Hx of total cystectomy: (18) Closed compression fracture of body of lumbar vertebra: (19) NSTEMI (non-ST elevated myocardial infarction): (20) Intractable pain: (21) Resistant hypertension: (22) Hyponatremia: Plan Hypertensive urgency -This is patient's second hospitalization in the last week for hypertensive urgency -We will look for secondary causes for resistant hypertension including renin aldosterone level urine catecholamines so far pending -renal artery ultrasound so far no significant ultrasound evidence of renal artery stenosis -Last hospitalization was at [facility] -Currently off nitro drip -Continue clonidine, hydralazine, nifedipine, metoprolol, spironolactone, Cardura -Wean as tolerated -move patient out of icu -hyponatremia 127 -Possible SIADH, -Hold Lasix therapy Acute encephalopathy -Overall back to baseline -But is alert and oriented to person, to place, not to time -We will consider head MRI based on clinical progress Head CT shows multiple lytic lesions throughout the calvarium 1. ? Interval appearance of multiple lytic lesions throughout the calvarium consistent with multiple myeloma versus bone metastasis. 2. ? 1.5 x 0.7 cm soft tissue mass extending into the right occipital scalp from lytic bone destruction, axial series 5, image 40. 3. ? 1.4 x 0.9 cm soft tissue lesion extending into the left frontal scalp in the region of the lytic bone destruction. Axial series 5, image 30. 4. ? Additional lytic bone destruction with soft tissue extension into the right forehead soft tissues, axial series 5, image 24. 5. ? Multiple additional lytic bone lesions which have broken through the inner table suggesting possible extradural soft tissue lesions. 6. ? No acute intracranial findings. CT with contrast and MRI with contrast or more sensitive for detection of intracranial metastasis. CKD stage IV -From records from [facility], her creatinine ranges from 1.8-2.7 -She does report a history of dialysis, through her right Mediport, roughly 2 years ago when she used to receive chemotherapy -Consult nephrology NSTEMI -Likely type II, supply demand ischemia, from hypertensive urgency -No chest pain complaints -We will monitor Metastatic urothelial cancer -Status post cystectomy, ileal conduit -She was receiving chemotherapy and dialysis to [facility] roughly 2 years ago but had to stop due to an illness in her mother for which she had to help take care of her -Biopsy results from her left femur, from [facility] show that she has metastatic urothelial cancer -Now metastatic to bone, with pathologic fractures, compression deformities, metastasis to the liver -We will have her follow-up with Dr. Smith as outpatient, Protein calorie malnutrition, consult dietary Physical deconditioning, PT OT, right shoulder in a sling Left femur fracture, status post pinning at [facility] Right humeral head fracture Displaced angulated pathologic fracture involving the humeral head and neck from aggressive/destructive expansile lytic lesion concerning for metastatic disease or multiple myeloma. -Currently in a sling -Discussed with orthopedic service, medical management, CT -Patient wants to pursue treatments, will potentially have to discuss with spoke to Dr. Walker, at [facility], he is agreed to see the patient as outpatient, for surgical consultation, I have had nursing staff fax over her information for possible consultation next week in office Multiple osseous lytic lesions with mild compression deformity of the L5 vertebral body in keeping with metastatic disease or multiple myeloma. 2. ? Multiple lytic lesions with right proximal humerus pathologic fracture, pathologic C6, T1, and T3 vertebral body compression fractures. Destructive left acromial lesion. Additional sites of involvement detailed above. -No back pain complaints -We will monitor -No back pain complaints -TLSO brace Has evidence of liver metastasis, retroperitoneal and mediastinal lymphadenopathy 1. ? Hepatomegaly with numerous hypodense liver lesions suspicious for metastatic disease. 2. ? Retroperitoneal lymphadenopathy. Suspect malignancy. 3. ? Mediastinal lymphadenopathy. Suspect left supraclavicular and cervical lymphadenopathy. ? Full code currently Eliquis for DVT prophylaxis Plan for today hyponatremia, monitor serum sodium, up out of bed, Attestations Medical Necessity Statement*: patient requires hospitalization for htn, diffusely metastatic urothelial cancer, pain control Diagnoses Hypertensive urgency I16.0 Acute encephalopathy G93.40 Chronic renal failure N18.9 Anemia D64.9 Bladder cancer C67.9 Urothelial cancer C68.9 Cancer, metastatic to bone C79.51 Humerus head fracture S42.293A Pathologic fracture of femur M84.453A Pathological fracture of right humerus with delayed healing M84.421G Protein calorie malnutrition E46 Physical deconditioning R53.81 Metastasis to liver C78.7 Mediastinal lymphadenopathy R59.0 Cancer of left acromial process C40.02 Retroperitoneal lymphadenopathy R59.0 Hx of total cystectomy Z90.6 Closed compression fracture of body of lumbar vertebra S32.000A NSTEMI (non-ST elevated myocardial infarction) I21.4 Intractable pain R52 Resistant hypertension I10 Hyponatremia E87.1
[2023-04-07] VITALS (19 sets, daily range): BP systolic 125–189; BP diastolic 82–108; PULSE 54–72; RESP 12–19; TEMP 36.6–36.8; O2SAT 93–98; BMI 21.2
[2023-04-07] MEDS: morphine ER (12 HR) 30 mg tablet PO (00:48)
[2023-04-07 03:15] LABS: Basophils % 0.2 %; Eosinophils # 0.1 10^3/uL (0.0-0.8); Eosinophils % 0.8 %; Hematocrit 24.9 % (37.0-47.0); Hemoglobin 8.1 g/dL (11.5-15.3); Lymphocytes # 0.5 10^3/uL (0.8-4.8); Lymphocytes % 5.2 %; Mean Corpuscular HGB Conc 32.5 g/dL (30.0-36.0); Mean Corpuscular Hemoglobin 27.8 pg (28.0-34.0); Mean Corpuscular Volume 85.6 fl (81-99); Mean Platelet Volume 11.2 fL (7.4-10.4); Monocytes # 0.4 10^3/uL (0.2-0.9); Neutrophils % 87.5 %; Nucleated Red Blood Cells % 0 %; Platelet Count 144 10^3/cmm (130-400); Red Blood Count 2.91 10^6/uL (4.1-5.3); White Blood Count 8.6 10^3/uL (4.0-10.0)
[2023-04-07] MEDS: oxyCODONE-APAP 5-325 mg Tablet 1 TAB PO (03:24)
[2023-04-07 03:31] LABS: Anion Gap 14.2 (5-19); Blood Urea Nitrogen 63 mg/dL (6-20); Calcium 9.1 mg/dL (8.5-10.5); Carbon Dioxide 24 mmol/L (22-29); Chloride 92 mmol/L (98-107); Glomerular Filtration Rate 17.5 mL/min (90-130); Glucose 114 mg/dL (65-115); Osmolality Calculated 283 mOsm/kg (285-295); Potassium 3.2 mmol/L (3.5-5.1); Sodium 127 mmol/L (136-145)
[2023-04-07] MEDS: ipratropium-albuterol 3 mL Neb INHALATION (08:23)
[2023-04-07] MEDS: budesonide 0.5 mg/2 mL Neb INHALATION (08:23)
[2023-04-07] MEDS: cefTRIAXone 1,000 MG in sodium chloride 0.9% (plus) 50 ML 100 MG IV (08:26)
[2023-04-07] MEDS: cloNIDine 0.1 mg Tablet 0.3 MG PO (08:29)
[2023-04-07] MEDS: hyDRALAzine 50 mg Tablet 100 MG PO (08:30)
[2023-04-07] MEDS: NIFEdipine ER (24 hr) 30 mg Tablet 90 MG PO (08:30)
[2023-04-07] MEDS: potassium chloride ER 20 mEq Tablet 40 MEQ PO (08:30)
[2023-04-07] MEDS: spironolactone 25 mg Tablet 50 MG PO (08:30)
[2023-04-07] MEDS: apixaban 5 mg Tablet 2.5 MG PO (08:30)
[2023-04-07] MEDS: docusate sodium 100 mg Capsule PO (08:30)
[2023-04-07] MEDS: metoprolol tartrate 50 mg Tablet 100 MG PO (08:30)
[2023-04-07] MEDS: pantoprazole DR 40 mg Tablet PO (08:30)
[2023-04-07] MEDS: isosorbide mononitrate ER 60 mg Tablet PO (08:30)
[2023-04-07] MEDS: doxazosin 1 mg Tablet PO (08:43)
--- NOTE | 2023-04-07 10:29 | P.DS_ITS ---
Discharge Providers Date of Admission: 04/02/23 01:47 Date of Discharge: April 07, 2023 Attending Provider at Admission: Sujit Stafford MD Attending Provider at Discharge: Josias Gomes MD Primary Care Provider: Ortiz Clark DO Diagnoses at Discharge Discharge Diagnosis (1) Hypertensive urgency: Status: Acute (2) Acute encephalopathy: Status: Acute (3) Chronic renal failure: Status: Acute (4) Anemia: Status: Acute (5) Bladder cancer: Status: Acute (6) Urothelial cancer: Status: Acute (7) Cancer, metastatic to bone: Status: Acute (8) Humerus head fracture: Status: Acute (9) Pathologic fracture of femur: Status: Acute (10) Pathological fracture of right humerus with delayed healing: Status: Acute (11) Protein calorie malnutrition: Status: Acute (12) Physical deconditioning: Status: Acute (13) Metastasis to liver: Status: Acute (14) Mediastinal lymphadenopathy: Status: Acute (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: Status: Acute (16) Retroperitoneal lymphadenopathy: Status: Acute (17) Hx of total cystectomy: Status: Acute (18) Closed compression fracture of body of lumbar vertebra: Status: Acute (19) NSTEMI (non-ST elevated myocardial infarction): Status: Acute (20) Intractable pain: Status: Acute (21) Resistant hypertension: Status: Acute (22) Hyponatremia: Status: Acute Reason for Visit Reason for Visit: LEG PAIN Hospital Course Hospital Course Bee Manjarrez is a 53 year old female with history of breast cancer, bladder cancer, and? concern for lytic lesion in the pelvis with recent hospitalization at [facility] for marked hypertension from March 25 presenting from the senior living for evaluation of hypertension.? Unfortunately records from [facility] are not available.? In talking with the nurse from the nursing facility, patient requested to go to [facility] instead of [facility] where all of her health care has been given recently.? There has been concern that she has metastatic bladder cancer.? She recently had a hip fracture and repair.? Her most recent hospital stay from March 25 through metoprolol was increased to 100 mg twice daily from 25 twice a day, nifedipine from 30 to 90 mg daily, Aldactone added, Bumex added, clonidine added, and hydralazine added.? I am not for sure if she got any significant other work-up.? There are no medications that appear to have been withdrawn from her nursing facility record.? During this time patient has been relatively asymptomatic according to the nursing facility.? She usually does not have any chest pain or shortness of breath.? She does seem somewhat sluggish, especially in the emergency department currently.? This is hard to delineate whether it is significant as she recently received from morphine.? There is no history of any fever.? She denies any headache, or vomiting. Secondary to concern of marked hypertension, likely hypertensive urgency and possible look encephalopathy from this nitroglycerin drip has been ordered to lower blood pressure approximately 20%, no lower than 160 systolic.? Will also check CT head.? Further evaluation in the ICU to include echocardiogram and renal artery duplex Patient had a complicated medical stay, please refer to my last progress note Patient has a history of breast cancer, ER positive [place] positive HER2/eve positive, -In 2020, she was found to have invasive bladder cancer with bilateral ureteral obstruction and bilateral nephroureteral tubes, required temporary dialysis due to obstruction, did not receive neoadjuvant chemotherapy due to renal disease, did not follow-up with oncology at [facility]. 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, carcinoma involves muscularis propria, margins negative, vascular invasion present, T2AN1, patient had a radical cystectomy, hysterectomy, urethraectomy with bilateral salpingo- oophorectomy, PET scan 2020, showed likely reactive mediastinal lymph nodes, no evidence of metastatic involvement, incidental right hydroureteronephrosis and left pelvic seroma, July 19, 2021 cycle 1 of Opdivo, she also had her old port removed and then replaced, patient completed her fifth cycle of chemo 09/13/2021, her last staging from 12/26/2020 was stage IIIa, pT2a, PN 1, CM0, she didnot receive cisplatinin based chemotherapy based on her ckd, the plan was to do Opdivo every 2 weeks, however patient was lost to follow-up as her mother got sick and she had to take care of her mom, in addition her car broke down so she could not follow-up with [facility] in [place], so she has not received any immunotherapy for the last 2 years, in February 2023, she presented to [facility], was found to have a pathologic fracture of the left femur, status post gamma nailing, and intramedullary garo, she had a biopsy at that time of her left femur, which showed metastatic urothelial carcinoma, positive for thrombomodulin, uroplakin 2, CK7, CK20, GATA3, rare cells staining for CK5, negative for estrogen rec eptors, progesterone receptors Napsin a, S100, TTF-1. -Here at [facility] patient was found to have a right humeral head fracture, pathologic, aggressive/destructive expansile lytic lesion, spoke to orthopedic service, they recommended medical management with a sling, and referral to tertiary level center for evaluation. I spoke to Dr. Walker team at [facility] orthopedics, for surgical consultation, they have agreed to see patient through outpatient care center for surgical evaluation for her humeral fracture. Her appointment is in April, for now continue pain management, and medical management with a sling -Patient was found to have radiographic evidence of metastatic urothelial cancer, with multiple osseous lytic lesions, retroperitoneal and mediastinal lymphadenopathy, and with evidence of liver lesions. I spoke to oncology, Dr. Smith, he is agreed to follow patient closely for consideration of immunotherapy. Patient has voiced that she does not want to she wants to pursue chemotherapy or immunotherapy involving her metastatic urothelial cancer, I discussed with her that my concern is her performance status, and her chronic kidney disease. -She also was found to have multiple lytic lesions, C6, T1, T3 with vertebral compression fractures, managed medically, pain control, TLSO brace, she can follow-up with Dr. Pimentel as outpatient for consideration of surgical invention -She is also found to have a destructive lesion in the left acromion -Head CT shows multiple lytic lesions throughout the calvarium 1. ? Interval appearance of multiple lytic lesions throughout the calvarium consistent with multiple myeloma versus bone metastasis. 2. ? 1.5 x 0.7 cm soft tissue mass extending into the right occipital scalp from lytic bone destruction, axial series 5, image 40. 3. ? 1.4 x 0.9 cm soft tissue lesion extending into the left frontal scalp in the region of the lytic bone destruction. Axial series 5, image 30. 4. ? Additional lytic bone destruction with soft tissue extension into the right forehead soft tissues, axial series 5, image 24. 5. ? Multiple additional lytic bone lesions which have broken through the inner table suggesting possible extradural soft tissue lesions. 6. ? No acute intracranial findings. CT with contrast and MRI with contrast or more sensitive for detection of intracranial metastasis. -Patient was advised to ambulate with care as she has multiple destructive lytic lesions throughout her bony skeleton advised to ambulate with care if she has any significant fall or trauma please go to the emergency room. In terms of anticoagulation, she was discharged on Eliquis 2.5 mg twice daily from [facility] for DVT prophylaxis after her fall and fracture of her left femur. Given her evidence of metastatic urothelial cancer her decreasing performance status, now with her right humeral fracture, she has a high risk of hypercoagulable events, I discussed the risks and benefits of anticoagulation especially given her anemia, shared decision making, discussed risk including but not limited to life-threatening bleeding, benefits include decreasing the risk of hypercoagulable events. After discussing the risk and benefits, she voiced understanding, all questions answered, agreed to proceed with Eliquis 2.5 mg twice daily for now. Her venous ultrasound was negative for DVT during her hospitalization. -In terms of her performance status, contact-guard assist, 1 person assist, -In terms of her placement, attempts were made to place her to care home facility however given her desire to pursue immunotherapy and chemotherapy, this was proven to be difficult, she does not have insurance, does have a Medicare number pending, she could not afford home health care, discharged home under the care of her family She did have hyponatremia during her hospitalization likely a component of SIADH, some component related to diuretic therapy, overall her serum sodiums are stable on discharge 127 She had acute encephalopathy during hospitalization likely secondary to hypertensive urgency, resolved on discharge She had NSTEMI during the hospitalization, likely supply demand ischemia, likely related to hypertensive urgency no chest pain complaints, monitor for chest pain CKD stage IV, baseline creatinine is anywhere between 1.8-2.7, she does report dialysis roughly 2 years ago, and [facility] however I do not see any documentation of this, currently not on dialysis Her hospitalization was complicated with hypertensive urgency on admission, initially managed with a nitroglycerin drip, she required multiple blood pressure medications to control her hypertension, had fairly resistant hypertension -Renal ultrasound negative for renal artery stenosis -Her urine catecholamines are pending -On discharge she has been discharged on multiple antihypertensive medications -Including Cardura 1 mg twice daily, hydralazine 103 times daily, metoprolol 100 twice daily, nifedipine 90 mg once daily, Bumex 1 mg p.o. daily, spironolactone 50 mg daily -As she has quite resistant hypertension, this is her second hospitalization for hypertensive urgency, her first admission was at [facility] -If she continues to have episodes of hypertensive urgency, my suspicion is for pheochromocytoma, we will see what her catecholamine show as outpatient which should be followed Physical Exam Const: COMMON NORMALS: no acute distress and patient oriented x3 Resp: COMMON NORMALS: normal respiratory effort, No retractions, No use of accessory muscles and clear to auscultation bilaterally AUSCULTATION: clear to auscultation bilaterally Cardio: COMMON NORMALS: regular rate, regular rhythm, S1 normal heart sound present and S2 normal heart sound present RATE: regular rate RHYTHM: regular rhythm HEART SOUNDS: S1 normal heart sound present and S2 normal heart sound present GI: COMMON NORMALS: Normal to inspection, nondistended, normoactive bowel sounds present and non-tender Extremity: COMMON NORMALS: no clubbing, cyanosis or edema and no pedal edema Neuro: COMMON NORMALS: patient oriented x3 Psych: COMMON NORMALS: mental status grossly normal Discharge Data Studies Completed and Pending Completed Studies During Hospitalization Category Date Time Status CT chest abdomen pelvis [[place] [id number] Cat Scan 04/02/23 12:23 Completed ] Routine CT head wo con* [id number] Stat Cat Scan 04/02/23 00:[address] shoulder RT wo con* [id number] Routine Cat Scan 04/02/23 12:44 Completed CXRP [XR chest 1V portable [id number]] Stat Exams 04/01/23 23:31 Completed XR bone survey* [id number] Routine Exams 04/02/23 08:44 Completed US renal doppler [CV renal doppler [id number]] Routine Ultrasound 04/03/23 08:08 Completed US venous duplex lower extremity bilat [CV venous Ultrasound 04/03/23 12:17 [place] [id number]] Routine Pending at discharge Category Date Time Status BMP [Basic Metabolic Panel] Routine Lab 04/07/23 10:51 Ordered Basic Metabolic Panel AM LABS Lab 04/08/23 04:00 Ordered Basic Metabolic Panel AM LABS Lab 04/09/23 04:00 Ordered Catecholamines Frac,Urine [place] Stat Lab 04/03/23 10:28 Received Complete Blood Count w/Auto AM LABS Lab 04/08/23 04:00 Ordered Complete Blood Count w/Auto AM LABS Lab 04/09/23 04:00 Ordered Metanephrines, Frac LC/MS/MS Routine Lab 04/03/23 04:05 Received Occult Blood Stool [Immunochemical Fecal OCB] Routine Lab 04/02/23 08:44 Uncollected RENIN [Plasma Renin Activity LC/MS/MS] Routine Lab 04/03/23 17:03 Received Urine Culture Routine Lab 04/02/23 21:15 Results Radiology Impressions Chest X-Ray 04/01/23 23:31 IMPRESSION: 1. Stable right Mediport catheter. 2. Borderline to mild cardiomegaly. 3. Hyperaerated lungs consistent with COPD . Head CT 04/02/23 00:59 IMPRESSION: 1. Interval appearance of multiple lytic lesions throughout the calvarium consistent with multiple myeloma versus bone metastasis. 2. 1.5 x 0.7 cm soft tissue mass extending into the right occipital scalp from lytic bone destruction, axial series 5, image 40. 3. 1.4 x 0.9 cm soft tissue lesion extending into the left frontal scalp in the region of the lytic bone destruction. Axial series 5, image 30. 4. Additional lytic bone destruction with soft tissue extension into the right forehead soft tissues, axial series 5, image 24. 5. Multiple additional lytic bone lesions which have broken through the inner table suggesting possible extradural soft tissue lesions. 6. No acute intracranial findings. CT with contrast and MRI with contrast or more sensitive for detection of intracranial metastasis. ASSESSMENT: ASPECTS (Bernadette Stroke Program Early CT Score) is 10. Bone Osseous Survey 04/02/23 08:44 IMPRESSION: Abnormal bone survey with findings described above. Chest/Abdomen/Pelvis CT 04/02/23 12:23 IMPRESSION: 1. Small bilateral pleural effusions. 2. Multiple lytic lesions with right proximal humerus pathologic fracture, pathologic C6, T1, and T3 vertebral body compression fractures. Destructive left acromial lesion. Additional sites of involvement detailed above. 3. Mediastinal lymphadenopathy. Suspect left supraclavicular and cervical lymphadenopathy. 4. Constellation of findings most suspicious for metastatic disease or possibly multiple myeloma. IMPRESSION: 1. Hepatomegaly with numerous hypodense liver lesions suspicious for metastatic disease. 2. Retroperitoneal lymphadenopathy. Suspect malignancy. 3. Multiple osseous lytic lesions with mild compression deformity of the L5 vertebral body in keeping with metastatic disease or multiple myeloma. 4. Bilateral renal atrophy and cystectomy status post ureteroileal conduit. 5. Atherosclerosis. Shoulder CT 04/02/23 12:44 IMPRESSION: Displaced angulated pathologic fracture involving the humeral head and neck from aggressive/destructive expansile lytic lesion concerning for metastatic disease or multiple myeloma. Laboratory Results WBC 8.6 10^3/uL (4.0-10.0) 04/07/23 03:00 RBC 2.91 10^6/uL (4.1-5.3) L 04/07/23 03:00 Hgb 8.1 g/dL (11.5-15.3) L 04/07/23 03:00 Hct 24.9 % (37.0-47.0) L 04/07/23 03:00 MCV 85.6 fl (81-99) 04/07/23 03:00 MCH 27.8 pg (28.0-34.0) L 04/07/23 03:00 MCHC 32.5 g/dL (30.0-36.0) 04/07/23 03:00 RDW 18.0 % (12.1-15.1) H 04/07/23 03:00 Plt Count 144 10^3/cmm (130-400) 04/07/23 03:00 MPV 11.2 fL (7.4-10.4) H 04/07/23 03:00 Neut % (Auto) 87.5 % 04/07/23 03:00 Lymph % (Auto) 5.2 % 04/07/23 03:00 [place] % (Auto) 5.0 % 04/07/23 03:00 Eos % (Auto) 0.8 % 04/07/23 03:00 Baso % (Auto) 0.2 % 04/07/23 03:00 Neut # (Auto) 7.50 10^3/uL (1.8-7.7) 04/07/23 03:00 Lymph # (Auto) 0.5 10^3/uL (0.8-4.8) L 04/07/23 03:00 [place] # (Auto) 0.4 10^3/uL (0.2-0.9) 04/07/23 03:00 Eos # (Auto) 0.1 10^3/uL (0.0-0.8) 04/07/23 03:00 Baso # (Auto) 0.0 10^3/uL (0.0-0.1) 04/07/23 03:00 Nucleated RBC % (auto) 0 % 04/07/23 03:00 Nucleated RBCs # 0.0 /100WBC 04/07/23 03:00 Peripher Smr Path Cons Sent for review 04/02/23 03:29 PT 14.10 SECONDS (12.1-14.9) 04/03/23 04:05 INR 1.05 (0.8-1.2) 04/03/23 04:05 Sodium 127 mmol/L (136-145) L 04/07/23 03:00 Potassium 3.2 mmol/L (3.5-5.1) L 04/07/23 03:00 Chloride 92 mmol/L (98-107) L 04/07/23 03:00 Carbon Dioxide 24 mmol/L (22-29) 04/07/23 03:00 Anion Gap 14.2 (5-19) 04/07/23 03:00 BUN 63 mg/dL (6-20) H 04/07/23 03:00 Creatinine 2.8 mg/dL (0.5-0.9) H 04/07/23 03:00 GFR Calculation 17.5 mL/min (90-130) L 04/07/23 03:00 Glucose 114 mg/dL (65-115) 04/07/23 03:00 Calculated Osmolality 283 mOsm/kg (285-295) L 04/07/23 03:00 Uric Acid 7.0 mg/dL (2.4-5.7) H 04/03/23 04:05 Calcium 9.1 mg/dL (8.5-10.5) 04/07/23 03:00 Phosphorus 5.7 mg/dL (2.5-4.5) H 04/06/23 02:32 Magnesium 1.9 mg/dL (1.7-2.3) 04/06/23 02:32 Iron 75 ug/dL (37-145) 04/02/23 03:29 TIBC 157 mcg/dl 04/02/23 03:29 % Saturation 47.7 % (20-50) 04/02/23 03:29 Unsat Iron Binding 82 ug/dL (112-347) L 04/02/23 03:29 Ferritin 730 ng/mL (15-150) H 04/02/23 03:29 Total Bilirubin 0.3 mg/dL (0.15-1.2) 04/03/23 04:05 Direct Bilirubin 0.20 mg/dL (0.00-0.30) 04/01/23 23:50 AST 17 U/L (0-32) 04/03/23 04:05 ALT 24 U/L (0-33) 04/03/23 04:05 Alkaline Phosphatase 297 U/L (35-105) H 04/03/23 04:05 Creatine Kinase 22 U/L (26-192) L 04/03/23 04:05 Troponin T Baseline 70 ng/L (0-10) H 04/01/23 21:18 Troponin T 120 Minute 68.83 ng/L (0-10) H 04/01/23 23:50 Delta Troponin T -1.17 ABS# (0-10) L 04/01/23 23:50 Troponin T Hi Sens 6Hr 70.24 ng/L (0-10) H 04/02/23 03:29 Troponin T Hi Sens 6Hr Delta 0.24 ng/L (0-12) 04/02/23 03:29 C-Reactive Protein 31.5 mg/L (0.0-4.9) H 04/03/23 04:05 NT-Pro-B Natriuret Pep 24533 pg/mL (0-125) H 04/03/23 04:05 Total Protein 5.2 g/dL (6.6-8.7) L 04/03/23 04:05 Albumin 3.2 g/dL (3.5-5.2) L 04/03/23 04:05 Globulin 2.0 g/dL (1.3-4.6) 04/03/23 04:05 Bqwxv-0-Bztyupgfc 0.6 g/dL (0.2-0.3) H 04/01/23 21:18 Vxohc-8-Rwlbnrdic 0.7 g/dL (0.5-0.9) 04/01/23 21:18 Rivs-5-Jsrmdvtw 0.3 g/dL (0.4-0.6) L 04/01/23 21:18 Ktbw-6-Zxahjnvg 0.3 g/dL (0.2-0.5) 04/01/23 21:18 Gamma Globulins 0.6 g/dL (0.8-1.7) L 04/01/23 21:18 Abnorm Protein Band 1 Not Reportable 04/01/23 21:18 Procalcitonin 0.68 ng/mL (0-0.5) H 04/03/23 04:05 Urine Color Yellow (Yellow) 04/02/23 21:15 Urine Appearance Sl hazy (CLEAR) A 04/02/23 21:15 Urine pH 9 (5-7) H 04/02/23 21:15 Ur Specific [place]ro[place] 1.020 (1.005-1.030) 04/02/23 21:15 Urine Protein Neg (Negative) 04/02/23 21:15 Urine Glucose (UA) Norm (Normal) 04/02/23 21:15 Urine Ketones Negative (Negative) 04/02/23 21:15 Urine Blood Neg (Negative) 04/02/23 21:15 Urine Nitrate Negative (Negative) 04/02/23 21:15 Urine Bilirubin Neg (Negative) 04/02/23 21:15 Prot Sulfosalicylic Acd Positive (Negative) 04/02/23 21:15 Urine Urobilinogen Neg mg/dL (Negative) 04/02/23 21:15 Ur Leukocyte Esterase 2+ (Negative) H 04/02/23 21:15 Urine RBC 0-4 /hpf (0-2) H 04/02/23 21:15 Urine WBC 5-10 /hpf (0-5) H 04/02/23 21:15 Ur Squamous Epith Cells None /hpf (0-5) 04/02/23 21:15 Amorphous Sediment 2+ /hpf 04/02/23 21:15 Urine Bacteria 1+ /hpf (NONE) H 04/02/23 21:15 Ur Random Creatinine 68 mg/dL (20-275) 04/02/23 12:05 Ur Random Albumin 50 % 04/02/23 12:05 U Random Total Protein 957 mg/dL (5-24) H 04/02/23 12:05 Protein/Creatinin Ratio 80115 mg/g creat (24-184) H 04/02/23 12:05 Protein/Creat Ratio 24h 14.074 (0.024-0.184) H 04/02/23 12:05 U Random v-9-Vehckgff % 13 % 04/02/23 12:05 U Random q-2-Kmjwxtpk % 9 % 04/02/23 12:05 U Random Beta Globulin 17 % 04/02/23 12:05 U Random Gamma Glob 12 % 04/02/23 12:05 U Abnormal Prot Band 1 Not Reportable 04/02/23 12:05 U Abnormal Prot Band 2 Not Reportable 04/02/23 12:05 U Abnormal Prot Band 3 Not Reportable 04/02/23 12:05 Urine PEP Interpret See note 04/02/23 12:05 Urine Opiates Screen Positive ng/mL (Negative) H 04/04/23 09:04 Ur Barbiturates Screen Negative ng/mL (Negative) 04/04/23 09:04 Ur Phencyclidine Scrn Negative ng/mL (Negative) 04/04/23 09:04 Ur Amphetamines Screen Negative ng/mL (Negative) 04/04/23 09:04 U Benzodiazepines Scrn Negative ng/mL (Negative) 04/04/23 09:04 Urine Cocaine Screen Negative ng/mL (Negative) 04/04/23 09:04 U Marijuana (THC) Screen Negative ng/mL (Negative) 04/04/23 09:04 Pro Electrophoresis Int See note 04/01/23 21:18 Free [place] Light Chains 54.1 mg/L (3.3-19.4) H 04/02/23 03:29 Free Lambda Light Chain 43.9 mg/L (5.7-26.3) H 04/02/23 03:29 Free [place]/Lambda Ratio 1.23 (0.26-1.65) 04/02/23 03:29 Vitals Last Vital Signs Temp 97.9 F 04/07/23 09:00 Pulse 55 L 04/07/23 10:00 Resp 12 04/07/23 10:00 BP 182/108 04/07/23 10:00 Pulse Ox 97 04/07/23 10:00 O2 Del Method Nasal Cannula 04/07/23 10:00 O2 Flow Rate 2 04/07/23 10:00 Discharge Plan Discharge Patient Disposition: Home Condition: Stable Prescriptions: New clonidine HCl 0.3 mg tablet 0.3 mg PO BID 30 Days Qty: 60 0RF doxazosin 1 mg Tablet 1 mg PO Q12H 30 Days Qty: 60 0RF isosorbide mononitrate 60 mg Tablet Extended Release 24 Hr 60 mg PO DAILY 30 Days Qty: 60 0RF Continued bumetanide 1 mg Tablet 1 mg PO DAILY docusate sodium 100 mg Tablet 100 mg PO BID morphine 30 mg Tablet Extended Release 30 mg PO Q12H ondansetron 8 mg Tablet,Disintegrating 8 mg PO Q8H PRN (Reason: Nausea) oxycodone-acetaminophen 5-325 mg Tablet 1 tab PO Q4H PRN (Reason: Pain) acetaminophen 325 mg Tablet 650 mg PO Q4H PRN (Reason: Pain) albuterol sulfate 90 mcg/actuation Hfa Aerosol Inhaler 2 puff INHALATION Q6H PRN (Reason: Shortness Of Breath Or Wheezing) metoprolol tartrate 100 mg Tablet 100 mg PO BID 30 Days Qty: 60 0RF apixaban 2.5 mg Tablet 2.5 mg PO BID 30 Days Qty: 30 0RF nifedipine 90 mg Tablet Extended Release 90 mg PO DAILY 30 Days Qty: 30 0RF Changed spironolactone 25 mg Tablet 50 mg PO DAILY 30 Days Qty: 60 0RF hydralazine 50 mg Tablet 100 mg PO TID 30 Days Qty: 180 0RF Discontinued clonidine HCl 0.1 mg Tablet 0.1 mg PO Q1H PRN (Reason: Blood Pressure) Rx Instructions: every hour as needed Discharge Orders: Discharge Order (Routine); Ordered 04/07/23 Ordered By: Josias Gomes Referrals: Berny Walker MD [Referring] - 04/28/23 9:30 am (right humeral fracture) Otriz Clark DO [Primary Care Provider] - 04/14/23 9:00 am Aden Smith MD [Hospitalist] - 1-3 days (Dr. Darnell office will call you with an appt) Tabitha Toney MD [Referring] - 2 weeks (nephrology per Dr Toney office I will fax records to them and they will call you with an appt ) Discharge Diet: Regular Discharge Activity: Resume usual activity Patient Instructions: Clonidine (By mouth), Doxazosin (By mouth), Isosorbide Mononitrate (By mouth), Heart Attack (DC), Heart Healthy Diet (DC), Hyponatremia (DC), Hypertension (ED), Opioid Safety Activity Restrictions/Additional Instructions: You have an Appt with Dr Walker 04-28-2023 at 9:30 at [facility]....Please call them with your medicaid number also take the envelope with your CT disc to the appt. -If you have lightheadedness or dizziness go to the emergency room -Have your primary care provider recheck your sodium, creatinine next week -Please take your blood pressure medication as prescribed, if you have lightheadedness or dizziness go to emergency room Discharge Attestations Time Spent in Discharge Care*: greater than 30 min Quality Metrics Clinical Quality Measures [ No reported AMI, CVA or VTE this stay] Coding Level of Care Code 68396 Total time (in minutes) for Discharge: 60 Diagnoses Hypertensive urgency I16.0 Acute encephalopathy G93.40 Chronic renal failure N18.9 Anemia D64.9 Bladder cancer C67.9 Urothelial cancer C68.9 Cancer, metastatic to bone C79.51 Humerus head fracture S42.293A Pathologic fracture of femur M84.453A Pathological fracture of right humerus with delayed healing M84.421G Protein calorie malnutrition E46 Physical deconditioning R53.81 Metastasis to liver C78.7 Mediastinal lymphadenopathy R59.0 Cancer of left acromial process C40.02 Retroperitoneal lymphadenopathy R59.0 Hx of total cystectomy Z90.6 Closed compression fracture of body of lumbar vertebra S32.000A NSTEMI (non-ST elevated myocardial infarction) I21.4 Intractable pain R52 Resistant hypertension I10 Hyponatremia E87.1
[2023-04-07] MEDS: bumetanide 1 mg Tablet PO (11:19)
[2023-04-07 11:27] LABS: Anion Gap 15.3 (5-19); Blood Urea Nitrogen 58 mg/dL (6-20); Calcium 8.9 mg/dL (8.5-10.5); Carbon Dioxide 22 mmol/L (22-29); Chloride 92 mmol/L (98-107); Glucose 125 mg/dL (65-115); Osmolality Calculated 280 mOsm/kg (285-295); Potassium 3.3 mmol/L (3.5-5.1); Sodium 126 mmol/L (136-145)
--- NOTE | 2023-04-07 12:27 | PC.NURSE ---
Dr. Gomes on unit gave verbal order for a referral for patient to see Dr. Pimentel in 1 month for Closed compression fracture of body of lumbar vertebra follow up.
--- NOTE | 2023-04-07 13:31 | PC.NURSE ---
Extensive education provided to patient at [facility] at bedside regarding follow up care and patient conditions, and home medications sent to pharmacy. Patient also provided with written education on medications and follow up care as well as diet and exercise. IV removed and documented. Dr. Gomes notified of patient discharge. Patient and family had no questions at time of discharge. Patient wearing shoulder and back brace. Patient belongings with patient.
--- NOTE | 2023-04-07 14:09 | P.PN_ITS ---
Subjective Subjective: feels better plan for discharge today Vitals/I&O/Wt Last Vital Signs Temp 98.0 F 04/07/23 10:42 Pulse 56 L 04/07/23 11:00 Resp 14 04/07/23 11:00 BP 139/82 04/07/23 12:00 Pulse Ox 98 04/07/23 11:00 O2 Del Method Room Air 04/07/23 11:00 O2 Flow Rate 2 04/07/23 10:00 04/06/23 04/07/23 04/07/23 22:59 06:59 14:59 Intake Total 422 / 782 100 / 882 290 / 290 Output Total 150 / 650 1000 / 1650 Balance 272 / 132 -900 / -768 290 / 290 Weight last 48 hrs Weight 63.321 kg Weight 63.775 kg Physical Exam Const: COMMON NORMALS: no acute distress and alert Neuro: SENSORIUM/ORIENTATION: Yes alert Data 04/07/23 03:00 04/07/23 11:00 Micro: Microbiology 04/02/23 21:15 Urine Culture - Preliminary Urine,Clean Catch Gram Negative Rods Gram Negative Rods#2 Other data: seen via telemedicine with assistance of RN at bedside A&P Assessment and plan (1) Hypertensive urgency: (2) Chronic renal failure: Plan 1. Hypertension, BP improved, not on ACEi or ARB due to advanced renal dysfunc tion. 2. Chronic kidney disease, renal function stable 3. Hyponatremia, possible SIADH due to metastatic cancer 4. Hypokalemia, spironolactone increased 5. Anemia, iron replete 6. Metastatic urothelial cancer Recommend: continue current medications. Resume bumex 1 mg daily, increase potassium intake in diet. Close follow-up with primary MD as outpatient, referral to nephrology. Attestations Medical Necessity Statement*: per primary service Time Spent in Patient Care: less than 15 minutes Coding Level of Care Code Acute Code for Chg Fwd Diagnoses Hypertensive urgency I16.0 Chronic renal failure N18.9
[2023-04-07 20:59] LABS: Metanephrine Total Free 112 pg/mL (<=205)
[2023-04-11 01:20] LABS: Plasma Renin Activity LC/MS/MS 138.84 ng/mL/h (0.25-5.82)
[2023-04-13 14:29] LABS: Calculated Total (E+NE) <13 (9-74); Creatinine, Random Urine 47 mg/dL (20-275); Epinephrine Urine <4 (2-16); Norepinphrine Urine <9 (7-65)
== END 2023-04-07 13:35 | disposition home or self-care (01) | DRG 281 ==
LOC: ER 04-02 01:19 → ICU 04-02 01:35
PROVIDERS: Hospitalist; Internal Medicine; Admitting Provider Internal Medicine; Emergency Provider Emergency Medicine; PCP Family Medicine; Visit Provider Family Medicine
DX: I16.0 Hypertensive urgency (principal); I21.A1 Myocardial infarction type 2; C78.7 Secondary malignant neoplasm of liver and intrahepatic bile duct; C79.51 Secondary malignant neoplasm of bone; N18.4 Chronic kidney disease, stage 4 (severe); E22.2 Syndrome of inappropriate secretion of antidiuretic hormone; G93.40 Encephalopathy, unspecified; M84.521A Pathological fracture in neoplastic disease, right humerus, initial encounter for fracture; E46 Unspecified protein-calorie malnutrition; C67.9 Malignant neoplasm of bladder, unspecified; I12.9 Hypertensive chronic kidney disease with stage 1 through stage 4 chronic kidney disease, or unspecified chronic kidney disease; E87.6 Hypokalemia; D50.9 Iron deficiency anemia, unspecified; Z85.3 Personal history of malignant neoplasm of breast; Z79.891 Long term (current) use of opiate analgesic; Z68.21 Body mass index [BMI] 21.0-21.9, adult; D63.1 Anemia in chronic kidney disease; M79.604 Pain in right leg; G89.3 Neoplasm related pain (acute) (chronic); Z92.21 Personal history of antineoplastic chemotherapy; F17.290 Nicotine dependence, other tobacco product, uncomplicated; Z90.11 Acquired absence of right breast and nipple
CPT/HCPCS: 36415; 70450; 71045; 71250; 73200; 74176; 77075; 80048; 80053; 80076; 80306; 81001; 82384; 82550; 82570; 82728; 83540; 83550; 83735; 83835; 83880; 83883; 84100; 84145; 84155; 84156; 84165; 84166; 84244; 84484; 84550; 85025; 85610; 86140; 87077; 87086; 87186; 92523; 92610; 93005; 93970; 93975; 94640; 96365; 96375; 96376; 97110; 97116; 97163; 97167; 97530; 99285; J0360; J0696; J1940; J2270; J2405; J3475; J3480; J3490; J7040; J7626; L3650; Q3014